=== PATIENT | female | born 1960 | race Caucasian/White ===

== ENCOUNTER 2018-09-24 15:24 | Inpatient (IN) ==
[2018-09-24 16:50] LABS: Basophils % 0.2 %; Eosinophils # 0.2 K/mcL (0.0-0.6); Eosinophils % 1.8 %; Hematocrit 26.6 % (35.3-44.9); Hemoglobin 7.9 g/dL (11.5-15.4); Immature Granulocytes % 0.8 % (0-4); Lymphocytes # 1.5 K/mcL (0.6-4.6); Lymphocytes % 16.8 %; Mean Corpuscular HGB Conc 29.7 g/dL (31.6-35.5); Mean Corpuscular Hemoglobin 27.8 pg (28.0-33.3); Mean Corpuscular Volume 93.7 fL (83.0-100.0); Mean Platelet Volume 8.7 fL (9.4-12.4); Monocytes % 11.3 %; Neutrophils # 6.3 K/mcL (1.6-8.9); Platelet Count 260 K/mcL (140-400); Red Blood Count 2.84 M/mcL (3.82-4.97); Red Cell Distribution Width 15.9 % (11.5-14.5); Segmented Neutrophils % 69.1 %; White Blood Count 9.1 K/mcL (4.3-11.1)
[2018-09-24 17:19] LABS: BUN/Creatinine Ratio 27 (6-26); Blood Urea Nitrogen 28 mg/dL (6-20); Calcium 9.3 mg/dL (8.6-10.3); Carbon Dioxide 42 mEq/L (23-29); Chloride 83 mEq/L (98-107); Glucose 71 mg/dL (70-105); Osmolality,Calculated 286 (280-300); Potassium 4.1 mEq/L (3.5-5.1); Sodium 136 mEq/L (136-145); Troponin I < 0.03 ng/mL (< 0.04); eGFR For African Americans > 60 (> 60); eGFR For Non-African Americans 54 (> 60)
[2018-09-24] MEDS ORDERED: cefTRIAXone 1,000 MG in Water for inj. (sterile) 10 ML IVP ONE (17:30)
[2018-09-24 17:58] LABS: Bilirubin,Urine Negative (Negative); Blood,Urine Moderate (Negative); Clarity,Urine Turbid (Clear); Color,Urine Yellow (Yellow); Glucose,Urine (UA) Normal (Normal); Ketones,Urine Negative (Negative); Leukocyte Esterase,Urine Large (Negative); Nitrite,Urine Positive (Negative); Protein,Urine 30 mg/dL (Neg-Trace); Specific Gravity,Urine 1.011 (1.010-1.025); Urobilinogen,Urine Normal (Normal)
[2018-09-24 18:00] LABS: Bacteria,Urine Many per hpf (None-Few); Hyaline Casts,Urine None Seen per lpf (None-Few); Squamous Epithelial Cell,Urine Many per lpf (None-Few); WBC,Urine TNTC per hpf (0-3)
[2018-09-24] MEDS ORDERED: Furosemide 40 MG/4 ML VIAL IVP ONE (18:22)
--- NOTE | 2018-09-24 18:26 | Emergency Department Note ---
Disposition Clinical Impression: Congestive heart failure, Anemia, UTI (urinary tract infection) Disposition: Admitted As Inpatient Condition: Fair Time of Disposition: 19:00 SOB HPI - General Chief Complaint: ED Shortness of Breath/Dyspnea Stated Complaint: RITU/Swelling Time Seen by Provider: 09/24/18 15:38 Source: patient, other Limitations: no limitations - History of Present Illness Patient is a 58-year-old female with history of CHF and COPD who arrives from the nursing facility for concerns of progressive shortness of breath over the past few weeks. Per the aide at bedside, the patient has been seen at an [facility] facility for these symptoms on multiple occasions, she has been hospitalized in the past, her last ED visit she was given Lasix and discharge. In addition, the patient was seen last at the outlying facility, tightness with UTI and prescribed an antibiotic, however the aide has had this prescription filled but she has not began treatment. The aide at bedside presents today stating that the patient continues to get worse and I will stop her concern about her and feel that she needs to be hospitalized. The patient does complain of source of breath and states "I cannot breathe" continuously. She also complains of bilateral leg pain similar to swelling. In addition, she complains of increased urinary frequency. Patient denies any fevers or chills, nausea, vomiting, chest pain, source of breath, abdominal pain or persistent sym ptoms. - Related Data Home Medications Medication Instructions Recorded Confirmed Aripiprazole [Abilify] 20 mg PO DAILY 08/11/18 09/24/18 Aspirin [Adult Aspirin Regimen] 81 mg PO DAILY 08/11/18 09/24/18 Atorvastatin [Lipitor] 40 mg PO DAILY 08/11/18 09/24/18 Divalproex Sodium 1,000 mg PO BID 08/11/18 09/24/18 Dulaglutide [Trulicity] 0.75 mg SQ BAUTISTA 08/11/18 09/24/18 Furosemide [Lasix] 40 mg PO BID 08/11/18 09/24/18 Gabapentin [Neurontin] 300 mg PO BID 08/11/18 09/24/18 Glucagon,Human Recombinant 1 mg SQ ONCE PRN 08/11/18 09/24/18 [Glucagon Emergency Kit] Glucose Gel 1 tube PO ONCE PRN 08/11/18 09/24/18 Guaifenesin [Mucinex] 600 mg PO Q12H 08/11/18 09/24/18 Ibuprofen [Ibu-200] 200 mg PO Q8H PRN 08/11/18 09/24/18 Insulin ASPART [Novolog Flexpen] 17 unit SQ HS 08/11/18 09/24/18 Insulin ASPART [Novolog Flexpen] 24 unit SQ QAM 08/11/18 09/24/18 Insulin ASPART [Novolog Flexpen] 124 unit SQ QPM 08/11/18 09/24/18 Iprat-Albut 0.5-3(2.5) mg/3 ml 1 vial IH Q6HR PRN 08/11/18 09/24/18 Lactase [Lactaid] 3,000 unit PO Q6H PRN 08/11/18 09/24/18 Levothyroxine [Synthroid] 50 mcg PO DAILY 08/11/18 09/24/18 Lisinopril [Zestril] 40 mg PO DAILY 08/11/18 09/24/18 [place] Carbonate 150 mg PO HS 08/11/18 09/24/18 Loratadine [Allergy Relief] 10 mg PO DAILY 08/11/18 09/24/18 Melatonin 6 mg PO HS 08/11/18 09/24/18 Metformin HCl [Glucophage] 1,000 mg PO BID 08/11/18 09/24/18 Multivitamin [One Daily Essential] 1 tab PO DAILY 08/11/18 09/24/18 [place]-3/Dha/Epa/Fish Oil [[place] 3 2 cap PO HS 08/11/18 09/24/18 500 Softgel] Oxygen 2 l IH DAILY PRN 08/11/18 09/24/18 Ranitidine HCl [Heartburn Relief] 150 mg PO BID 08/11/18 09/24/18 Saline Nasal [place] [[place] Nasal 1 spray NS QID 08/11/18 09/24/18 [place]] Topiramate [Topamax] 25 mg PO BID 08/11/18 09/24/18 hydroCHLOROthiazide 25 mg PO DAILY 08/11/18 09/24/18 [Hydrochlorothiazide] risperiDONE [Risperdal] 3 mg PO DAILY 08/11/18 09/24/18 Cholecalciferol (Vitamin D3) 2,000 unit PO DAILY 09/24/18 09/24/18 [Vitamin D3] Clotrimazole/Betameth Dip CRM 1 appl TP BID 09/24/18 09/24/18 [Lotrisone CRM] Hydrocortisone [Proctozone-Hc] 1 appl TP BID 09/24/18 09/24/18 Insulin DETEMIR [Levemir Flextouch] 85 unit SQ BID 09/24/18 09/24/18 Mag Hydrox/Al Hydrox/Simeth 30 ml PO Q4H PRN 09/24/18 09/24/18 [Maalox] Previous Rx's Medication Instructions Recorded Metoprolol [Lopressor] 12.5 mg PO BID #60 tablet 08/17/18 Allergies Allergy/AdvReac Type Severity Reaction Status Date / Time benztropine Allergy See Verified 08/10/18 21:52 Comments chlorpromazine Allergy See Verified 08/10/18 21:52 [From Thorazine] Comments codeine Allergy See Verified 08/10/18 21:52 Comments haloperidol [From Haldol] Allergy See Verified 08/10/18 21:52 Comments lorazepam Allergy See Verified 08/10/18 21:52 Comments Penicillins Allergy See Verified 08/10/18 21:52 Comments Sulfa (Sulfonamide Allergy See Verified 08/10/18 21:52 Antibiotics) Comments Review of Systems: REVIEW OF SYSTEMS: Constitutional: No F/C, No excessive fatigue Eye: No acute visual changes HENT: No sore throat, No rhinorrhea Resp: Admits to shortness of breath, cough Cardio: No palpitations, No chest pain GI: No abdominal pain, No nausea, No vomiting, No constipation, No diarrhea, No melena or hematochezia : Admits to polyuria, No dysuria, No hematuria Musculoskeletal: No new joint swelling, No back pain Neuro: No isolated numbness or weakness, No headaches Skin: Admits to swelling, No skin yellowing/jaundice, No pruritus Past Medical History - Past Medical History Attestation: Yes The following information was validated with the patient. Medical history: Reports: CHF, COPD, diabetes, GERD, hyperlipidemia, hypertension Psychiatric history: Reports: other - Social History Smoking Status: Never smoker Alcohol use: Reports: none Drug use: Reports: none Physical Exam PHYSICAL EXAM: Constitutional: Obese female, Age HENT: NC/AT, Mucous membranes moist Eyes: No scleral icterus, No photophobia, EOMI Neck: No nuchal rigidity, Supple, Trachea midline Cardiac: Regular rate and rhythm, S1 and S2 normal, no S3, S4, no murmurs gallops or rubs Thorax & Lungs: Mild lung crackles noted diffusely, no wheezes, or rhonchi, No chest tenderness Abdomen: Soft, non-tender, non-distended, no rebound or guarding Skin: Warm, dry, pink, No mottling Extremities: 2+ pitting edema of the bilateral oximeter is, No deformities Musculoskeletal: Normal tone Neurologic: sensory and motor strength fully intact in all extremities, no aphasia or dysarthria Psychiatric: appropriately oriented for baseline - General Limitations: no limitations Course Vital Signs Temperature 98.6 F 09/24/18 15:25 Pulse Rate 92 09/24/18 15:25 Respiratory Rate 20 09/24/18 15:25 Blood Pressure 124/62 09/24/18 15:25 O2 Sat by Pulse Oximetry 89 09/24/18 15:25 Temperature 98.6 F 09/24/18 15:25 Pulse Rate 92 09/24/18 15:25 Respiratory Rate 20 09/24/18 15:25 Blood Pressure 124/62 09/24/18 15:25 O2 Sat by Pulse Oximetry 98 09/24/18 16:42 Oxygen Delivery Oxygen Delivery Nasal [place] Shortness of Breath/Dyspnea - MDM Narrative Medical decision making narrative: Patient is a 58-year-old male who presents from an outlying facility for concerns of increasing soreness of breath and lower external swelling. She has been seen in an outlying facility for the symptoms on additional occasions, prescribed Lasix at that time and discharged home. She presents today with nursing staff stating that they are concerned that her symptoms are worsening. In addition, discussion with the aid at bedside, there is some confusion on whether or not the patient is actually taking Lasix daily as she is prescribed. On physical exam, the patient is overall uncomfortable but nontoxic appearing. She does have diffuse crackles notable throughout all lobes and notable bilateral lower extremity edema. She is afebrile here and hemodynamic stable. On workup performed, she does have a notable increase in diffuse put or edema on her chest x-ray as compared to her prior chest x-ray. In addition, she is slightly anemic at hemoglobin 7.9 as well as positive for UTI which is known to the patient and a bedside which has yet to be treated. She was treated in the emergency department with Lasix as well as started on Rocephin. Based on her overall clinical appearance as well as work up that is performed today, I do feel she wants hospitalization. - Differential Diagnosis Likely: congestive heart failure - Medical Records Medical records reviewed: Yes I reviewed the patient's medical records. - Lab Data Lab results reviewed: Yes I reviewed the patient's lab results. Result diagrams: 09/24/18 16:36 09/24/18 16:36 Lab Results 09/24/18 09/24/18 09/24/18 Range/Units 16:36 16:36 16:36 WBC 9.1 (4.3-11.1) K/mcL RBC 2.84 L (3.82-4.97) M/mcL Hgb 7.9 L (11.5-15.4) g/dL Hct 26.6 L (35.3-44.9) % MCV 93.7 (83.0-100.0) fL MCH 27.8 L (28.0-33.3) pg MCHC 29.7 L (31.6-35.5) g/dL RDW 15.9 H (11.5-14.5) % Plt Count 260 (140-400) K/mcL MPV 8.7 L (9.4-12.4) fL Immature Gran % 0.8 (0-4) % Seg Neutrophils % 69.1 % Lymphocytes % 16.8 % Monocytes % 11.3 % Eosinophils % 1.8 % Basophils % 0.2 % Neutrophils # 6.3 (1.6-8.9) K/mcL Lymphocytes # 1.5 (0.6-4.6) K/mcL Monocytes # 1.0 (0.0-1.3) K/mcL Eosinophils # 0.2 (0.0-0.6) K/mcL Basophils # 0.0 (0.0-0.2) K/mcL Sodium 136 (136-145) mEq/L Potassium 4.1 (3.5-5.1) mEq/L Chloride 83 L (98-107) mEq/L Carbon Dioxide 42 H* (23-29) mEq/L BUN 28 H (6-20) mg/dL Creatinine 1.05 (0.60-1.20) mg/dL Est GFR ( Amer) > 60 (> 60) Est GFR (Non-Af Amer) 54 L (> 60) BUN/Creatinine Ratio 27 H (6-26) Glucose 71 (70-105) mg/dL Calculated Osmolality 286 (280-300) Lactic Acid 0.9 (0.5-2.2) mmol/L Calcium 9.3 (8.6-10.3) mg/dL Troponin I < 0.03 (< 0.04) ng/mL B-Natriuretic Peptide (Less than 100) pg/mL Urine Color (Yellow) Urine Clarity (Clear) Urine pH (5.0-8.0) pH Units Ur Specific [place] (1.010-1.025) Urine Protein (Neg-Trace) mg/dL Urine Glucose (UA) (Normal) mg/dL Urine Ketones (Negative) mg/dL Urine Blood (Negative) Urine Nitrite (Negative) Urine Bilirubin (Negative) Urine Urobilinogen (Normal) mg/dL Ur Leukocyte Esterase (Negative) Urine Microscopic RBC (0-3) per hpf Urine Microscopic WBC (0-3) per hpf Ur Squamous Epith Cells (None-Few) per lpf Urine Bacteria (None-Few) per hpf Hyaline Casts (None-Few) per lpf 09/24/18 09/24/18 09/24/18 Range/Units 16:36 17:36 18:12 WBC (4.3-11.1) K/mcL RBC (3.82-4.97) M/mcL Hgb (11.5-15.4) g/dL Hct (35.3-44.9) % MCV (83.0-100.0) fL MCH (28.0-33.3) pg MCHC (31.6-35.5) g/dL RDW (11.5-14.5) % Plt Count (140-400) K/mcL MPV (9.4-12.4) fL Immature Gran % (0-4) % Seg Neutrophils % % Lymphocytes % % Monocytes % % Eosinophils % % Basophils % % Neutrophils # (1.6-8.9) K/mcL Lymphocytes # (0.6-4.6) K/mcL Monocytes # (0.0-1.3) K/mcL Eosinophils # (0.0-0.6) K/mcL Basophils # (0.0-0.2) K/mcL Sodium (136-145) mEq/L Potassium (3.5-5.1) mEq/L Chloride (98-107) mEq/L Carbon Dioxide (23-29) mEq/L BUN (6-20) mg/dL Creatinine (0.60-1.20) mg/dL Est GFR ( Amer) (> 60) Est GFR (Non-Af Amer) (> 60) BUN/Creatinine Ratio (6-26) Glucose (70-105) mg/dL Calculated Osmolality (280-300) Lactic Acid 0.5 (0.5-2.2) mmol/L Calcium (8.6-10.3) mg/dL Troponin I (< 0.04) ng/mL B-Natriuretic Peptide 110 H (Less than 100) pg/mL Urine Color Yellow (Yellow) Urine Clarity Turbid A (Clear) Urine pH 6.0 (5.0-8.0) pH Units Ur Specific [place] 1.011 (1.010-1.025) Urine Protein 30 H (Neg-Trace) mg/dL Urine Glucose (UA) Normal (Normal) mg/dL Urine Ketones Negative (Negative) mg/dL Urine Blood Moderate H (Negative) Urine Nitrite Positive A (Negative) Urine Bilirubin Negative (Negative) Urine Urobilinogen Normal (Normal) mg/dL Ur Leukocyte Esterase Large H (Negative) Urine Microscopic RBC 5-15 H (0-3) per hpf Urine Microscopic WBC TNTC H (0-3) per hpf Ur Squamous Epith Cells Many H (None-Few) per lpf Urine Bacteria Many H (None-Few) per hpf Hyaline Casts None Seen (None-Few) per lpf - Radiology Data Radiology results reviewed: Yes I reviewed the patient's radiology results. - EKG Data EKG attestation: Yes I reviewed and interpreted this EKG. EKG shows normal: Reports: sinus rhythm, axis Rate: Reports: normal [place]/QRS: Reports: RBBB, LPHB/LPFB, bifascicular block When compared to previous EKG there are: no significant changes Interpretation: Reports: no acute changes
[2018-09-24] MEDS ORDERED: Naloxone 0.4 MG/ML INJ IVP PRN (20:16)
--- NOTE | 2018-09-24 20:16 | Internal Med History&Physical ---
Date of Encounter: 09/24/18 Time of Encounter: 21:04 Internal Medicine - H&P: HPI Chief complaint: CHF exacerbation, urinary tract infection, anemia Admitted From: Emergency Dept Plans for Post Hospital Care: Home History of present illness: Ms. Dill is a 58 year old female Patient presented to the emergency department with shortness of breath that has progressed over the last few weeks. She was recently seen here at this facility, for similar complaints, was found to have a pelvic mass. She was to follow-up with her PCP and be referred to [facility] for further evaluation. She was given Lasix during that admission, and responded well. She had improvement in her breathing as well as lower extremity swelling. For the last several days however patient was getting more short of breath, and had increased urinary frequency. She returned to the emergency department for further evaluation. Emergency department patient's initial vital signs: Temperature 98.6, pulse 92, respiratory rate 20, blood pressure 124/62, O2 saturation 98% on 3 L CBC: White count 9.1, hemoglobin 7.9, platelets 260 BMP: Sodium 136, potassium 4.1, chloride 83, bicarbonate 42, BUN 28, creatinine 1.05, glucose 71 Lactic acid 0.9 Initial troponin undetectable BNP 110 Urinalysis: 30 protein, positive nitrite, large leukocyte esterase, too numerous to count white blood cells, many bacteria. EKG: Sinus rhythm, rate 86, Qtc 481ms. No ischemic changes, no changes from previous EKG. In the emergency department patient received a dose of ceftriaxone and Lasix. She was admitted to the hospital for further evaluation. Upon my evaluation patient is resting comfortably in no acute distress. she says that she is "Swollen all over" and states that she has pain with urination. She also says that she can not catch her breath. She normally wears oxygen at her [facility]. Her hearing care practitioner is not at bedside. Patient denies chest pain, a bdominal pain, nausea, vomiting, diarrhea and constipation. She has had a non- productive cough. Past Med Surg Social Fam HX - Past Medical History Medical history: CHF, COPD, diabetes, GERD, hyperlipidemia, hypertension Psychiatric history: other - Social History Smoking Status: Never smoker Alcohol use: none Drug use: none - Family History Mother History Unknown: Yes Father History Unknown: Yes Internal Medicine - H&P: Meds Aripiprazole [Abilify] 20 mg PO DAILY 08/11/18 [History] Aspirin [Adult Aspirin Regimen] 81 mg PO HS 08/11/18 [History] Atorvastatin [Lipitor] 40 mg PO DAILY 08/11/18 [History] Divalproex Sodium 1,000 mg PO BID 08/11/18 [History] Dulaglutide [Trulicity] 0.75 mg SQ BAUTISTA 08/11/18 [History] Furosemide [Lasix] 40 mg PO BID 08/11/18 [History] Gabapentin [Neurontin] 300 mg PO BID 08/11/18 [History] Glucagon,Human Recombinant [Glucagon Emergency Kit] 1 mg SQ ONCE PRN 08/11/18 [History] Guaifenesin [Mucinex] 600 mg PO DAILY 08/11/18 [History] Ibuprofen [Ibu-200] 200 mg PO Q8H PRN 08/11/18 [History] Insulin ASPART [Novolog Flexpen] 17 unit SQ HS 08/11/18 [History] Insulin ASPART [Novolog Flexpen] 24 unit SQ TIDWM 08/11/18 [History] Lactase [Lactaid] 3,000 unit PO Q6H PRN 08/11/18 [History] Levothyroxine [Synthroid] 50 mcg PO 0730 08/11/18 [History] Loratadine [Allergy Relief] 10 mg PO DAILY 08/11/18 [History] Melatonin 6 mg PO HS 08/11/18 [History] Metformin HCl [Glucophage] 1,000 mg PO BID 08/11/18 [History] Multivitamin [One Daily Essential] 1 tab PO DAILY 08/11/18 [History] [place]-3/Dha/Epa/Fish Oil [[place] 3 500 Softgel] 2 cap PO HS 08/11/18 [History] Ranitidine HCl [Heartburn Relief] 150 mg PO BID 08/11/18 [History] Saline Nasal [place] [[place] Nasal [place]] 1 spray NS QID 08/11/18 [History] Topiramate [Topamax] 25 mg PO BIDWM 08/11/18 [History] hydroCHLOROthiazide [Hydrochlorothiazide] 25 mg PO DAILY 08/11/18 [History] Metoprolol [Lopressor] 12.5 mg PO BID #60 tablet 08/17/18 [Rx] Cholecalciferol (Vitamin D3) [Vitamin D3] 2,000 unit PO DAILY 09/24/18 [History] Clotrimazole/Betameth Dip CRM [Lotrisone CRM] 1 appl TP BID 09/24/18 [History] Hydrocortisone [Proctozone-Hc] 1 appl TP BID 09/24/18 [History] Insulin DETEMIR [Levemir Flextouch] 85 unit SQ Q12H 09/24/18 [History] Ipratropium/Albuterol Neb [Duoneb] 3 ml IH Q6HR PRN 09/24/18 [History] Lisinopril [Zestril] 40 mg PO DAILY 09/24/18 [History] [place] Carbonate 150 mg PO HS 09/24/18 [History] Mag Hydrox/Al Hydrox/Simeth [Maalox] 30 ml PO Q4H PRN 09/24/18 [History] risperiDONE [Risperdal] 3 mg PO DAILY 09/24/18 [History] Allergy/AdvReac Type Severity Reaction Status Date / Time benztropine Allergy See Verified 08/10/18 21:52 Comments chlorpromazine Allergy See Verified 08/10/18 21:52 [From Thorazine] Comments codeine Allergy See Verified 08/10/18 21:52 Comments haloperidol [From Haldol] Allergy See Verified 08/10/18 21:52 Comments lorazepam Allergy See Verified 08/10/18 21:52 Comments Penicillins Allergy See Verified 08/10/18 21:52 Comments Sulfa (Sulfonamide Allergy See Verified 08/10/18 21:52 Antibiotics) Comments All Systems PM: A 10-system review of systems was performed and is negative for pertinent findings except as documented above in the HPI. - Constitutional Vitals: Temp Pulse Resp BP Pulse Ox 98.6 F 92 20 124/62 98 09/24/18 15:25 09/24/18 15:25 09/24/18 15:25 09/24/18 15:25 09/24/18 16:42 General appearance: Present: cooperative, A&O X 3, pleasant, no acute distress, answers questions appropriately Exam: - - Head Head exam: Present: normal inspection - Eye Eye exam: Present: EOMI, normal appearance - Respiratory Respiratory exam: Present: rales. Absent: accessory muscle use, decreased breath sounds, CTAB, respiratory distress, rhonchi, wheezes - Cardiovascular Cardiovascular exam: Present: RRR. Absent: diastolic murmur, systolic murmur - GI/Abdominal GI/Abdominal exam: Present: normal bowel sounds, soft. Absent: tenderness - Extremities Exam Extremities exam: Present: pedal edema, warm, radial pulses palpable and symmetrical. Absent: tenderness Additional comments: 2+ pitting edema bilaterally lower extremities - Neurological Exam Neurological exam: Present: no focal deficits, strengths equal and symetr throughout. Absent: motor sensory deficit, facial droop, speech deficit - Skin Skin exam: Present: dry, erythema, normal color, warm Additional comments: Erythema in lower extremities, not tender to palpation. Likely chronic vascular changes Internal Med - H&P Results - Labs CBC & Chem 7: 09/24/18 16:36 09/24/18 16:36 Labs: Short CBC 09/24/18 Range/Units 16:36 WBC 9.1 (4.3-11.1) K/mcL Hgb 7.9 L (11.5-15.4) g/dL Hct 26.6 L (35.3-44.9) % Plt Count 260 (140-400) K/mcL Neutrophils # 6.3 (1.6-8.9) K/mcL BMP 09/24/18 16:36 Sodium 136 Potassium 4.1 Chloride 83 L Carbon Dioxide 42 H* BUN 28 H Creatinine 1.05 Glucose 71 Calcium 9.3 Cardiac Enzymes 09/24/18 Range/Units 16:36 Troponin I < 0.03 (< 0.04) ng/mL Urine 09/24/18 Range/Units 17:36 Urine Color Yellow (Yellow) Urine Clarity Turbid A (Clear) Urine pH 6.0 (5.0-8.0) pH Units Ur Specific [place] 1.011 (1.010-1.025) Urine Protein 30 H (Neg-Trace) mg/dL Urine Glucose (UA) Normal (Normal) mg/dL - Impressions ITS Impressions Chest X-Ray 09/24/18 15:39 IMPRESSION: Diffuse bilateral heterogeneous opacities, right greater than left. Findings suggest pulmonary edema. Underlying infection is not excluded. Follow-up PA and lateral chest radiographs may be helpful for further evaluation. Cardiomegaly. D/ / Jimbo Sessions / Jimbo Sessions Interpreting Provider: Jimbo Sessions - Assessment and Plan (1) UTI (urinary tract infection) Current Visit: Yes Status: Acute Assessment and plan: Positive urinalysis, patient was started on ceftriaxone in the ER. Urine culture was not originally ordered by ER, but I requested one done on urine obtained prior to the antibiotics. Patient has dysuria as well. Continue ceftriaxone follow up culture results Monitor for worsening signs of infection. Qualifiers: Urinary tract infection type: site unspecified Hematuria presence: with hematuria Qualified Code(s): N39.0 - Urinary tract infection, site not specified; R31.9 - Hematuria, unspecified (2) Congestive heart failure (CHF) Current Visit: No Status: Suspected Assessment and plan: Patient presented with fluid overload, similar to her last admission. Echo attempted at that time, but patient was not cooperative. Given lasix in the ER. Continue IV lasix Strict I's&O's Daily weights Attempt repeat echo Qualifiers: Heart failure type: diastolic Heart failure chronicity: acute on chronic Qualified Code(s): I50.33 - Acute on chronic diastolic (congestive) heart failure (3) Anemia Current Visit: Yes Status: Acute Assessment and plan: Patient's hemoglobin now 7.9, down from 9.7 when she was here about 1 month ago. Denies active bleeding. Does have a pelvic mass which was discovered during her previous admission, was to follow up with [facility]. Based on labs obtained during previous admission, patient has iron deficiency anemia. Start Iron supplementation Type and screen Continue to monitor Transfuse if indicated Qualifiers: Anemia type: unspecified type Qualified Code(s): D64.9 - Anemia, unspecified (4) Peripheral edema Current Visit: No Status: Acute Assessment and plan: Likely secondary to heart failure Reattempt Echocardiogram Continue IV lasix Strict I's&O's Daily weights fluid restriction diet (5) Diabetes Current Visit: No Status: Chronic Assessment and plan: Patient is not insulin dependent diabetic Monitor sugars ACHS Diabetic diet Low dose insulin sliding scale as needed Hold home meds. Qualifiers: Diabetes mellitus type: type 2 Diabetes mellitus intermediate teacher insulin use: with usp use Diabetes mellitus complication status: with hyperglycemia Qualified Code(s): E11.65 - Type 2 diabetes mellitus with hyperglycemia; Z79.4 - senior care (current) use of insulin (6) Cognitive developmental delay Current Visit: No Status: Chronic Assessment and plan: Continue to monitor (7) DVT prophylaxis Current Visit: No Status: Acute Assessment and plan: SCDs - Time Spent With Patient Total time spent is greater than 50% in coordination of care (as documented) at patient's floor/unit and/or counseling patient: Greater than 35 minutes
[2018-09-24] MEDS ORDERED: *HR* Dextrose 50 % in Water (Syg) 50 ML SYRINGE IVP PRN (21:22)
[2018-09-24] MEDS ORDERED: D5% in Water 1,000 ML IVC PRN (21:22)
[2018-09-24] MEDS ORDERED: Dextrose Gel 15 GM/37.5 ML TUBE PO PRN ×2 (21:22)
[2018-09-25 05:04] LABS: ABG Base Excess 15 mEq/L (-2 to 3); ABG HCO3 42 mEq/L (21-27); ABG Oxygen Saturation 88 % (95-98); ABG PCO2 73 mmHg (35-45); ABG PH 7.37 pH Units (7.32-7.45); ABG PO2 60 mmHg (85-104); ABG TCO2 45 mEq/L (20-26)
[2018-09-25 05:49] LABS: BUN/Creatinine Ratio 27 (6-26); Blood Urea Nitrogen 26 mg/dL (6-20); Calcium 9.3 mg/dL (8.6-10.3); Carbon Dioxide 39 mEq/L (23-29); Chloride 85 mEq/L (98-107); Glucose 141 mg/dL (70-105); Osmolality,Calculated 279 (280-300); Potassium 4.1 mEq/L (3.5-5.1); Sodium 131 mEq/L (136-145); eGFR For African Americans > 60 (> 60); eGFR For Non-African Americans 58 (> 60)
[2018-09-25 06:30] LABS: Hematocrit 29.4 % (35.3-44.9); Hemoglobin 8.7 g/dL (11.5-15.4); Mean Corpuscular HGB Conc 29.6 g/dL (31.6-35.5); Mean Corpuscular Hemoglobin 28.7 pg (28.0-33.3); Mean Platelet Volume 9.5 fL (9.4-12.4); Platelet Count 193 K/mcL (140-400); Red Blood Count 3.03 M/mcL (3.82-4.97); Red Cell Distribution Width 16.1 % (11.5-14.5); White Blood Count 8.9 K/mcL (4.3-11.1)
[2018-09-25] MEDS: cefTRIAXone 1,000 MG in Water for inj. (sterile) 10 ML IVP SCH (08:42)
[2018-09-25] MEDS: Insulin LISPRO 300 UNITS/3 ML VIAL SQ SCH ×4 (08:43→22:51)
[2018-09-25] MEDS: Iron Polysaccharide Complex 150 MG CAPSULE PO SCH (08:43)
[2018-09-25] MEDS ORDERED: Furosemide 40 MG/4 ML VIAL IVP SCH (09:00)
--- NOTE | 2018-09-25 15:04 | Internal Med Progress Note ---
Hospitalist Progress Note - Encounter Date of Encounter: 09/25/18 Time of Encounter: 15:04 - Subjective Interval History: Pt was seen and examined at bed side. She is currently on BiPAP. She is sleepy and lethargic. Pt is not communicating verbally. not sure wether this is her baseline - Exam Vitals: Temp Pulse Resp BP Pulse Ox 98.1 F 77 20 161/75 98 09/25/18 11:45 09/25/18 11:45 09/25/18 12:00 09/25/18 11:45 09/25/18 12:00 Exam: Gen: Sleepy and lethargic Chest: Diminished breath sounds B/L, moderate to severe wheezing, No crackles, Rales + Heart: S1S2+ RRR No murmurs Abd: Soft, NT, BS +, No organomegaly Ext: 1-2+ edema, pulses are palpable, No calf tenderness Neuro : No acute focal neuro deficits noticed Skin: No rash. - Assessment and Plan (1) Acute on chronic respiratory failure with hypoxia and hypercapnia Current Visit: Yes Status: Acute Assessment and Plan: cont BiPAP Reviewed ABG from morning ordered repeat stat ABG now will adjust BiPAP settings accordingly Patient does need to stay in the hospital more than 2 midnights due to her complex medical problems. So we will change her to full admission today. I did review my colleague Dr. Graf's H & P including HPI, PMH, PSH, FH, SH, and ROS no changes noticed (2) Reactive airway disease Current Visit: Yes Status: Acute Assessment and Plan: she rutledge shave moderate to severe wheezing started on IV steroids cont frequent bronchodilator therapy continue IV Lasix cont on BiPAP for now (3) Hypoventilation associated with obesity syndrome Current Visit: Yes Status: Acute (4) UTI (urinary tract infection) Current Visit: Yes Status: Acute Assessment and Plan: UA is abnormal started on empirical abx IV Rocephin f/u on urine cx (5) Acute on chronic diastolic CHF (congestive heart failure) Current Visit: Yes Status: Acute (6) Peripheral edema Current Visit: No Status: Acute Assessment and Plan: Likely secondary to heart failure Continue IV lasix Strict I's&O's Daily weights fluid restriction diet (7) DVT prophylaxis Current Visit: No Status: Acute Assessment and Plan: Heparin SQ (8) Cognitive developmental delay Current Visit: No Status: Chronic Assessment and Plan: Continue to monitor (9) Diabetes Current Visit: No Status: Chronic Assessment and Plan: on ADA diet ISS + Levemir (10) Morbid obesity with BMI of 60.0-69.9, adult Current Visit: Yes Status: Acute (11) Anemia Current Visit: Yes Status: Acute Assessment and Plan: Stable Hb@ 8.7 cont close monitoring - Time Spent with Patient Total time spent is greater than 50% in coordination of care (as documented) at patient's floor/unit and/or counseling patient: Internal Medicine: Result - Labs CBC & Chem 7: 09/25/18 06:01 09/25/18 05:11 Labs: Short CBC 09/24/18 09/25/18 Range/Units 16:36 06:01 WBC 9.1 8.9 (4.3-11.1) K/mcL Hgb 7.9 L 8.7 L (11.5-15.4) g/dL Hct 26.6 L 29.4 L (35.3-44.9) % Plt Count 260 193 (140-400) K/mcL Neutrophils # 6.3 (1.6-8.9) K/mcL BMP 09/24/18 09/25/18 16:36 05:11 Sodium 136 131 L Potassium 4.1 4.1 Chloride 83 L 85 L Carbon Dioxide 42 H* 39 H BUN 28 H 26 H Creatinine 1.05 0.98 Glucose 71 141 H Calcium 9.3 9.3 Cardiac Enzymes 09/24/18 Range/Units 16:36 Troponin I < 0.03 (< 0.04) ng/mL Urine 09/24/18 Range/Units 17:36 Urine Color Yellow (Yellow) Urine Clarity Turbid A (Clear) Urine pH 6.0 (5.0-8.0) pH Units Ur Specific [place] 1.011 (1.010-1.025) Urine Protein 30 H (Neg-Trace) mg/dL Urine Glucose (UA) Normal (Normal) mg/dL - ABG Interpretation ABG results: ABG ABG pH 7.37 pH Units (7.32-7.45) 09/25/18 04:55 ABG pCO2 73 mmHg (35-45) H* 09/25/18 04:55 ABG pO2 60 mmHg (85-104) L 09/25/18 04:55 ABG O2 Saturation 88 % (95-98) L 09/25/18 04:55 - Impressions Impressions Chest X-Ray 09/24/18 15:39 IMPRESSION: Diffuse bilateral heterogeneous opacities, right greater than left. Findings suggest pulmonary edema. Underlying infection is not excluded. Follow-up PA and lateral chest radiographs may be helpful for further evaluation. Cardiomegaly. D/ / Jimbo Sessions / Jimbo Gonzáles Interpreting Provider: Jimbo Sessions Consult Discharge Plan - Plan Referrals: Remy Richardson MD [Primary Care Provider] - 09/29/18 12:00 pm (2) Reactive airway disease Qualifiers: Asthma severity: moderate Asthma complication type: with acute exacerbation (4) UTI (urinary tract infection) Qualifiers: Urinary tract infection type: site unspecified Hematuria presence: with hematuria Qualified Code(s): N39.0 - Urinary tract infection, site not specified; R31.9 - Hematuria, unspecified (9) Diabetes Qualifiers: Diabetes mellitus type: type 2 Diabetes mellitus residential insulin use: with long term care pharmacist use Diabetes mellitus complication status: with hyperglycemia Qualified Code(s): E11.65 - Type 2 diabetes mellitus with hyperglycemia; Z79.4 - board hammer operator (current) use of insulin (11) Anemia Qualifiers: Anemia type: unspecified type Qualified Code(s): D64.9 - Anemia, unspecified
[2018-09-25 15:50] LABS: Blood Gas PEEP 10 cm H2O; VBG HCO3 46 mEq/L (21-27); VBG PCO2 83 mmHg (41-51); VBG PH 7.35 pH Units (7.32-7.42); VBG PO2 29 mmHg (25-50)
[2018-09-25] MEDS: Ipratropium/Albuterol Neb 3 ML IH SCH ×3 (16:14→23:26)
[2018-09-25] MEDS: ARIPiprazole 10 MG TABLET PO SCH (16:36)
[2018-09-25] MEDS: Furosemide 40 MG/4 ML VIAL IVP SCH (16:36)
[2018-09-25] MEDS: *HR* Heparin 5,000 UNIT/ML VIAL SQ SCH (16:36)
[2018-09-25] MEDS: RisperiDAL 3 MG TABLET PO SCH (16:36)
[2018-09-25] MEDS: Lisinopril 20 MG TABLET PO SCH (16:36)
[2018-09-25] MEDS: Topiramate 25 MG TABLET PO SCH (16:36)
[2018-09-25] MEDS: MethylPREDNISolone 40 MG/ML VIAL IVP SCH ×2 (16:37→22:54)
[2018-09-25] MEDS: Ibuprofen 200 MG TABLET PO PRN (18:58)
[2018-09-25] MEDS: Divalproex (12 HR) 500 MG TABLET PO SCH (21:39)
[2018-09-25] MEDS: Melatonin 3 MG TABLET PO SCH (21:39)
[2018-09-25] MEDS: Gabapentin 300 MG CAPSULE PO SCH (21:39)
[2018-09-25] MEDS: Aspirin Enteric Coated 81 MG Tablet PO SCH (21:40)
[2018-09-25] MEDS: Famotidine 20 MG TABLET PO SCH (21:40)
[2018-09-25] MEDS ORDERED: Acetaminophen 325 MG TABLET PO ONE (22:37)
[2018-09-25] MEDS: Lithium Oral Soln 300 MG/5 ML (8 mEq/5mL) UDC PO SCH (22:44)
[2018-09-26] MEDS: Ipratropium/Albuterol Neb 3 ML IH SCH ×5 (04:13→19:48)
[2018-09-26 04:38] LABS: ABG Base Excess 15 mEq/L (-2 to 3); ABG HCO3 44 mEq/L (21-27); ABG Oxygen Saturation 93 % (95-98); ABG PCO2 86 mmHg (35-45); ABG PH 7.32 pH Units (7.32-7.45); ABG PO2 79 mmHg (85-104); ABG TCO2 47 mEq/L (20-26); Blood Gas Modality NIV
[2018-09-26] MEDS: *HR* Heparin 5,000 UNIT/ML VIAL SQ SCH ×2 (06:06→17:42)
[2018-09-26 06:53] LABS: Hematocrit 29.4 % (35.3-44.9); Hemoglobin 8.6 g/dL (11.5-15.4); Mean Corpuscular HGB Conc 29.3 g/dL (31.6-35.5); Mean Corpuscular Hemoglobin 28.3 pg (28.0-33.3); Mean Corpuscular Volume 96.7 fL (83.0-100.0); Mean Platelet Volume 9.1 fL (9.4-12.4); Platelet Count 283 K/mcL (140-400); Red Blood Count 3.04 M/mcL (3.82-4.97); Red Cell Distribution Width 15.5 % (11.5-14.5)
[2018-09-26 07:25] LABS: Alanine Aminotransferase 19 Units/L (7-52); Albumin 3.6 g/dL (3.5-5.7); Albumin/Globulin Ratio 1.3 (1.1-2.2); Alkaline Phosphatase 63 Units/L (34-104); Aspartate Amino Transferase 18 Units/L (13-39); BUN/Creatinine Ratio 24 (6-26); Bilirubin,Total 0.3 mg/dL (0.3-1.0); Blood Urea Nitrogen 24 mg/dL (6-20); Calcium 10.1 mg/dL (8.6-10.3); Carbon Dioxide 42 mEq/L (23-29); Chloride 85 mEq/L (98-107); Globulin 2.8 g/dL (2.4-3.5); Glucose 345 mg/dL (70-105); Magnesium 2.1 mg/dL (1.6-2.6); Osmolality,Calculated 292 (280-300); Potassium 4.5 mEq/L (3.5-5.1); Sodium 132 mEq/L (136-145); Total Protein 6.4 g/dL (6.4-8.9); eGFR For African Americans > 60 (> 60); eGFR For Non-African Americans 56 (> 60)
[2018-09-26 08:11] LABS: ABG Base Excess 17 mEq/L (-2 to 3); ABG HCO3 46 mEq/L (21-27); ABG Oxygen Saturation 92 % (95-98); ABG PCO2 83 mmHg (35-45); ABG PH 7.35 pH Units (7.32-7.45); ABG PO2 73 mmHg (85-104); ABG TCO2 48 mEq/L (20-26); Blood Gas VT 500 cc
[2018-09-26] MEDS: ARIPiprazole 10 MG TABLET PO SCH (09:15)
[2018-09-26] MEDS: Lisinopril 20 MG TABLET PO SCH (09:16)
[2018-09-26] MEDS: Divalproex (12 HR) 500 MG TABLET PO SCH ×2 (09:16→21:14)
[2018-09-26] MEDS: Topiramate 25 MG TABLET PO SCH ×2 (09:16→17:18)
[2018-09-26] MEDS: Gabapentin 300 MG CAPSULE PO SCH ×2 (09:16→21:14)
[2018-09-26] MEDS: MethylPREDNISolone 40 MG/ML VIAL IVP SCH ×2 (09:16→17:17)
[2018-09-26] MEDS: Furosemide 40 MG/4 ML VIAL IVP SCH (09:16)
[2018-09-26] MEDS: Famotidine 20 MG TABLET PO SCH ×2 (09:16→21:14)
[2018-09-26] MEDS: cefTRIAXone 1,000 MG in Water for inj. (sterile) 10 ML IVP SCH (09:17)
[2018-09-26] MEDS: Iron Polysaccharide Complex 150 MG CAPSULE PO SCH (09:19)
[2018-09-26] MEDS: RisperiDAL 3 MG TABLET PO SCH (09:19)
[2018-09-26] MEDS: Insulin LISPRO 300 UNITS/3 ML VIAL SQ SCH ×4 (09:23→20:38)
[2018-09-26] MEDS ORDERED: Haloperidol Lactate 5 MG/ML VIAL IVP PRN (10:58)
[2018-09-26] MEDS: Ibuprofen 200 MG TABLET PO PRN (12:12)
--- NOTE | 2018-09-26 15:25 | Internal Med Progress Note ---
Hospitalist Progress Note - Encounter Date of Encounter: 09/26/18 Time of Encounter: 09:00 - Subjective Interval History: Pt was seen and examined at bed side. Today she is more alert, awake and O x 3 She is getting agitated at times, wanted to go back to jail today. She denied any CP. Still has moderate SOB and DUONG. - Exam Vitals: Temp Pulse Resp BP Pulse Ox 97.5 F L 65 13 160/67 96 09/26/18 11:57 09/26/18 11:57 09/26/18 15:19 09/26/18 11:57 09/26/18 15:19 Exam: Gen: A, A, O x3 Chest: Diminished breath sounds B/L, moderate wheezing, No crackles, Rales + Heart: S1S2+ RRR No murmurs Abd: Soft, NT, BS +, No organomegaly Ext: 1+ edema, pulses are palpable, No calf tenderness Neuro : No acute focal neuro deficits noticed Skin: No rash. - Assessment and Plan (1) Acute on chronic respiratory failure with hypoxia and hypercapnia Current Visit: Yes Status: Acute Assessment and Plan: cont BiPAP as needed during day time and continuous at HS Reviewed ABG from morning Ph: 7.35 and Pco2-83 Little better cont frequent bronchodilators and steroid therapy (2) Reactive airway disease Current Visit: Yes Status: Acute Assessment and Plan: Improving start tapering IV steroids cont frequent bronchodilator therapy continue IV Lasix cont on BiPAP for now (3) Hypoventilation associated with obesity syndrome Current Visit: Yes Status: Acute (4) UTI (urinary tract infection) Current Visit: Yes Status: Acute Assessment and Plan: UA is abnormal con empirical abx IV Rocephin urine culture is growing gram-negative rods (5) Acute on chronic diastolic CHF (congestive heart failure) Current Visit: Yes Status: Acute Assessment and Plan: Improving switched to IV Lasix 20 mg b.i.d. continue other home medications ASA, Statin, Metoprolol and Lisinopril Will repeat another Echo since her Echo from 08/02 was unable to interpret (6) Peripheral edema Current Visit: No Status: Acute Assessment and Plan: Likely secondary to heart failure Continue IV lasix Strict I's&O's Daily weights fluid restriction diet (7) DVT prophylaxis Current Visit: No Status: Acute Assessment and Plan: Heparin SQ (8) Cognitive developmental delay Current Visit: No Status: Chronic Assessment and Plan: Continue to monitor (9) Diabetes Current Visit: No Status: Chronic Assessment and Plan: on ADA diet ISS + Levemir (10) Morbid obesity with BMI of 60.0-69.9, adult Current Visit: Yes Status: Acute (11) Anemia Current Visit: Yes Status: Acute Assessment and Plan: Stable Hb@ 8.7 cont close monitoring - Time Spent with Patient Total time spent is greater than 50% in coordination of care (as documented) at patient's floor/unit and/or counseling patient: Internal Medicine: Result - Labs CBC & Chem 7: 09/26/18 06:36 09/26/18 06:36 Labs: Short CBC 09/26/18 Range/Units 06:36 WBC 8.0 (4.3-11.1) K/mcL Hgb 8.6 L (11.5-15.4) g/dL Hct 29.4 L (35.3-44.9) % Plt Count 283 (140-400) K/mcL BMP 09/26/18 06:36 Sodium 132 L Potassium 4.5 Chloride 85 L Carbon Dioxide 42 H* BUN 24 H Creatinine 1.01 Glucose 345 H Calcium 10.1 Liver Function 09/26/18 Range/Units 06:36 Total Bilirubin 0.3 (0.3-1.0) mg/dL AST 18 (13-39) Units/L ALT 19 (7-52) Units/L Alkaline Phosphatase 63 (34-104) Units/L Albumin 3.6 (3.5-5.7) g/dL - ABG Interpretation ABG results: ABG ABG pH 7.35 pH Units (7.32-7.45) 09/26/18 08:02 ABG pCO2 83 mmHg (35-45) H* 09/26/18 08:02 ABG pO2 73 mmHg (85-104) L 09/26/18 08:02 ABG O2 Saturation 92 % (95-98) L 09/26/18 08:02 Consult Discharge Plan - Plan Referrals: Remy Richardson MD [Primary Care Provider] - 09/29/18 12:00 pm (2) Reactive airway disease Qualifiers: Asthma severity: moderate Asthma complication type: with acute exacerbation (4) UTI (urinary tract infection) Qualifiers: Urinary tract infection type: site unspecified Hematuria presence: with hematuria Qualified Code(s): N39.0 - Urinary tract infection, site not specified; R31.9 - Hematuria, unspecified (9) Diabetes Qualifiers: Diabetes mellitus type: type 2 Diabetes mellitus terminal system operator insulin use: with [facility] use Diabetes mellitus complication status: with hyperglycemia Qualified Code(s): E11.65 - Type 2 diabetes mellitus with hyperglycemia; Z79.4 - intermediate designer (current) use of insulin (11) Anemia Qualifiers: Anemia type: unspecified type Qualified Code(s): D64.9 - Anemia, unspecified
[2018-09-26] MEDS: Furosemide 20 MG/2 ML VIAL IVP SCH (17:17)
[2018-09-26] MEDS: Melatonin 3 MG TABLET PO SCH (21:13)
[2018-09-26] MEDS: Aspirin Enteric Coated 81 MG Tablet PO SCH (21:14)
[2018-09-26] MEDS ORDERED: Insulin DETEMIR 100 UNIT/ML X5UNITS SQ ONE (22:49)
[2018-09-26] MEDS: Lithium Oral Soln 300 MG/5 ML (8 mEq/5mL) UDC PO SCH (23:33)
[2018-09-27] MEDS: Ipratropium/Albuterol Neb 3 ML IH SCH ×7 (00:05→23:53)
[2018-09-27] MEDS ORDERED: Insulin DETEMIR 100 UNIT/ML X5UNITS SQ ONE ×2 (02:01→05:22)
[2018-09-27] MEDS: MethylPREDNISolone 40 MG/ML VIAL IVP SCH (05:45)
[2018-09-27] MEDS: *HR* Heparin 5,000 UNIT/ML VIAL SQ SCH ×2 (05:45→17:41)
[2018-09-27 05:53] LABS: Hematocrit 28.5 % (35.3-44.9); Hemoglobin 8.4 g/dL (11.5-15.4); Mean Corpuscular HGB Conc 29.5 g/dL (31.6-35.5); Mean Platelet Volume 9.3 fL (9.4-12.4); Platelet Count 309 K/mcL (140-400); Red Cell Distribution Width 15.6 % (11.5-14.5); White Blood Count 7.7 K/mcL (4.3-11.1)
[2018-09-27 06:15] LABS: Calcium 9.9 mg/dL (8.6-10.3); Magnesium 2.1 mg/dL (1.6-2.6); Potassium 4.3 mEq/L (3.5-5.1)
[2018-09-27] MEDS ORDERED: acetaZOLAMIDE 250 MG TABLET PO ONE ×2 (09:26→19:55)
[2018-09-27] MEDS: Insulin LISPRO 300 UNITS/3 ML VIAL SQ SCH ×3 (09:41→17:41)
[2018-09-27] MEDS: Gabapentin 300 MG CAPSULE PO SCH ×2 (09:42→21:01)
[2018-09-27] MEDS: Divalproex (12 HR) 500 MG TABLET PO SCH ×2 (09:42→20:59)
[2018-09-27] MEDS: ARIPiprazole 10 MG TABLET PO SCH (09:42)
[2018-09-27] MEDS: Iron Polysaccharide Complex 150 MG CAPSULE PO SCH (09:42)
[2018-09-27] MEDS: RisperiDAL 3 MG TABLET PO SCH (09:42)
[2018-09-27] MEDS: Lisinopril 20 MG TABLET PO SCH (09:42)
[2018-09-27] MEDS: Topiramate 25 MG TABLET PO SCH ×2 (09:42→17:40)
[2018-09-27] MEDS: Famotidine 20 MG TABLET PO SCH ×2 (09:42→22:16)
[2018-09-27] MEDS: cefTRIAXone 1,000 MG in Water for inj. (sterile) 10 ML IVP SCH ×2 (09:43→10:19)
[2018-09-27] MEDS: Furosemide 20 MG/2 ML VIAL IVP SCH ×2 (09:44→10:18)
--- NOTE | 2018-09-27 09:59 | Internal Med Progress Note ---
Hospitalist Progress Note - Encounter Date of Encounter: 09/27/18 Time of Encounter: 09:57 - Subjective Interval History: Pt is more alert, awake and O x 3 today. She is still getting agitated at times. She is currently on 4 lit Oxymask. Denied any CP. Her SOB and DUONG are little better. - Exam Vitals: Temp Pulse Resp BP Pulse Ox 98.0 F 98 17 188/76 96 09/27/18 06:45 09/27/18 06:45 09/27/18 06:45 09/27/18 06:45 09/27/18 06:45 Exam: Gen: A, A, O x3 Chest: Diminished breath sounds B/L, moderate wheezing, No crackles, Rales + Heart: S1S2+ RRR No murmurs Abd: Soft, NT, BS +, No organomegaly Ext: 1+ edema, pulses are palpable, No calf tenderness Neuro : No acute focal neuro deficits noticed Skin: No rash. - Assessment and Plan (1) Acute on chronic respiratory failure with hypoxia and hypercapnia Current Visit: Yes Status: Acute Assessment and Plan: cont BiPAP as needed during day time and continuous at HS cont frequent bronchodilators and steroid therapy She does have chronic hypercapneic resp failure She does need to use BiPAP at ECF / detention (2) Reactive airway disease Current Visit: Yes Status: Acute Assessment and Plan: Improving switched to PO steroids today cont frequent bronchodilator therapy Held Lasix due to worsening Cr cont on BiPAP for now (3) Hypoventilation associated with obesity syndrome Current Visit: Yes Status: Acute Assessment and Plan: Need to use BiPAP at night time Will inform ECF and detention people (4) UTI (urinary tract infection) Current Visit: Yes Status: Acute Assessment and Plan: UA is abnormal urine culture is growing gram-negative rods con empirical abx IV Rocephin (5) Acute on chronic diastolic CHF (congestive heart failure) Current Visit: Yes Status: Acute Assessment and Plan: Improving Held Lasix today - since her Cr worsening Ordered Acetazolamide x 2 doses continue other home medications ASA, Statin, Metoprolol and Lisinopril Will repeat another Echo since her Echo from 08/02 was unable to interpret (6) Peripheral edema Current Visit: No Status: Acute Assessment and Plan: Likely secondary to heart failure Continue IV lasix Strict I's&O's Daily weights fluid restriction diet (7) DVT prophylaxis Current Visit: No Status: Acute Assessment and Plan: Heparin SQ (8) Cognitive developmental delay Current Visit: No Status: Chronic Assessment and Plan: Continue to monitor (9) Diabetes Current Visit: No Status: Chronic Assessment and Plan: on ADA diet Fairly controlled BS could be due to steroids start tapering steroids Inc ISS to High grade Inc Levemir dose (10) Morbid obesity with BMI of 60.0-69.9, adult Current Visit: Yes Status: Acute (11) Anemia Current Visit: Yes Status: Acute Assessment and Plan: Stable Hb@ 8.7 cont close monitoring - Time Spent with Patient Total time spent is greater than 50% in coordination of care (as documented) at patient's floor/unit and/or counseling patient: Internal Medicine: Result - Labs CBC & Chem 7: 09/27/18 05:14 09/27/18 05:14 Labs: Short CBC 09/27/18 Range/Units 05:14 WBC 7.7 (4.3-11.1) K/mcL Hgb 8.4 L (11.5-15.4) g/dL Hct 28.5 L (35.3-44.9) % Plt Count 309 (140-400) K/mcL BMP 09/27/18 05:14 Sodium 135 L Potassium 4.3 Chloride 87 L Carbon Dioxide 42 H* BUN 28 H Creatinine 1.22 H Glucose 369 H Calcium 9.9 - ABG Interpretation ABG results: ABG ABG pH 7.35 pH Units (7.32-7.45) 09/26/18 08:02 ABG pCO2 83 mmHg (35-45) H* 09/26/18 08:02 ABG pO2 73 mmHg (85-104) L 09/26/18 08:02 ABG O2 Saturation 92 % (95-98) L 09/26/18 08:02 Consult Discharge Plan - Plan Referrals: Remy Richardson MD [Primary Care Provider] - 09/29/18 12:00 pm (2) Reactive airway disease Qualifiers: Asthma severity: moderate Asthma complication type: with acute exacerbation (4) UTI (urinary tract infection) Qualifiers: Urinary tract infection type: site unspecified Hematuria presence: with hematuria Qualified Code(s): N39.0 - Urinary tract infection, site not specified; R31.9 - Hematuria, unspecified (9) Diabetes Qualifiers: Diabetes mellitus type: type 2 Diabetes mellitus halfway insulin use: with long term care phlebotomist use Diabetes mellitus complication status: with hyperglycemia [place] lified Code(s): E11.65 - Type 2 diabetes mellitus with hyperglycemia; Z79.4 - skilled nursing (current) use of insulin (11) Anemia Qualifiers: Anemia type: unspecified type Qualified Code(s): D64.9 - Anemia, unspecified
[2018-09-27] MEDS ORDERED: Insulin LISPRO 300 UNITS/3 ML VIAL SQ SCH (10:07)
[2018-09-27] MEDS: Insulin DETEMIR 100 UNIT/ML X5UNITS SQ SCH ×2 (11:40→21:00)
[2018-09-27] MEDS ORDERED: Perflutren Lipid Microsphere 1.3 ML in 0.9 % Sodium Chloride 8.7 ML IVP ONE (19:30)
[2018-09-27] MEDS: Aspirin Enteric Coated 81 MG Tablet PO SCH (20:58)
[2018-09-27] MEDS: Melatonin 3 MG TABLET PO SCH (21:00)
[2018-09-27] MEDS: Lithium Oral Soln 300 MG/5 ML (8 mEq/5mL) UDC PO SCH (21:00)
[2018-09-27] MEDS: Cefdinir 300 MG CAPSULE PO SCH (21:01)
[2018-09-28] MEDS: Ipratropium/Albuterol Neb 3 ML IH SCH ×3 (04:08→10:43)
[2018-09-28 04:55] LABS: Hemoglobin 8.5 g/dL (11.5-15.4); Mean Platelet Volume 8.9 fL (9.4-12.4)
[2018-09-28 04:56] LABS: Hematocrit 29.3 % (35.3-44.9); Mean Corpuscular Hemoglobin 28.1 pg (28.0-33.3); Platelet Count 286 K/mcL (140-400); Red Blood Count 3.02 M/mcL (3.82-4.97); Red Cell Distribution Width 15.7 % (11.5-14.5); White Blood Count 8.6 K/mcL (4.3-11.1)
[2018-09-28 05:18] LABS: BUN/Creatinine Ratio 32 (6-26); Blood Urea Nitrogen 30 mg/dL (6-20); Carbon Dioxide 38 mEq/L (23-29); Chloride 93 mEq/L (98-107); Glucose 242 mg/dL (70-105); Osmolality,Calculated 298 (280-300); Potassium 4.1 mEq/L (3.5-5.1); Sodium 137 mEq/L (136-145); eGFR For African Americans > 60 (> 60); eGFR For Non-African Americans > 60 (> 60)
[2018-09-28] MEDS: *HR* Heparin 5,000 UNIT/ML VIAL SQ SCH (05:32)
[2018-09-28] MEDS ORDERED: predniSONE 20 MG TABLET PO SCH (09:00)
[2018-09-28] MEDS: Insulin LISPRO 300 UNITS/3 ML VIAL SQ SCH ×2 (09:58→12:28)
[2018-09-28] MEDS: ARIPiprazole 10 MG TABLET PO SCH (10:01)
[2018-09-28] MEDS: Lisinopril 20 MG TABLET PO SCH (10:02)
[2018-09-28] MEDS: Famotidine 20 MG TABLET PO SCH (10:03)
[2018-09-28] MEDS: Topiramate 25 MG TABLET PO SCH (10:03)
[2018-09-28] MEDS: Iron Polysaccharide Complex 150 MG CAPSULE PO SCH (10:05)
[2018-09-28] MEDS: Cefdinir 300 MG CAPSULE PO SCH (10:05)
[2018-09-28] MEDS: Gabapentin 300 MG CAPSULE PO SCH (10:06)
[2018-09-28] MEDS: Divalproex (12 HR) 500 MG TABLET PO SCH (10:09)
[2018-09-28] MEDS: RisperiDAL 3 MG TABLET PO SCH (10:10)
[2018-09-28] MEDS: Insulin DETEMIR 100 UNIT/ML X5UNITS SQ SCH (10:15)
[2018-09-28 11:08] VITALS: BP 168/60
--- NOTE | 2018-09-28 11:30 | Discharge Summary ---
- NOTES TO OUTPATIENT PROVIDER Notes to Outpatient Provider: f/u with PCP in one week. f/u with Pulmonary in 2-3 weeks. Please continue BiPAP at night time with settings 12/8 with Fio2 - 36%. Date of Encounter: 09/28/18 Time of Encounter: 11:28 - Discharge Diagnosis (1) Acute on chronic respiratory failure with hypoxia and hypercapnia Priority: Primary Status: Acute (2) Reactive airway disease Priority: Primary Status: Acute Qualifiers: Asthma severity: moderate Asthma complication type: with acute exacerbation Qualified Code(s): J45.41 - Moderate persistent asthma with (acute) exacerbation (3) Hypoventilation associated with obesity syndrome Priority: Primary Status: Acute (4) UTI (urinary tract infection) Priority: Primary Status: Acute Qualifiers: Urinary tract infection type: site unspecified Hematuria presence: with hematuria Qualified Code(s): N39.0 - Urinary tract infection, site not specified; R31.9 - Hematuria, unspecified (5) Acute on chronic diastolic CHF (congestive heart failure) Priority: Secondary Status: Acute (6) Peripheral edema Priority: Secondary Status: Acute (7) DVT prophylaxis Priority: Secondary Status: Acute (8) Cognitive developmental delay Priority: Secondary Status: Chronic (9) Diabetes Priority: Secondary Status: Chronic Qualifiers: Diabetes mellitus type: type 2 Diabetes mellitus computer terminal operator insulin use: with computer terminal operator use Diabetes mellitus complication status: with hyperglycemia Qualified Code(s): E11.65 - Type 2 diabetes mellitus with hyperglycemia; Z79.4 - terminal make up operator (current) use of insulin (10) Morbid obesity with BMI of 60.0-69.9, adult Priority: Secondary Status: Acute (11) Anemia Priority: Secondary Status: Acute Qualifiers: Anemia type: unspecified type Qualified Code(s): D64.9 - Anemia, unspecif ied Hospital course: Ms. Dill is a 58 year old female with known PMH of Diastolci CHF, HTN, HLD, GERD, DM2, Asthma / COPD, chronic hypercapneic resp failure and hypoventilation syndrome pt was brought into ER from a assisted after she started c/o progressively worsening SOB / DUONG and b/l LE edema. She happened to have acute on chronic hyper capneic resp failure. We started her on BiPAP x 36 hrs, and started on empirical abx and IV steroids. Pt was also started on IV diuretics. Her symptoms started improving slowly. She does need to use BiPAP at night time and as needed during day time due to her hypercapneic resp failure. She does have acute UTI too, urine cx did grow E. Coli. So recommend to continue empirical abx Omnicef for 3 more days. Pt was evaluated by PT / OT who recommended ECF placement for short term rehab. So will d/c her to ECF in stable condition today. - Time Spent with Patient Total time spent providing and/or coordinating discharge services: - Discharge Medications Prescriptions: New Cefdinir [Omnicef] 300 mg PO BID #6 capsule predniSONE [PredniSONE] 40 mg PO DAILY #10 tablet Continued Glucagon,Human Recombinant [Glucagon Emergency Kit] 1 mg SQ ONCE PRN PRN Reason: Hypoglycemia Divalproex Sodium 1,000 mg PO BID Ranitidine HCl [Heartburn Relief] 150 mg PO BID Metformin HCl [Glucophage] 1,000 mg PO BID Gabapentin [Neurontin] 300 mg PO BID Furosemide [Lasix] 40 mg PO BID Topiramate [Topamax] 25 mg PO BIDWM [place]-3/Dha/Epa/Fish Oil [[place] 3 500 Softgel] 2 cap PO HS Melatonin 6 mg PO HS Guaifenesin [Mucinex] 600 mg PO DAILY Loratadine [Allergy Relief] 10 mg PO DAILY Atorvastatin [Lipitor] 40 mg PO DAILY Levothyroxine [Synthroid] 50 mcg PO 0730 Aripiprazole [Abilify] 20 mg PO DAILY Aspirin [Adult Aspirin Regimen] 81 mg PO HS Multivitamin [One Daily Essential] 1 tab PO DAILY Dulaglutide [Trulicity] 0.75 mg SQ BAUTISTA Ibuprofen [Ibu-200] 200 mg PO Q8H PRN PRN Reason: Pain Insulin ASPART [Novolog Flexpen] 24 unit SQ TIDWM Insulin ASPART [Novolog Flexpen] 17 unit SQ HS Lactase [Lactaid] 3,000 unit PO Q6H PRN PRN Reason: Lactose Intolerance Saline Nasal [place] [[place] Nasal [place]] 1 spray NS QID Metoprolol [Lopressor] 12.5 mg PO BID #60 tablet Clotrimazole/Betameth Dip CRM [Lotrisone CRM] 1 appl TP BID Insulin DETEMIR [Levemir Flextouch] 85 unit SQ Q12H Cholecalciferol (Vitamin D3) [Vitamin D3] 2,000 unit PO DAILY Hydrocortisone [Proctozone-Hc] 1 appl TP BID Mag Hydrox/Al Hydrox/Simeth [Maalox] 30 ml PO Q4H PRN PRN Reason: Indigestion Lisinopril [Zestril] 40 mg PO DAILY [place] Carbonate 150 mg PO HS risperiDONE [Risperdal] 3 mg PO DAILY Ipratropium/Albuterol Neb [Duoneb] 3 ml IH Q6HR PRN PRN Reason: Shortness Of Breath Discontinued hydroCHLOROthiazide [Hydrochlorothiazide] 25 mg PO DAILY Home Medications: Aripiprazole [Abilify] 20 mg PO DAILY 08/11/18 [History] Aspirin [Adult Aspirin Regimen] 81 mg PO HS 08/11/18 [History] Atorvastatin [Lipitor] 40 mg PO DAILY 08/11/18 [History] Divalproex Sodium 1,000 mg PO BID 08/11/18 [History] Dulaglutide [Trulicity] 0.75 mg SQ BAUTISTA 08/11/18 [History] Furosemide [Lasix] 40 mg PO BID 08/11/18 [History] Gabapentin [Neurontin] 300 mg PO BID 08/11/18 [History] Glucagon,Human Recombinant [Glucagon Emergency Kit] 1 mg SQ ONCE PRN 08/11/18 [History] Guaifenesin [Mucinex] 600 mg PO DAILY 08/11/18 [History] Ibuprofen [Ibu-200] 200 mg PO Q8H PRN 08/11/18 [History] Insulin ASPART [Novolog Flexpen] 17 unit SQ HS 08/11/18 [History] Insulin ASPART [Novolog Flexpen] 24 unit SQ TIDWM 08/11/18 [History] Lactase [Lactaid] 3,000 unit PO Q6H PRN 08/11/18 [History] Levothyroxine [Synthroid] 50 mcg PO 0730 08/11/18 [History] Loratadine [Allergy Relief] 10 mg PO DAILY 08/11/18 [History] Melatonin 6 mg PO HS 08/11/18 [History] Metformin HCl [Glucophage] 1,000 mg PO BID 08/11/18 [History] Multivitamin [One Daily Essential] 1 tab PO DAILY 08/11/18 [History] [place]-3/Dha/Epa/Fish Oil [[place] 3 500 Softgel] 2 cap PO HS 08/11/18 [History] Ranitidine HCl [Heartburn Relief] 150 mg PO BID 08/11/18 [History] Saline Nasal [place] [[place] Nasal [place]] 1 spray NS QID 08/11/18 [History] Topiramate [Topamax] 25 mg PO BIDWM 08/11/18 [History] Metoprolol [Lopressor] 12.5 mg PO BID #60 tablet 08/17/18 [Rx] Cholecalciferol (Vitamin D3) [Vitamin D3] 2,000 unit PO DAILY 09/24/18 [History] Clotrimazole/Betameth Dip CRM [Lotrisone CRM] 1 appl TP BID 09/24/18 [History] Hydrocortisone [Proctozone-Hc] 1 appl TP BID 09/24/18 [History] Insulin DETEMIR [Levemir Flextouch] 85 unit SQ Q12H 09/24/18 [History] Ipratropium/Albuterol Neb [Duoneb] 3 ml IH Q6HR PRN 09/24/18 [History] Lisinopril [Zestril] 40 mg PO DAILY 09/24/18 [History] [place] Carbonate 150 mg PO HS 09/24/18 [History] Mag Hydrox/Al Hydrox/Simeth [Maalox] 30 ml PO Q4H PRN 09/24/18 [History] risperiDONE [Risperdal] 3 mg PO DAILY 09/24/18 [History] Cefdinir [Omnicef] 300 mg PO BID #6 capsule 09/28/18 [Rx] predniSONE [PredniSONE] 40 mg PO DAILY #10 tablet 09/28/18 [Rx] Allergies/Adverse Reactions: Allergy/AdvReac Type Severity Reaction Status Date / Time benztropine Allergy See Verified 08/10/18 21:52 Comments chlorpromazine Allergy See Verified 08/10/18 21:52 [From Thorazine] Comments codeine Allergy See Verified 08/10/18 21:52 Comments haloperidol [From Haldol] Allergy See Verified 08/10/18 21:52 Comments lorazepam Allergy See Verified 08/10/18 21:52 Comments Penicillins Allergy See Verified 08/10/18 21:52 Comments Sulfa (Sulfonamide Allergy See Verified 08/10/18 21:52 Antibiotics) Comments Date of admission: 09/25/18 10:39 Primary care physician: Remy Richardson MD Consults: 09/25/18 09:40 Consult to Nurse Navigator [CONS] Routine Comment: CHF 09/25/18 09:52 Consult to Physical Therapy [CONS] Routine Comment: Evaluate, develop and implement POC Reason for Consult: eval and treat Does patient have active BEDREST order?: No Is patient medically & hemodynamically stable?: Yes - Constitutional Vitals: Temp Pulse Resp BP Pulse Ox 97.7 F 68 18 168/60 99 09/28/18 11:03 09/28/18 11:03 09/28/18 11:03 09/28/18 11:03 09/28/18 11:03 General appearance: Present: cooperative, A&O X 3, pleasant, no acute distress, answers questions appropriately Exam: Gen: A, A, O x3 Chest: Diminished breath sounds B/L, moderate wheezing, No crackles, Rales + Heart: S1S2+ RRR No murmurs Abd: Soft, NT, BS +, No organomegaly Ext: 1+ edema, pulses are palpable, No calf tenderness Neuro : No acute focal neuro deficits noticed Skin: No rash. - Patient Status Disposition: Transfer SNF Condition: Good Overall status at discharge: patient is back to baseline - Discharge Instructions Follow Up With: Remy Richardson MD [Primary Care Provider] - 09/29/18 12:00 pm Soledad Irwin MD [Partnered Physician] - - Diet and Activity Activity: as per physical therapy, increase activity as tolerated, wear oxygen at all times, other (Use BiPAP at night time and as needed during day time) Diet: low salt diet
--- NOTE | 2018-09-28 11:37 | Physician Discharge Referral ---
ExtendedCare Referral Info Transfer To: f Provider in Charge after Transfer: PCP Institutional Level of Care: Skilled - Diagnosis (1) Acute on chronic respiratory failure with hypoxia and hypercapnia Status: Acute (2) Reactive airway disease Status: Acute (3) Hypoventilation associated with obesity syndrome Status: Acute (4) UTI (urinary tract infection) Status: Acute (5) Acute on chronic diastolic CHF (congestive heart failure) Status: Acute (6) Peripheral edema Status: Acute (7) DVT prophylaxis Status: Acute (8) Cognitive developmental delay Status: Chronic (9) Diabetes Status: Chronic (10) Morbid obesity with BMI of 60.0-69.9, adult Status: Acute (11) Anemia Status: Acute - Transfer Medications Prescriptions: Cefdinir [Omnicef] 300 mg PO BID #6 capsule predniSONE [PredniSONE] 40 mg PO DAILY #10 tablet Home Medications: Aripiprazole [Abilify] 20 mg PO DAILY 08/11/18 [History] Aspirin [Adult Aspirin Regimen] 81 mg PO HS 08/11/18 [History] Atorvastatin [Lipitor] 40 mg PO DAILY 08/11/18 [History] Divalproex Sodium 1,000 mg PO BID 08/11/18 [History] Dulaglutide [Trulicity] 0.75 mg SQ BAUTISTA 08/11/18 [History] Furosemide [Lasix] 40 mg PO BID 08/11/18 [History] Gabapentin [Neurontin] 300 mg PO BID 08/11/18 [History] Glucagon,Human Recombinant [Glucagon Emergency Kit] 1 mg SQ ONCE PRN 08/11/18 [History] Guaifenesin [Mucinex] 600 mg PO DAILY 08/11/18 [History] Ibuprofen [Ibu-200] 200 mg PO Q8H PRN 08/11/18 [History] Insulin ASPART [Novolog Flexpen] 17 unit SQ HS 08/11/18 [History] Insulin ASPART [Novolog Flexpen] 24 unit SQ TIDWM 08/11/18 [History] Lactase [Lactaid] 3,000 unit PO Q6H PRN 08/11/18 [History] Levothyroxine [Synthroid] 50 mcg PO 0730 08/11/18 [History] Loratadine [Allergy Relief] 10 mg PO DAILY 08/11/18 [History] Melatonin 6 mg PO HS 08/11/18 [History] Metformin HCl [Glucophage] 1,000 mg PO BID 08/11/18 [History] Multivitamin [One Daily Essential] 1 tab PO DAILY 08/11/18 [History] [place]-3/Dha/Epa/Fish Oil [[place] 3 500 Softgel] 2 cap PO HS 08/11/18 [History] Ranitidine HCl [Heartburn Relief] 150 mg PO BID 08/11/18 [History] Saline Nasal [place] [[place] Nasal [place]] 1 spray NS QID 08/11/18 [History] Topiramate [Topamax] 25 mg PO BIDWM 08/11/18 [History] Metoprolol [Lopressor] 12.5 mg PO BID #60 tablet 08/17/18 [Rx] Cholecalciferol (Vitamin D3) [Vitamin D3] 2,000 unit PO DAILY 09/24/18 [History] Clotrimazole/Betameth Dip CRM [Lotrisone CRM] 1 appl TP BID 09/24/18 [History] Hydrocortisone [Proctozone-Hc] 1 appl TP BID 09/24/18 [History] Insulin DETEMIR [Levemir Flextouch] 85 unit SQ Q12H 09/24/18 [History] Ipratropium/Albuterol Neb [Duoneb] 3 ml IH Q6HR PRN 09/24/18 [History] Lisinopril [Zestril] 40 mg PO DAILY 09/24/18 [History] [place] Carbonate 150 mg PO HS 09/24/18 [History] Mag Hydrox/Al Hydrox/Simeth [Maalox] 30 ml PO Q4H PRN 09/24/18 [History] risperiDONE [Risperdal] 3 mg PO DAILY 09/24/18 [History] Cefdinir [Omnicef] 300 mg PO BID #6 capsule 09/28/18 [Rx] predniSONE [PredniSONE] 40 mg PO DAILY #10 tablet 09/28/18 [Rx] Allergies/Adverse Reactions: Allergy/AdvReac Type Severity Reaction Status Date / Time benztropine Allergy See Verified 08/10/18 21:52 Comments chlorpromazine Allergy See Verified 08/10/18 21:52 [From Thorazine] Comments codeine Allergy See Verified 08/10/18 21:52 Comments haloperidol [From Haldol] Allergy See Verified 08/10/18 21:52 Comments lorazepam Allergy See Verified 08/10/18 21:52 Comments Penicillins Allergy See Verified 08/10/18 21:52 Comments Sulfa (Sulfonamide Allergy See Verified 08/10/18 21:52 Antibiotics) Comments - Respiratory Orders Smoking Cessation: Smoking cessation has been advised. For more information, call the [place] Tobacco Quit Line at 2-758-WWAY-NOW. CERTIFICATION: I certify that the transfer of the above named patient to an Extended Care Facility is necessary for the continuing treatment of the diagnosis listed. The above information is true and accurate reflection of patient's current condition. Confidential - Redisclosure prohibited without a patient's written consent.
--- NOTE | 2018-09-28 15:04 | Electrocardiograph Report ---
[facility] Test Date: 2018-09-24 Pat Name: Mirella Dill Department: [id number] Room: 3B65 Gender: F Store Warehouse Associate: : [id number] Requested By: [id number] Order Number: [id number] Reading MD: Raúl Donohue Measurements Intervals [place] Rate: 86 P: 69 HI: 181 QRS: 104 QRSD: 144 T: 43 QT: 402 QTc: 481 Interpretive Statements Sinus rhythm RBBB and LPFB Electronically Signed On 09-28-2018 15:02:36 EDT by Raúl Donohue
== END 2018-09-28 14:19 | DRG 291 ==
LOC: EMEROOARM 15:24 → 3BNU 15:24 → SUATTDRO 19:21 → 3BNU 20:09
PROVIDERS: ADMIT Internal Medicine; ATTEND Family Medicine

== ENCOUNTER 2018-10-16 10:20 | Inpatient (IN) ==
--- NOTE | 2018-10-16 12:47 | Internal Med History&Physical ---
Date of Encounter: 10/16/18 Time of Encounter: 12:36 Internal Medicine - H&P: HPI Chief complaint: Unresponsive Admitted From: Emergency Dept History of present illness: Mirella Dill is a 58 F w hx ?MRDD w appointed legal guardian, COPD and OHS c/b chronic hypercapneic resp failure on bipap qhs, HFpEF, HTN, HLD, DM2, GERD, morbid obesity, who was found unreponsive at [facility] and thus EMS called. They found her hypoxic at 78%; placed BiPAP on her with excellent recovery. She was recently admitted for the same thing, discharged from here on 09/28. According to EMS, pt was not wearing bipap at SNF. Upon my interview, patient somnolent but arousable, says she wants to relax and refuses to answer any of my questions. Does deny SOB and is comfortable on bipap. Per chart review, no fevers or chest pain. In the OSH ED, vitals T 98, HR 97, RR 18, BP 150/50s, satting 98+% on Bipap. Labs notable for Hb 8, MCV 101, HCO3 42, BUN 28, Cr 1.5, BG 160, BNP 150, Trop 0.26 then 0.43, ABG pH 7.21 improved to 7.31, ABG pCO2 100 improved to 80. Patient did have recovery on bipap, but due to elevated troponin without previous cardiac workup was sent here for further evaluation. Past medical, surgical, social, and family histories reviewed and updated as below. Unable to obtain addl family hx; pt has legal guardian and no living relatives per history. Past Med Surg Social Fam HX - Past Medical History Medical history: CHF, COPD, diabetes, GERD, hyperlipidemia, hypertension Psychiatric history: other - Social History Smoking Status: Never smoker Smokeless Tobacco Status: No Alcohol use: none Drug use: none Internal Medicine - H&P: Meds Aripiprazole [Abilify] 20 mg PO DAILY 08/11/18 [History] Aspirin [Adult Aspirin Regimen] 81 mg PO HS 08/11/18 [History] Atorvastatin [Lipitor] 40 mg PO DAILY 08/11/18 [History] Divalproex Sodium 1,000 mg PO BID 08/11/18 [History] Dulaglutide [Trulicity] 0.75 mg SQ BAUTISTA 08/11/18 [History] Furosemide [Lasix] 40 mg PO BID 08/11/18 [History] Gabapentin [Neurontin] 300 mg PO BID 08/11/18 [History] Glucagon,Human Recombinant [Glucagon Emergency Kit] 1 mg SQ ONCE PRN 08/11/18 [History] Guaifenesin [Mucinex] 600 mg PO DAILY 08/11/18 [History] Ibuprofen [Ibu-200] 200 mg PO Q8H PRN 08/11/18 [History] Insulin ASPART [Novolog Flexpen] 17 unit SQ HS 08/11/18 [History] Insulin ASPART [Novolog Flexpen] 24 unit SQ TIDWM 08/11/18 [History] Lactase [Lactaid] 3,000 unit PO Q6H PRN 08/11/18 [History] Levothyroxine [Synthroid] 50 mcg PO 0730 08/11/18 [History] Loratadine [Allergy Relief] 10 mg PO DAILY 08/11/18 [History] Melatonin 6 mg PO HS 08/11/18 [History] Metformin HCl [Glucophage] 1,000 mg PO BID 08/11/18 [History] Multivitamin [One Daily Essential] 1 tab PO DAILY 08/11/18 [History] [place]-3/Dha/Epa/Fish Oil [[place] 3 500 Softgel] 2 cap PO HS 08/11/18 [History] Ranitidine HCl [Heartburn Relief] 150 mg PO BID 08/11/18 [History] Saline Nasal [place] [[place] Nasal [place]] 1 spray NS QID 08/11/18 [History] Topiramate [Topamax] 25 mg PO BIDWM 08/11/18 [History] Metoprolol [Lopressor] 12.5 mg PO BID #60 tablet 08/17/18 [Rx] Cholecalciferol (Vitamin D3) [Vitamin D3] 2,000 unit PO DAILY 09/24/18 [History] Clotrimazole/Betameth Dip CRM [Lotrisone CRM] 1 appl TP BID 09/24/18 [History] Hydrocortisone [Proctozone-Hc] 1 appl TP BID 09/24/18 [History] Insulin DETEMIR [Levemir Flextouch] 85 unit SQ Q12H 09/24/18 [History] Ipratropium/Albuterol Neb [Duoneb] 3 ml IH Q6HR PRN 09/24/18 [History] Lisinopril [Zestril] 40 mg PO DAILY 09/24/18 [History] [place] Carbonate 150 mg PO HS 09/24/18 [History] Mag Hydrox/Al Hydrox/Simeth [Maalox] 30 ml PO Q4H PRN 09/24/18 [History] risperiDONE [Risperdal] 3 mg PO DAILY 09/24/18 [History] Allergy/AdvReac Type Severity Reaction Status Date / Time benztropine Allergy See Verified 08/10/18 21:52 Comments chlorpromazine Allergy See Verified 08/10/18 21:52 [From Thorazine] Comments codeine Allergy See Verified 08/10/18 21:52 Comments haloperidol [From Haldol] Allergy See Verified 08/10/18 21:52 Comments lorazepam Allergy See Verified 08/10/18 21:52 Comments Penicillins Allergy See Verified 08/10/18 21:52 Comments Sulfa (Sulfonamide Allergy See Verified 08/10/18 21:52 Antibiotics) Comments All Systems PM: A 10-system review of systems was performed and is negative for pertinent findings except as documented above in the HPI. - Constitutional Vitals: Vital Signs Pulse Resp BP Pulse Ox 10/16/18 12:26 92 20 116/91 99 10/16/18 12:20 23 100 Intake and Output 10/15/18 10/16/18 10/16/18 23:59 07:59 15:59 Other: Weight 124 kg Patient Weight 10/16/18 23:59 Weight 124 kg Exam: General: NAD, poor eye contact, obese and sleepy but in no respiratory distress wearing bipap Head: Atraumatic, normocephalic. Face symmetric Eyes: EOMI, sclerae anicteric ENT: Mucous membranes dry, unable to assess oral mucosa and dentition. Trachea midline. Thoracic: No visible chest wall deformities. No obvious wheezing or crackles heard in distant lung sounds while bipap going Cardio: Normal S1 and S2, regular rate and rhythm, no murmurs Abdomen: Soft, nontender, nondistended, obese Extremities: Warm, well perfused. DP pulses 2+ b/l. No clubbing, cyanosis. Does have edema b/l legs Skin: Intact. No obvious bruises or ulcers, does have chronic venous stasis changes b/l legs Neuro: Awake, oriented to person. Speech difficult to understand under bipap. Moving all extremities spontaneously. - Summary of Assessment and Plan Summary of Assessment and Plan: Mirella Dill is a 58 F w hx ?MRDD w appointed legal guardian, COPD and OHS c/b chronic hypercapneic resp failure on bipap qhs, HFpEF, HTN, HLD, DM2, GERD, morbid obesity, who p/w unresponsiveness, hypoxia, hypercapnea, and respiratory acidosis, consistent with acute on chronic hypercapneic respiratory failure. Acute on chronic hypercapneic respiratory failure: requiring Bipap, c/b respiratory acidosis and acute metabolic encephalopathy 2/2 CO2 narcosis, suspect 2/2 bipap noncompliance - supplemental PPV, wean as able during day (requires at night) - repeat ABG - walk test prior to discharge BARRY: likely 2/2 hypoxia, holding lisinopril 40, monitor MRDD and mood disorder: has legal guardian, home depakote 1k bid, gabapentin 300 bid, risperdal 3 daily, abilify 20 daily, topamax 25 bid, lithium 150 qhs COPD and OHS: home inhalers, bipap qhs HFpEF: lasix 40 bid HTN: metoprolol 12.5 bid, holding lisinopril 40 HLD: ASA, lipitor DM2: holding home POs, home levemir 85 bid (?!) plus SSI GERD: home h2b Morbid obesity: BMI 49 PPx: lovenox Tele: yes Activity: up w assist FEN: cardiac ADA 1.5L, no MIVF Lines: PIV Consults: Code: Full Dispo: obs for known bipap dependent hypercapneic resp failure noncompliance, anticipate 1-2 days, will return to SNF
[2018-10-16] MEDS ORDERED: Naloxone 0.4 MG/ML INJ IVP PRN (12:48)
[2018-10-16] MEDS ORDERED: Ondansetron 4 MG/2 ML VIAL IVP PRN (12:48)
[2018-10-16] MEDS ORDERED: Ibuprofen 200 MG TABLET PO PRN (14:23)
[2018-10-16] MEDS ORDERED: Ipratropium/Albuterol Neb 3 ML IH PRN (14:23)
[2018-10-16] MEDS ORDERED: Dextrose Gel 15 GM/37.5 ML TUBE PO PRN ×2 (14:30)
[2018-10-16] MEDS ORDERED: D5% in Water 1,000 ML IVC PRN (14:30)
[2018-10-16] MEDS ORDERED: INSULIN DETEMIR 85 UNIT SQ SCH (14:30)
[2018-10-16] MEDS ORDERED: *HR* Dextrose 50 % in Water (Syg) 50 ML SYRINGE IVP PRN (14:30)
[2018-10-16 14:44] LABS: ABG Base Excess 16 mEq/L (-2 to 3); ABG HCO3 45 mEq/L (21-27); ABG Oxygen Saturation 84 % (95-98); ABG PCO2 83 mmHg (35-45); ABG PH 7.34 pH Units (7.32-7.45); ABG PO2 56 mmHg (85-104); ABG TCO2 47 mEq/L (20-26)
[2018-10-16] MEDS: Insulin LISPRO 300 UNITS/3 ML VIAL SQ SCH ×2 (17:11→21:20)
[2018-10-16] MEDS: Furosemide 40 MG TABLET PO SCH (17:19)
[2018-10-16] MEDS: Topiramate 25 MG TABLET PO SCH (17:19)
[2018-10-16] MEDS ORDERED: Insulin DETEMIR 100 UNIT/ML X5UNITS SQ SCH (21:00)
[2018-10-16] MEDS: Divalproex (12 HR) 500 MG TABLET PO SCH (21:23)
[2018-10-16] MEDS: Aspirin Enteric Coated 81 MG Tablet PO SCH (21:23)
[2018-10-16] MEDS: Gabapentin 300 MG CAPSULE PO SCH (21:24)
[2018-10-16] MEDS: Melatonin 3 MG TABLET PO SCH (21:24)
[2018-10-16] MEDS: Lithium Oral Soln 300 MG/5 ML (8 mEq/5mL) UDC PO SCH (21:24)
[2018-10-17 03:52] LABS: Hematocrit 27.3 % (35.3-44.9); Mean Corpuscular HGB Conc 29.3 g/dL (31.6-35.5); Mean Corpuscular Volume 98.9 fL (83.0-100.0); Mean Platelet Volume 9.5 fL (9.4-12.4); Platelet Count 298 K/mcL (140-400); Red Blood Count 2.76 M/mcL (3.82-4.97); Red Cell Distribution Width 15.1 % (11.5-14.5); White Blood Count 9.3 K/mcL (4.3-11.1)
[2018-10-17 04:12] LABS: Magnesium 1.8 mg/dL (1.6-2.6); Potassium 4.3 mEq/L (3.5-5.1); Troponin I 0.43 ng/mL (< 0.04)
[2018-10-17 04:38] LABS: ABG Base Excess 18 mEq/L (-2 to 3); ABG HCO3 48 mEq/L (21-27); ABG Oxygen Saturation 93 % (95-98); ABG PCO2 94 mmHg (35-45); ABG PH 7.31 pH Units (7.32-7.45); ABG PO2 78 mmHg (85-104); ABG TCO2 > 50 mEq/L (20-26); Blood Gas Modality AVAPS; Blood Gas PEEP 25 cm H2O; Blood Gas Pressure Support 8 cm H2O; Blood Gas VT 550 cc
[2018-10-17] MEDS: *HR* Enoxaparin 40 MG/0.4 ML SYRINGE SQ SCH (04:56)
--- NOTE | 2018-10-17 06:50 | Event Note ---
Date of Encounter: 10/17/18 Time of Encounter: 04:35 Alerted by Teresa Katz RTT that the patient's ABG had a critical CO2 94 and a pH of 7.31. O2 78 and sat is 93%. Inquired if patient was on BiPAP which RTT confirmed at AVAPs 550 w/rate of 12. It is difficult to determine if patient is oriented d/t her baseline. RTT reported pt. was not in distress but would not leave the BiPAP alone and continues to pull at it. Sitter ordered. Nurse instructed of sitter order and to continue monitoring this pt. very closely and alert me immediately of any adverse changes or hypoxia/dyspnea as this pt. is FULL CODE and would require intubation if necessary.
[2018-10-17] MEDS: Insulin LISPRO 300 UNITS/3 ML VIAL SQ SCH ×4 (08:07→21:27)
--- NOTE | 2018-10-17 08:13 | Cardiology Consult Note ---
<Hannah Willis - Last Filed: 10/17/18 14:54> Date of Encounter: 10/17/18 Time of Encounter: 09:35 Assessment and Plan (1) Elevated troponin Current Visit: Yes Status: Acute Troponins x2 have been elevated but are trending downward -0.72>0.43 -electrocardiogram in ED showed sinus tachycardia without ST segment changes -patient is currently on BiPAP due to critical pCO2 of 94; cardiac catheterization contraindicated at this time -bedside echocardiogram ordered; result is pending -repeat troponin ordered Discussion w patient/family: The assessment and plan as outlined above was discussed with the patient and/or family members who expressed understanding and agreement. All questions were answered. Thank you for involving us in the care of your patient. Please call with any questions. History of Present Illness Consult date: 10/16/18 Requesting physician: Mario Rivera Consult reason: elevated trop, no previous ischemic eval other than recent TTE Chief complaint: hypoxia History of present illness: Ms. Dill is a 58 year old female presenting for elevated troponin and hypoxia in context of MRDD with legal guardian, chronic hypercapneic respiratory failure on BiPAP, HFpEF, HTN, HLD, DM2. Yesterday, she was found to be unresponsive at [facility] and she was brought to [facility] by EMS. EMS found her to have oxygen saturation of 78%. She recovered well on BiPAP. She was discharged from a previous hospitalization on 09/28 for the same complaint. She was not wearing BiPAP at the ECF when EMS arrived. ECG in ED showed sinus tachycardia and did not show ST segment changes. Troponins x2 have been 0.72 > 0.43. ABG pCO2 improved to 80 and patient began to recover on BiPAP but because of elevated troponins with no previous cardiac workup, she was sent to [facility]. On exam today, patient was easily agitated and reported that she did not remember anything that happened yesterday. She would not characterize how she was feeling today and was somewhat fixated on wanting to eat and wanting "pop." Nurse in room asked whether it would be possible to give patient her home medications with applesauce or pudding. Discussed patient with hospitalist who OK'd the medication administration and diabetic diet. Past Med Surg Social Fam HX - Past Medical History Medical history: CHF, COPD, diabetes, GERD, hyperlipidemia, hypertension Psychiatric history: other - Social History Smoking Status: Never smoker Smokeless Tobacco Status: No Alcohol use: none Drug use: none Medications and Allergies Aripiprazole [Abilify] 20 mg PO QAM 08/11/18 [History] Aspirin [Adult Aspirin Regimen] 81 mg PO HS 08/11/18 [History] Atorvastatin [Lipitor] 40 mg PO DAILY 08/11/18 [History] Divalproex Sodium 1,000 mg PO BID 08/11/18 [History] Dulaglutide [Trulicity] 0.75 mg SQ BAUTISTA 08/11/18 [History] Furosemide [Lasix] 40 mg PO BID 08/11/18 [History] Gabapentin [Neurontin] 300 mg PO BID 08/11/18 [History] Ibuprofen [Ibu-200] 200 mg PO Q8H PRN 08/11/18 [History] Lactase [Lactaid] 3,000 unit PO Q6H PRN 08/11/18 [History] Levothyroxine [Synthroid] 50 mcg PO 0600 08/11/18 [History] Loratadine [Allergy Relief] 10 mg PO DAILY 08/11/18 [History] Melatonin 6 mg PO HS 08/11/18 [History] Metformin HCl [Glucophage] 1,000 mg PO BID 08/11/18 [History] Multivitamin [One Daily Essential] 1 tab PO DAILY 08/11/18 [History] [place]-3/Dha/Epa/Fish Oil [[place] 3 500 Softgel] 2 cap PO HS 08/11/18 [History] Ranitidine HCl [Heartburn Relief] 150 mg PO BID 08/11/18 [History] Topiramate [Topamax] 25 mg PO BIDWM 08/11/18 [History] Metoprolol [Lopressor] 12.5 mg PO BID #60 tablet 08/17/18 [Rx] Cholecalciferol (Vitamin D3) [Vitamin D3] 2,000 unit PO DAILY 09/24/18 [History] Ipratropium/Albuterol Neb [Duoneb] 3 ml IH Q6HR PRN 09/24/18 [History] Lisinopril [Zestril] 40 mg PO DAILY 09/24/18 [History] [place] Carbonate 150 mg PO HS 09/24/18 [History] Mag Hydrox/Al Hydrox/Simeth [Maalox] 30 ml PO Q4H PRN 09/24/18 [History] risperiDONE [Risperdal] 3 mg PO QAM 09/24/18 [History] Guaifenesin [Mucus Relief] 400 mg PO DAILY 10/17/18 [History] HydrOXYzine Pamoate [Vistaril] 50 mg PO HS 10/17/18 [History] Insulin Glargine,Hum.rec.anlog [Basaglar Kwikpen U-100] 85 unit SQ 0600,1800 10/17/18 [History] Insulin LISPRO [Humalog Kwikpen U-100] 17 unit SQ HS 10/17/18 [History] Insulin LISPRO [Humalog Kwikpen U-100] 24 unit SQ TID 10/17/18 [History] risperiDONE [Risperidone] 1 mg PO HS 10/17/18 [History] Allergy/AdvReac Type Severity Reaction Status Date / Time benztropine Allergy See Verified 08/10/18 21:52 Comments chlorpromazine Allergy See Verified 08/10/18 21:52 [From Thorazine] Comments codeine Allergy See Verified 08/10/18 21:52 Comments haloperidol [From Haldol] Allergy See Verified 08/10/18 21:52 Comments lorazepam Allergy See Verified 08/10/18 21:52 Comments Penicillins Allergy See Verified 08/10/18 21:52 Comments Sulfa (Sulfonamide Allergy See Verified 08/10/18 21:52 Antibiotics) Comments ROS unobtainable: other (patient uncooperative) All Systems Review: The remainder of the systems were reviewed and are negative Physical Examination Vital Signs, Last 4 Hours Pulse Resp BP Pulse Ox 10/17/18 07:25 79 19 157/62 98 Other: GENERAL: easily agitated, on BiPAP HENT: atraumatic, normocephalic EYES: anicteric, clear sclerae, pupils equal and reactive to light NECK: auscultation of carotids not performed due to patient need for BiPAP, carotid pulses 2+/4 CV: regular rate and rhythm, no murmurs RESPIRATORY: clear to auscultation bilaterally, no wheezes, rhonchi, or rales GI: soft, nontender, obese abdomen. Normal bowel sounds EXTREMITIES: left lower extremity is tender to palpation. Bilateral nonpitting edema. Skin flaking on anterior shins. Peripheral pulses 2+/4. Capillary refill <2 sec Results 10/17/18 03:29 10/17/18 03:29 Lab Results 10/16/18 10/17/18 10/17/18 15:41 03:29 03:29 WBC 9.3 Hgb 8.0 L Hct 27.3 L Plt Count 298 Sodium 143 Potassium 4.3 Chloride 96 L Carbon Dioxide 43 H* BUN 26 H Creatinine 1.15 Glucose 101 Calcium 10.0 Magnesium 1.8 Troponin I 0.72 H* 0.43 H* B-Natriuretic Peptide 10/17/18 03:29 WBC Hgb Hct Plt Count Sodium Potassium Chloride Carbon Dioxide BUN Creatinine Glucose Calcium Magnesium Troponin I B-Natriuretic Peptide 87 - Imaging and Cardiology Chest Xray: report reviewed Echo: pending - EKG Interpretation EKG results cardiology: sinus rhythm Consult Discharge Plan - Plan Referrals: NONE,PCP [Primary Care Provider] - <Bartolome Mckenzie - Last Filed: 10/17/18 15:19> Date of Encounter: 10/17/18 - Attending Attestation I have personally performed a face to face evaluation on this patient. I have reviewed and agree with the care plan. History and Exam by me shows: 58-year-old female with MR presents with legal guardian after significant hypercapnia and respiratory distress. Patient seems much improved denies any chest pain however is a poor/unreliable historian. Patient noted to have elevated troponins with a peak of .74, likely would benefit from her stratification in regards to her LHC. Risks benefits and alternatives to be discussed with legal guardian to pursue LHC if okay and when patient stable from respiratory insufficiency. Previous echo on presentation was not readable as patient would not sit still. Likely this may be a risk for her if she is to have an LHC. We will address with primary team if this becomes a high probability Assessment and Plan Discussion w patient/family: The assessment and plan as outlined above was discussed with the patient and/or family members who expressed understanding and agreement. All questions were answered. Thank you for involving us in the care of your patient. Please call with any questions. History of Present Illness History of present illness: Ms. Dill is a 58 year old female All Systems Review: The remainder of the systems were reviewed and are negative Physical Examination Vital Signs, Last 4 Hours Temp Pulse BP Pulse Ox 10/17/18 11:24 98.3 F 88 133/63 98 Results 10/17/18 03:29 10/17/18 03:29 Lab Results 10/16/18 10/17/18 10/17/18 15:41 03:29 03:29 WBC 9.3 Hgb 8.0 L Hct 27.3 L Plt Count 298 Sodium 143 Potassium 4.3 Chloride 96 L Carbon Dioxide 43 H* BUN 26 H Creatinine 1.15 Glucose 101 Calcium 10.0 Magnesium 1.8 Troponin I 0.72 H* 0.43 H* B-Natriuretic Peptide 10/17/18 03:29 WBC Hgb Hct Plt Count Sodium Potassium Chloride Carbon Dioxide BUN Creatinine Glucose Calcium Magnesium Troponin I B-Natriuretic Peptide 87
--- NOTE | 2018-10-17 08:30 | Internal Med Progress Note ---
Hospitalist Progress Note - Encounter Date of Encounter: 10/17/18 Time of Encounter: 08:30 - Subjective Interval History: No acute events overnight - Exam Vitals: Temp Pulse Resp BP Pulse Ox 98.8 F 79 19 157/62 98 10/16/18 19:33 10/17/18 07:25 10/17/18 07:25 10/17/18 07:25 10/17/18 07:25 Exam: General: NAD, poor eye contact, obese and sleepy but in no respiratory distress wearing bipap Head: Atraumatic, normocephalic. Face symmetric Eyes: EOMI, sclerae anicteric ENT: Mucous membranes dry, unable to assess oral mucosa and dentition. Trachea midline. Thoracic: No visible chest wall deformities. No obvious wheezing or crackles heard in distant lung sounds while bipap going Cardio: Normal S1 and S2, regular rate and rhythm, no murmurs Abdomen: Soft, nontender, nondistended, obese Extremities: Warm, well perfused. DP pulses 2+ b/l. No clubbing, cyanosis. Does have edema b/l legs Skin: Intact. No obvious bruises or ulcers, does have chronic venous stasis changes b/l legs Neuro: Awake, oriented to person. Speech difficult to understand under bipap. Moving all extremities spontaneously. - Assessment and Plan (1) Acute on chronic respiratory failure with hypoxia and hypercapnia Current Visit: Yes Status: Acute Assessment and Plan: Pt comes in with lethargy and unresponsiveness with severe CO2 retention likely a combination of SUNDAY, obesity hypoventilation syndrome and COPD exacerbationand non compliance with BIPAP Improved on BIPAP. Started on nebs, steroids and antibiotics. CO2 on ABG was 94 this am Continue BIPAP. Repeat ABG in am (2) Congestive heart failure Current Visit: Yes Status: Acute Assessment and Plan: Pt has chronic diastolic CHF with no acute exacerbation Continue po lasix (3) Diabetes Current Visit: Yes Status: Acute Assessment and Plan: Continue levemir and sliding scale. Monitor fingersticks Pt is on 85units of levemir BID which appears to be excessive. Will cut dose down to 40 units and monitor sugars (4) HTN (hypertension) Current Visit: Yes Status: Chronic Assessment and Plan: Stable. resume home meds (5) Hypoventilation associated with obesity syndrome Current Visit: Yes Status: Acute Assessment and Plan: See #1 (6) Morbid obesity with BMI of 60.0-69.9, adult Current Visit: Yes Status: Acute Assessment and Plan: Diet and exercise (7) Elevated troponin Current Visit: Yes Status: Acute Assessment and Plan: Trops elevated at 0.7 but trended down to 0.43 Obtain 2D echo. Cardiology on board. cardiac cath not planned at this time (8) DVT prophylaxis Current Visit: Yes Status: Acute Assessment and Plan: Continue lovenox - Time Spent with Patient Total time spent is greater than 50% in coordination of care (as documented) at patient's floor/unit and/or counseling patient: Internal Medicine: Result - Labs CBC & Chem 7: 10/17/18 03:29 10/17/18 03:29 Labs: Short CBC 10/17/18 Range/Units 03:29 WBC 9.3 (4.3-11.1) K/mcL Hgb 8.0 L (11.5-15.4) g/dL Hct 27.3 L (35.3-44.9) % Plt Count 298 (140-400) K/mcL BMP 10/17/18 03:29 Sodium 143 Potassium 4.3 Chloride 96 L Carbon Dioxide 43 H* BUN 26 H Creatinine 1.15 Glucose 101 Calcium 10.0 Cardiac Enzymes 10/16/18 10/17/18 Range/Units 15:41 03:29 Troponin I 0.72 H* 0.43 H* (< 0.04) ng/mL - ABG Interpretation ABG results: ABG ABG pH 7.31 pH Units (7.32-7.45) L 10/17/18 04:30 ABG pCO2 94 mmHg (35-45) H* 10/17/18 04:30 ABG pO2 78 mmHg (85-104) L 10/17/18 04:30 ABG O2 Saturation 93 % (95-98) L 10/17/18 04:30 Consult Discharge Plan - Plan Referrals: NONE,PCP [Primary Care Provider] - (2) Congestive heart failure Qualifiers: Qualified Code(s): I50.9 - Heart failure, unspecified (4) HTN (hypertension) Qualifiers: Hypertension type: essential hypertension Qualified Code(s): I10 - Essential (primary) hypertension
[2018-10-17] MEDS ORDERED: Azithromycin 500 MG in 0.9 % Sodium Chloride 250 ML IVPB SCH (10:00)
[2018-10-17] MEDS ORDERED: cefTRIAXone 1,000 MG in Water for inj. (sterile) 10 ML IVP SCH (10:00)
[2018-10-17] MEDS: ARIPiprazole 10 MG TABLET PO SCH (10:32)
[2018-10-17] MEDS: Topiramate 25 MG TABLET PO SCH ×2 (10:33→16:06)
[2018-10-17] MEDS: Gabapentin 300 MG CAPSULE PO SCH ×2 (10:33→21:26)
[2018-10-17] MEDS: Furosemide 40 MG TABLET PO SCH ×2 (10:33→16:06)
[2018-10-17] MEDS: Divalproex (12 HR) 500 MG TABLET PO SCH ×2 (10:33→21:34)
[2018-10-17] MEDS: RisperiDAL 3 MG TABLET PO SCH (10:33)
[2018-10-17] MEDS: Acetaminophen 325 MG TABLET PO PRN (10:52)
[2018-10-17] MEDS: MethylPREDNISolone 40 MG/ML VIAL IVP SCH ×2 (10:55→16:06)
[2018-10-17] MEDS: Budesonide/Formoterol 160/4.5 1 PUFF INH IH SCH ×2 (11:14→20:17)
[2018-10-17] MEDS: Ipratropium/Albuterol Neb 3 ML IH SCH ×3 (11:15→20:17)
[2018-10-17] MEDS ORDERED: Insulin DETEMIR 100 UNIT/ML X5UNITS SQ SCH (21:00)
[2018-10-17] MEDS: Lithium Oral Soln 300 MG/5 ML (8 mEq/5mL) UDC PO SCH (21:26)
[2018-10-17] MEDS: Melatonin 3 MG TABLET PO SCH (21:26)
[2018-10-17] MEDS: Aspirin Enteric Coated 81 MG Tablet PO SCH (21:26)
[2018-10-18] MEDS: Ipratropium/Albuterol Neb 3 ML IH SCH ×7 (00:04→23:31)
[2018-10-18] MEDS: MethylPREDNISolone 40 MG/ML VIAL IVP SCH ×3 (00:37→17:05)
[2018-10-18] MEDS: Acetaminophen 325 MG TABLET PO PRN ×2 (03:21→11:23)
[2018-10-18] MEDS: Furosemide 40 MG TABLET PO SCH ×2 (04:28→17:08)
[2018-10-18 04:44] LABS: ABG Base Excess 15 mEq/L (-2 to 3); ABG HCO3 44 mEq/L (21-27); ABG Oxygen Saturation 95 % (95-98); ABG PCO2 78 mmHg (35-45); ABG PH 7.35 pH Units (7.32-7.45); ABG PO2 81 mmHg (85-104); ABG TCO2 46 mEq/L (20-26); Blood Gas Modality NIV; Blood Gas VT 550 cc
[2018-10-18 05:03] LABS: Basophils % 0.3 %; Hematocrit 29.3 % (35.3-44.9); Hemoglobin 8.8 g/dL (11.5-15.4); Immature Granulocytes % 4.2 % (0-4); Lymphocytes # 0.5 K/mcL (0.6-4.6); Lymphocytes % 6.5 %; Mean Corpuscular Hemoglobin 28.3 pg (28.0-33.3); Mean Corpuscular Volume 94.2 fL (83.0-100.0); Mean Platelet Volume 9.3 fL (9.4-12.4); Monocytes # 0.1 K/mcL (0.0-1.3); Monocytes % 1.7 %; Neutrophils # 6.8 K/mcL (1.6-8.9); Platelet Count 347 K/mcL (140-400); Red Blood Count 3.11 M/mcL (3.82-4.97); Red Cell Distribution Width 14.5 % (11.5-14.5); Segmented Neutrophils % 87.3 %; White Blood Count 7.8 K/mcL (4.3-11.1)
[2018-10-18 05:52] LABS: Calcium 10.2 mg/dL (8.6-10.3); Magnesium 1.9 mg/dL (1.6-2.6); Phosphorous 4.1 mg/dL (2.7-4.5); Potassium 5.4 mEq/L (3.5-5.1)
[2018-10-18] MEDS: *HR* Enoxaparin 40 MG/0.4 ML SYRINGE SQ SCH (06:43)
[2018-10-18] MEDS: Budesonide/Formoterol 160/4.5 1 PUFF INH IH SCH ×2 (07:46→19:41)
[2018-10-18] MEDS: Insulin LISPRO 300 UNITS/3 ML VIAL SQ SCH ×5 (08:58→20:21)
[2018-10-18] MEDS: ARIPiprazole 10 MG TABLET PO SCH (08:59)
[2018-10-18] MEDS: Insulin DETEMIR 100 UNIT/ML X5UNITS SQ SCH ×2 (08:59→20:21)
[2018-10-18] MEDS: levoFLOXacin 750 MG/150 ML 750 MG/150 ML BAG IVPB SCH (08:59)
[2018-10-18] MEDS: RisperiDAL 3 MG TABLET PO SCH (09:00)
[2018-10-18] MEDS: Gabapentin 300 MG CAPSULE PO SCH ×2 (09:00→20:20)
[2018-10-18] MEDS: Topiramate 25 MG TABLET PO SCH ×2 (09:00→17:08)
[2018-10-18] MEDS: Divalproex (12 HR) 500 MG TABLET PO SCH ×2 (09:02→20:19)
--- NOTE | 2018-10-18 09:18 | Cardiology Progress Note ---
<Hannah Willis - Last Filed: 10/18/18 10:54> Date of Encounter: 10/18/18 Assessment and Plan (1) Elevated troponin Current Visit: Yes Status: Acute Troponins x3 have been elevated but are trending downward -0.72 > 0.43 > 0.25 -electrocardiogram in ED showed sinus tachycardia without ST segment changes -patient is currently on BiPAP due to critical pCO2 of 94; cardiac catheterization contraindicated at this time -bedside echocardiogram was performed yesterday; study was incomplete due to patient refusal to cooperate -plan to consult patient's court-appointed guardian regarding possibility of cardiac catheterization Discussion w patient/family: The assessment and plan as outlined above was discussed with the patient and/or family members who expressed understanding and agreement. All questions were answered. Thank you for involving us in the care of your patient. Please call with any questions. Objective Vital Signs, Last 4 Hours Temp Pulse Resp BP Pulse Ox 10/18/18 07:51 18 98 10/18/18 07:23 98.5 F 70 165/60 100 Results 10/18/18 04:41 10/18/18 04:41 Lab Results 10/17/18 10/18/18 10/18/18 15:00 04:41 04:41 WBC 7.8 Hgb 8.8 L Hct 29.3 L Plt Count 347 Sodium 136 Potassium 5.4 H Chloride 91 L Carbon Dioxide 40 H* BUN 29 H Creatinine 1.24 H Glucose 410 H Calcium 10.2 Magnesium 1.9 Troponin I 0.25 H* Consult Discharge Plan - Plan Referrals: NONE,PCP [Primary Care Provider] - <Bartolome Mckenzie - Last Filed: 10/18/18 11:15> Date of Encounter: 10/18/18 Time of Encounter: 11:14 Assessment and Plan (1) Elevated troponin Current Visit: Yes Status: Acute Troponins x3 have been elevated but are trending downward -0.72 > 0.43 > 0.25 -electrocardiogram in ED showed sinus tachycardia without ST segment changes -patient is currently on BiPAP due to critical pCO2 of 94; cardiac catheterization contraindicated at this time -bedside echocardiogram was performed yesterday; study was incomplete due to patient refusal to cooperate -plan to consult patient's court-appointed guardian regarding possibility of cardiac catheterization I examined this patient and my medical decision-making was reviewed with the Resident Physician. I agree with the documented findings, disposition and treatment plan as described except to the extent set forth below. Elevated troponins with hx of multiple CRF's in setting of poor historian. Will proceed with [facility] when approved by guardian. Discussion w patient/family: The assessment and plan as outlined above was discussed with the patient and/or family members who expressed understanding and agreement. All questions were answered. Thank you for involving us in the care of your patient. Please call with any questions. Objective Vital Signs, Last 4 Hours Temp Pulse Resp BP Pulse Ox 10/18/18 07:51 18 98 10/18/18 07:23 98.5 F 70 165/60 100 Results 10/18/18 04:41 10/18/18 04:41 Lab Results 10/17/18 10/18/18 10/18/18 15:00 04:41 04:41 WBC 7.8 Hgb 8.8 L Hct 29.3 L Plt Count 347 Sodium 136 Potassium 5.4 H Chloride 91 L Carbon Dioxide 40 H* BUN 29 H Creatinine 1.24 H Glucose 410 H Calcium 10.2 Magnesium 1.9 Troponin I 0.25 H*
--- NOTE | 2018-10-18 11:56 | Event Note ---
<Hannah Willis - Last Filed: 10/18/18 12:01> Date of Encounter: 10/18/18 Time of Encounter: 11:49 Spoke with Shanta Whitman who is the on-duty guardian for the patient. Phone number is [phone] with 24-hour line at . We discussed level of sedation necessary for cardiac catheterization, risks of procedure vs benefits. This information was discussed by guardian with nurse present in her office. Verbal consent was given. They would like for our office to call them when a date has been set for the procedure. Verbal consent was given separately to myself and nurse and both of us signed consent form. Consent form is on file on [facility]. <Bartolome Mckenzie - Last Filed: 10/18/18 15:02> Date of Encounter: 10/18/18 I examined this patient and my medical decision-making was reviewed with the Resident Physician. I agree with the documented findings, disposition and treatment plan as described except to the extent set forth below. Patient was unable to comply with instructions during echocardiogram, likely will need sedation for upcoming LHC if not may even consider propofol/anesthesia
[2018-10-18] MEDS ORDERED: Insulin LISPRO 300 UNITS/3 ML VIAL SQ SCH (12:00)
--- NOTE | 2018-10-18 16:18 | Internal Med Progress Note ---
Hospitalist Progress Note - Encounter Date of Encounter: 10/18/18 Time of Encounter: 16:15 - Subjective Interval History: I have seen and evaluated the patient at bedside. patient reported her breathing is better today, denies chest pain, nausea, vomiting or abdominal pain. - Exam Vitals: Temp Pulse Resp BP Pulse Ox 98.3 F 82 18 161/56 96 10/18/18 15:44 10/18/18 15:44 10/18/18 11:46 10/18/18 15:44 10/18/18 15:44 Exam: Vitals: Reviewed General: Morbidly obese, Alert and oriented x3. In no distress Cardiovascular: RRR, normal S1 & S2, no rubs, murmurs or gallops. Lungs: CTA b/l, no wheezes or crackles. Abdomen: Obese, soft, non-tender, no rigidity. Extremities: No deformity, no edema or tenderness, no joint swelling or clubbing. Neurological: No focal neurological abnormalities Rest of the physical exam is non contributory - Assessment and Plan (1) HTN (hypertension) Current Visit: Yes Status: Chronic (2) DVT prophylaxis Current Visit: Yes Status: Acute (3) Congestive heart failure Current Visit: Yes Status: Chronic (4) Acute on chronic respiratory failure with hypoxia and hypercapnia Current Visit: Yes Status: Acute (5) Hypoventilation associated with obesity syndrome Current Visit: Yes Status: Acute (6) Morbid obesity with BMI of 60.0-69.9, adult Current Visit: Yes Status: Acute (7) Elevated troponin Current Visit: Yes Status: Acute (8) Diabetes Current Visit: Yes Status: Chronic - Summary of Assessment and Plan Summary of Assessment and Plan: 58 F w hx MRDD w appointed legal guardian, COPD and OHS c/b chronic hypercapneic resp failure on bipap qhs, HFpEF, HTN, HLD, DM2, GERD, morbid obesity, who was found unreponsive at ECF and thus EMS called. They found her hypoxic at 78%; placed BiPAP on her with excellent recovery. Assessment: 1. Elevated trops 2. Acute on chronic Hypercapnic respiratory failure 3. Obesity hypoventilation syndrome 4. Morbidly obese 5. Uncontrolled DM 6. Hypernatremia 7. VTE prophylaxis 8. HFpEF 9. hypothyroidism Plan: - scheduled for [facility] - cardiology recommendations appreciated - c/w aspirin 81mg/Po daily - on furosemide 40mg/IV BID. - kayaxalte 30gm/PO once. will repeat BMP at 5pm today. - fluids restriction to 1.5 litters a day, plus daily weight - on bronchodilators Q4RT Scheduled. on symbicort. - decreased methyl-solumedrol to 40mg/IV BID - switch azithromycin and ceftriaxone to levofloxacin 750mg/IV daily. - blood sugar is sub-optimally controlled. levemir increased to 30 units BID, lispro increased to 10 units ac. lispro high dose sliding scale. - c/w levothyroxine - on enoxaparin subq for dvt prophylaxis - c/w home dose of mood stabilizing medications Disposition: - Patient to remain in the hospital due to acute on chronic hypercapnic respiratory failure. Elevated troponin, scheduled for left heart catheter. - Time Spent with Patient Total time spent is greater than 50% in coordination of care (as documented) at patient's floor/unit and/or counseling patient: Greater than 35 minutes (45) Plan of Care Discussed with: nurse Internal Medicine: Result - Labs CBC & Chem 7: 10/18/18 04:41 10/18/18 04:41 Labs: Short CBC 10/18/18 Range/Units 04:41 WBC 7.8 (4.3-11.1) K/mcL Hgb 8.8 L (11.5-15.4) g/dL Hct 29.3 L (35.3-44.9) % Plt Count 347 (140-400) K/mcL Neutrophils # 6.8 (1.6-8.9) K/mcL BMP 10/18/18 04:41 Sodium 136 Potassium 5.4 H Chloride 91 L Carbon Dioxide 40 H* BUN 29 H Creatinine 1.24 H Glucose 410 H Calcium 10.2 - ABG Interpretation ABG results: ABG ABG pH 7.35 pH Units (7.32-7.45) 10/18/18 04:39 ABG pCO2 78 mmHg (35-45) H* 10/18/18 04:39 ABG pO2 81 mmHg (85-104) L 10/18/18 04:39 ABG O2 Saturation 95 % (95-98) 10/18/18 04:39 - Impressions Impressions Echocardiogram 10/17/18 09:45 Impressions: Non-interpretable study, patient refused to complete study. Unable to assess LV or RV function. Recommend complete study when patient agrees. Findings: Study Quality * Incomplete study, only PLAX and PSAX views, patient refused to complete study. ECG Findings * Normal sinus rhythm. Left Ventricle * Unable to assess LV function. Right Ventricle * Unable to assess RV function. Consult Discharge Plan - Plan Referrals: NONE,PCP [Primary Care Provider] - (1) HTN (hypertension) Qualifiers: Hypertension type: essential hypertension Qualified Code(s): I10 - Essential (primary) hypertension (3) Congestive heart failure Qualifiers: Heart failure type: unspecified Heart failure chronicity: chronic Qualified Code(s): I50.9 - Heart failure, unspecified (8) Diabetes Qualifiers: Diabetes mellitus type: type 2 Diabetes mellitus correction insulin use: unspecified buttermaker continuous churn insulin use status Diabetes mellitus complication status: with other specified complication Qualified Code(s): E11.69 - Type 2 diabetes mellitus with other specified complication
[2018-10-18 17:49] LABS: BUN/Creatinine Ratio 25 (6-26); Blood Urea Nitrogen 27 mg/dL (6-20); Calcium 10.3 mg/dL (8.6-10.3); Carbon Dioxide 42 mEq/L (23-29); Chloride 89 mEq/L (98-107); Glucose 336 mg/dL (70-105); Osmolality,Calculated 296 (280-300); Potassium 4.6 mEq/L (3.5-5.1); Sodium 134 mEq/L (136-145); eGFR For African Americans > 60 (> 60); eGFR For Non-African Americans 51 (> 60)
[2018-10-18] MEDS: Aspirin Enteric Coated 81 MG Tablet PO SCH (20:19)
[2018-10-18] MEDS: Melatonin 3 MG TABLET PO SCH (20:20)
[2018-10-18] MEDS: Lithium Oral Soln 300 MG/5 ML (8 mEq/5mL) UDC PO SCH (20:22)
[2018-10-19] MEDS: Ipratropium/Albuterol Neb 3 ML IH SCH ×5 (03:53→20:52)
[2018-10-19 04:35] LABS: Basophils % 0.2 %; Eosinophils # 0.1 K/mcL (0.0-0.6); Eosinophils % 1.4 %; Hematocrit 26.6 % (35.3-44.9); Hemoglobin 7.9 g/dL (11.5-15.4); Immature Granulocytes % 2.5 % (0-4); Lymphocytes # 2.8 K/mcL (0.6-4.6); Lymphocytes % 33.3 %; Mean Corpuscular HGB Conc 29.7 g/dL (31.6-35.5); Mean Corpuscular Hemoglobin 28.5 pg (28.0-33.3); Mean Platelet Volume 9.1 fL (9.4-12.4); Monocytes # 0.5 K/mcL (0.0-1.3); Monocytes % 5.9 %; Neutrophils # 4.9 K/mcL (1.6-8.9); Platelet Count 342 K/mcL (140-400); Red Blood Count 2.77 M/mcL (3.82-4.97); Red Cell Distribution Width 14.6 % (11.5-14.5); Segmented Neutrophils % 56.7 %; White Blood Count 8.5 K/mcL (4.3-11.1)
[2018-10-19 04:52] LABS: BUN/Creatinine Ratio 31 (6-26); Blood Urea Nitrogen 30 mg/dL (6-20); Calcium 10.2 mg/dL (8.6-10.3); Carbon Dioxide 41 mEq/L (23-29); Chloride 92 mEq/L (98-107); Glucose 194 mg/dL (70-105); Magnesium 1.8 mg/dL (1.6-2.6); Osmolality,Calculated 295 (280-300); Phosphorous 3.7 mg/dL (2.7-4.5); Potassium 4.6 mEq/L (3.5-5.1); Sodium 137 mEq/L (136-145); eGFR For African Americans > 60 (> 60); eGFR For Non-African Americans 59 (> 60)
[2018-10-19] MEDS: MethylPREDNISolone 40 MG/ML VIAL IVP SCH (06:30)
[2018-10-19] MEDS: *HR* Enoxaparin 40 MG/0.4 ML SYRINGE SQ SCH (06:31)
[2018-10-19] MEDS: Budesonide/Formoterol 160/4.5 1 PUFF INH IH SCH ×2 (07:25→20:52)
[2018-10-19] MEDS: RisperiDAL 3 MG TABLET PO SCH (08:01)
[2018-10-19] MEDS: Gabapentin 300 MG CAPSULE PO SCH ×2 (08:01→21:29)
[2018-10-19] MEDS: Divalproex (12 HR) 500 MG TABLET PO SCH ×2 (08:01→21:30)
[2018-10-19] MEDS: ARIPiprazole 10 MG TABLET PO SCH (08:05)
[2018-10-19] MEDS: levoFLOXacin 750 MG/150 ML 750 MG/150 ML BAG IVPB SCH (08:05)
[2018-10-19] MEDS: Topiramate 25 MG TABLET PO SCH ×2 (08:05→16:01)
[2018-10-19] MEDS: Insulin DETEMIR 100 UNIT/ML X5UNITS SQ SCH (08:21)
[2018-10-19] MEDS: Furosemide 40 MG TABLET PO SCH ×2 (08:21→16:01)
[2018-10-19] MEDS: Insulin LISPRO 300 UNITS/3 ML VIAL SQ SCH ×6 (08:22→21:32)
--- NOTE | 2018-10-19 09:57 | Cardiology Progress Note ---
<Hannah Willis - Last Filed: 10/19/18 11:11> Date of Encounter: 10/19/18 Time of Encounter: 09:54 Assessment and Plan (1) Elevated troponin Current Visit: Yes Status: Acute Troponins x3 have been elevated but are trending downward -0.72 > 0.43 > 0.25 -electrocardiogram in ED showed sinus tachycardia without ST segment changes -echocardiogram yesterday was unobtainable due to patient lack of cooperation -patient is now improved from a respiratory standpoint and is on 3 L NC and tolerating well -verbal approval for cardiac catheterization has been obtained from court- appointed guardian but procedure has not yet been scheduled -will need to notify guardian when date of catheterization is known -we would like clearance from GI for cardiac catheterization due to patient's consistently decreased hemoglobin level without known cause Discussion w patient/family: The assessment and plan as outlined above was discussed with the patient and/or family members who expressed understanding and agreement. All questions were answered. Thank you for involving us in the care of your patient. Please call with any questions. Subjective Principal diagnosis: elevated troponins Interval history: Today, patient appeared more awake and cooperative, though still had moments of agitation. She reports feeling better. She initially was agitated about having a test but then asked if she needed it. When told it would be a good thing to do, she said she guessed she could have it. Objective Vital Signs, Last 4 Hours Temp Pulse Resp BP Pulse Ox 10/19/18 07:30 98.2 F 74 17 152/71 76 Other: GENERAL: patient is still occasionally agitated but able to calm self, awake, answers simple questions EYES: anicteric, clear sclerae, pupils equal and reactive to light bilaterally HENT: normocephalic, atraumaticmoist mucosa, edentulous NECK: normal carotid pulses CV: regular rate and rhythm, no murmurs RESPIRATORY: clear to auscultation bilaterally, no wheezes, rhonchi, or rales GI: soft, obese, nondistended. Possibility of mild tenderness though patient level of cooperation complicated exam. Normal bowel sounds heard. EXTREMITIES: bilateral lower extremities remain tender to palpation and edematous, peripheral pulses 2+/4, acyanotic Results 10/19/18 04:13 10/19/18 04:13 Lab Results 0910/19/18 10/19/18 17:11 04:13 04:13 WBC 8.5 Hgb 7.9 L Hct 26.6 L Plt Count 342 Sodium 134 L 137 Potassium 4.6 4.6 Chloride 89 L 92 L Carbon Dioxide 42 H* 41 H* BUN 27 H 30 H Creatinine 1.10 0.96 Glucose 336 H 194 H Calcium 10.3 10.2 Magnesium 1.8 Consult Discharge Plan - Plan Referrals: NONE,PCP [Primary Care Provider] - <Bartolome Mckenzie - Last Filed: 10/19/18 13:41> Date of Encounter: 10/19/18 Assessment and Plan (1) Elevated troponin Current Visit: Yes Status: Acute I examined this patient and my medical decision-making was reviewed with the Resident Physician. I agree with the documented findings, disposition and treatment plan as described except to the extent set forth below. Non-ST elevation myocardial infarction, hemoglobin 7.9 awaiting GI clearance prior to her [facility]. Discussion w patient/family: The assessment and plan as outlined above was discussed with the patient and/or family members who expressed understanding and agreement. All questions were answered. Thank you for involving us in the care of your patient. Please call with any questions. Objective Vital Signs, Last 4 Hours Temp Pulse Resp BP Pulse Ox 10/19/18 11:32 98.7 F 70 18 163/64 95 10/19/18 11:22 18 94 Results 10/19/18 04:13 10/19/18 04:13 Lab Results 10/18/18 10/19/18 10/19/18 17:11 04:13 04:13 WBC 8.5 Hgb 7.9 L Hct 26.6 L Plt Count 342 Sodium 134 L 137 Potassium 4.6 4.6 Chloride 89 L 92 L Carbon Dioxide 42 H* 41 H* BUN 27 H 30 H Creatinine 1.10 0.96 Glucose 336 H 194 H Calcium 10.3 10.2 Magnesium 1.8
[2018-10-19] MEDS: Acetaminophen 325 MG TABLET PO PRN (11:15)
--- NOTE | 2018-10-19 11:35 | Internal Med Progress Note ---
Hospitalist Progress Note - Encounter Date of Encounter: 10/19/18 Time of Encounter: 11:34 - Subjective Interval History: I have seen and evaluated the patient at bedside. Patient reported feeling well today, denies chest pain, shortness of breath or abdominal pain. denies nausea or vomiting. - Exam Vitals: Temp Pulse Resp BP Pulse Ox 98.7 F 70 18 163/64 95 10/19/18 11:32 10/19/18 11:32 10/19/18 11:32 10/19/18 11:32 10/19/18 11:32 Exam: Vitals: Reviewed General: Morbidly obese, Alert and oriented x3. In no distress Cardiovascular: RRR, normal S1 & S2, no rubs, murmurs or gallops. Lungs: CTA b/l, no wheezes or crackles. Abdomen: Obese, soft, non-tender, no rigidity. NABS in all 4 quadrants. Extremities: No edema Neurological: No focal neurological abnormalities Rest of the physical exam is non contributory - Assessment and Plan (1) HTN (hypertension) Current Visit: Yes Status: Chronic (2) DVT prophylaxis Current Visit: Yes Status: Acute (3) Congestive heart failure Current Visit: Yes Status: Chronic (4) Acute on chronic respiratory failure with hypoxia and hypercapnia Current Visit: Yes Status: Resolved (5) Hypoventilation associated with obesity syndrome Current Visit: Yes Status: Acute (6) Morbid obesity with BMI of 60.0-69.9, adult Current Visit: Yes Status: Acute (7) Elevated troponin Current Visit: Yes Status: Acute (8) Diabetes Current Visit: Yes Status: Chronic - Summary of Assessment and Plan Summary of Assessment and Plan: 58 F w hx MRDD w appointed legal guardian, COPD and OHS c/b chronic hypercapneic resp failure on bipap qhs, HFpEF, HTN, HLD, DM2, GERD, morbid obesity, who was found unreponsive at ECF and thus EMS called. They found her hypoxic at 78%; placed BiPAP on her with excellent recovery. Assessment: 1. Elevated trops 2. Chronic Hypercapnic respiratory failure 3. Obesity hypoventilation syndrome 4. Morbidly obese 5. Uncontrolled DM 6. VTE prophylaxis 7. HFpEF 8. hypothyroidism 9. Anemia Plan: Patient with slight drop in H&H - GI has been consulted for clearance prior to LHC. - Iron panel, FOBT ordered - cardiology recommendations appreciated - On aspirin, statin an a bb. - patient is euvolemic. with a total negative balance of 2.8 litters - c/w furosemide 40mg/IV BID. Fluids restriction to 1.5 litters a day, plus daily weight - on bronchodilators Q4RT Scheduled. on symbicort. - DC iv steroids. started on a prednisone taper. - Empirically on levofloxacin 750mg/IV daily. - nocturnal BiPap. - Blood sugar well controlled - c/w levemir 30 units BID, lispro 10 units ac. and lispro high dose sliding scalem ac. - On levothyroxine 50 mcg/po daily - c/w enoxaparin subq for dvt prophylaxis - Patient is on divalproex, lithium, risperidone and topiromate. Disposition: - Patient to remain in the hospital pending GI clearance for [facility]. - Time Spent with Patient Total time spent is greater than 50% in coordination of care (as documented) at patient's floor/unit and/or counseling patient: Greater than 35 minutes (45) Plan of Care Discussed with: nurse Internal Medicine: Result - Labs CBC & Chem 7: 10/19/18 04:13 10/19/18 04:13 Labs: Short CBC 10/19/18 Range/Units 04:13 WBC 8.5 (4.3-11.1) K/mcL Hgb 7.9 L (11.5-15.4) g/dL Hct 26.6 L (35.3-44.9) % Plt Count 342 (140-400) K/mcL Neutrophils # 4.9 (1.6-8.9) K/mcL BMP 10/18/18 10/19/18 17:11 04:13 Sodium 134 L 137 Potassium 4.6 4.6 Chloride 89 L 92 L Carbon Dioxide 42 H* 41 H* BUN 27 H 30 H Creatinine 1.10 0.96 Glucose 336 H 194 H Calcium 10.3 10.2 - ABG Interpretation ABG results: ABG ABG pH 7.35 pH Units (7.32-7.45) 10/18/18 04:39 ABG pCO2 78 mmHg (35-45) H* 10/18/18 04:39 ABG pO2 81 mmHg (85-104) L 10/18/18 04:39 ABG O2 Saturation 95 % (95-98) 10/18/18 04:39 Consult Discharge Plan - Plan Referrals: NONE,PCP [Primary Care Provider] - (1) HTN (hypertension) Qualifiers: Hypertension type: essential hypertension Qualified Code(s): I10 - Essential (primary) hypertension (3) Congestive heart failure Qualifiers: Heart failure type: unspecified Heart failure chronicity: chronic Qualified Code(s): I50.9 - Heart failure, unspecified (8) Diabetes Qualifiers: Diabetes mellitus type: type 2 Diabetes mellitus termite control service representative insulin use: unspecified long-term insulin use status Diabetes mellitus complication status: with other specified complication Qualified Code(s): E11.69 - Type 2 diabetes mellitus with other specified complication
[2018-10-19] MEDS ORDERED: Insulin LISPRO 300 UNITS/3 ML VIAL SQ SCH (17:00)
[2018-10-19] MEDS ORDERED: Insulin DETEMIR 100 UNIT/ML X5UNITS SQ SCH ×2 (21:00)
[2018-10-19] MEDS: Aspirin Enteric Coated 81 MG Tablet PO SCH (21:29)
[2018-10-19] MEDS: Melatonin 3 MG TABLET PO SCH (21:30)
[2018-10-19] MEDS: Lithium Oral Soln 300 MG/5 ML (8 mEq/5mL) UDC PO SCH (21:35)
[2018-10-20] MEDS: Ipratropium/Albuterol Neb 3 ML IH SCH ×5 (00:11→10:35)
[2018-10-20 05:27] LABS: Basophils % 0.2 %; Eosinophils # 0.1 K/mcL (0.0-0.6); Eosinophils % 0.9 %; Hematocrit 28.4 % (35.3-44.9); Hemoglobin 8.4 g/dL (11.5-15.4); Immature Granulocytes % 4.2 % (0-4); Lymphocytes # 2.3 K/mcL (0.6-4.6); Lymphocytes % 24.5 %; Mean Corpuscular HGB Conc 29.6 g/dL (31.6-35.5); Mean Corpuscular Hemoglobin 28.1 pg (28.0-33.3); Mean Platelet Volume 8.8 fL (9.4-12.4); Monocytes # 0.9 K/mcL (0.0-1.3); Monocytes % 9.1 %; Neutrophils # 5.9 K/mcL (1.6-8.9); Platelet Count 366 K/mcL (140-400); Red Blood Count 2.99 M/mcL (3.82-4.97); Red Cell Distribution Width 14.7 % (11.5-14.5); Segmented Neutrophils % 61.1 %; White Blood Count 9.6 K/mcL (4.3-11.1)
[2018-10-20 05:50] LABS: Magnesium 1.7 mg/dL (1.6-2.6); Phosphorous 3.7 mg/dL (2.7-4.5)
[2018-10-20 05:52] LABS: % Iron Saturation 10 % (15-50); Alanine Aminotransferase 14 Units/L (7-52); Albumin 3.3 g/dL (3.5-5.7); Albumin/Globulin Ratio 1.3 (1.1-2.2); Alkaline Phosphatase 48 Units/L (34-104); Aspartate Amino Transferase 11 Units/L (13-39); BUN/Creatinine Ratio 32 (6-26); Bilirubin,Total 0.3 mg/dL (0.3-1.0); Blood Urea Nitrogen 28 mg/dL (6-20); Calcium 9.8 mg/dL (8.6-10.3); Carbon Dioxide 38 mEq/L (23-29); Chloride 91 mEq/L (98-107); Globulin 2.6 g/dL (2.4-3.5); Glucose 306 mg/dL (70-105); Iron 39 mcg/dL (50-170); Osmolality,Calculated 297 (280-300); Potassium 4.6 mEq/L (3.5-5.1); Sodium 135 mEq/L (136-145); Total Protein 5.9 g/dL (6.4-8.9); Transferrin 273 mg/dL (203-362); eGFR For African Americans > 60 (> 60); eGFR For Non-African Americans > 60 (> 60)
[2018-10-20] MEDS: *HR* Enoxaparin 40 MG/0.4 ML SYRINGE SQ SCH (05:52)
[2018-10-20] MEDS: MethylPREDNISolone 40 MG/ML VIAL IVP SCH (06:43)
[2018-10-20] MEDS: Budesonide/Formoterol 160/4.5 1 PUFF INH IH SCH ×2 (07:29→21:05)
[2018-10-20] MEDS ORDERED: Insulin LISPRO 300 UNITS/3 ML VIAL SQ SCH (08:00)
[2018-10-20] MEDS: Insulin DETEMIR 100 UNIT/ML X5UNITS SQ SCH ×2 (08:39→20:40)
[2018-10-20] MEDS: Insulin LISPRO 300 UNITS/3 ML VIAL SQ SCH ×7 (08:39→20:40)
[2018-10-20] MEDS: ARIPiprazole 10 MG TABLET PO SCH (08:40)
[2018-10-20] MEDS: Topiramate 25 MG TABLET PO SCH ×2 (08:40→17:12)
[2018-10-20] MEDS: RisperiDAL 3 MG TABLET PO SCH (08:40)
[2018-10-20] MEDS: Divalproex (12 HR) 500 MG TABLET PO SCH ×2 (08:40→20:39)
[2018-10-20] MEDS: Furosemide 40 MG TABLET PO SCH (08:40)
[2018-10-20] MEDS: levoFLOXacin 750 MG/150 ML 750 MG/150 ML BAG IVPB SCH (08:40)
[2018-10-20] MEDS: Gabapentin 300 MG CAPSULE PO SCH ×2 (08:40→20:39)
[2018-10-20] MEDS: Acetaminophen 325 MG TABLET PO PRN (08:56)
[2018-10-20] MEDS ORDERED: amLODIPine 5 MG TABLET PO SCH (09:00)
[2018-10-20] MEDS ORDERED: predniSONE 20 MG TABLET PO SCH (09:00)
--- NOTE | 2018-10-20 09:49 | Gastroenterology Consult Note ---
<Manisha Garg - Last Filed: 10/20/18 14:27> Date of Encounter: 10/20/18 Time of Encounter: 09:49 - Assessment and plan (1) Anemia Current Visit: No Status: Acute Assessment and plan: Presented to [facility], noticed to have hemoglobin of 8.0 this morning hemoglobin 8.4, 08/02 hemoglobin 9.7 Patient noted to have stool occult positive Her Iron panel shows mildly decreased serum iron Due to her MRDD she is not able to elaborate is she has hematochezia or melana at home Patient is very hesitant to get a scope but spoke court appointed POA who has consented to the procedure No previous EGD or colonoscopies on file B12 and folate levels pending Obtained consent from core ordered appointed POA to perform endoscopy and colonoscopy Colonoscopy and EGD was planned for today but due to poor prep we will repeat prep and plan for scope tomorrow Qualifiers: Anemia type: unspecified type Qualified Code(s): D64.9 - Anemia, unspecified - Time Spent With Patient Total time spent is greater than 50% in coordination of care (as documented) at patient's floor/unit and/or counseling patient: GI History of Present Illness - Data of Consult Requesting Physician: Juan Lutz MD - Consult Narrative History of present illness: Ms. Dill is a 58 year old female with history of MRDD, COPD, GERD, hypertension, hyperlipidemia and morbid obesity who was found unresponsive at her outside ECF. At presentation to [facility] she was found to be hypoxic with oxygen saturation of 70% placed on BiPAP with significant improvement. At presentation she had hypercapnia with hypoxia Her troponin at admission was noted to be 0. 72, 0.43, 0.25. Echo was attempted but could not be completed due to patient's lack of cooperation. Cardiology received verbal consent from court-ordered guardian procedure could not be completed due to anemia. Urology recommends further workup for anemia prior to heart catheterization. Patient is seen at bedside this morning she is awake and alert but not oriented to place or time. She is very aggravated and is concerned about the scheduled colonoscopy and EGD does not want procedures. After social work and nursing spoke with the patient she is agreeable as long as the mental health social worker or the nurse accompanies the patient during the procedures. Attempted to obtain consent from core or pointed guardian but guardian could not be reachable via phone left message. Past Med Surg Social Fam HX - Past Medical History Medical history: CHF, COPD, diabetes, GERD, hyperlipidemia, hypertension Psychiatric history: other - Social History Smoking Status: Never smoker Smokeless Tobacco Status: No Alcohol use: none Drug use: none ROS unobtainable: due to mental status (Patient is MRDD, information cannot be obtained) - Gastrointestinal Gastrointestinal: Absent: abdominal pain, nausea - Constitutional Vitals: Temp Pulse Resp BP Pulse Ox 98.1 F 77 18 163/72 92 10/20/18 07:00 10/20/18 07:00 10/20/18 07:00 10/20/18 07:00 10/20/18 07:00 - Head Head exam: Present: atraumatic, normal inspection - Eye Eye exam: Present: EOMI, sclera anicteric. Absent: conjunctival injection - ENT ENT exam: Present: mucous membranes moist, normal oropharynx - Neck Neck exam general surgery: Present: full ROM, trachea midline - Respiratory Respiratory exam: Present: CTAB. Absent: rhonchi, wheezes - Cardiovascular Cardiovascular exam: Present: RRR, +S1, +S2 - GI/Abdominal GI/Abdominal exam: Present: soft. Absent: firm, tenderness - Psychiatric Psychiatric exam: Present: agitated, anxious Results - Labs CBC & Chem 7: 10/20/18 05:00 10/20/18 05:00 Labs: Last Result 10/20/18 10/20/18 02:40 05:00 Calcium 9.8 Iron 39 L % Saturation 10 L Transferrin 273 Stool Occult Blood Positive A Entire Visit 10/20/18 10/20/18 05:00 05:00 Hgb 8.4 L Hct 28.4 L Total Bilirubin 0.3 AST 11 L ALT 14 - ABG ABG results: ABG ABG pH 7.35 pH Units (7.32-7.45) 10/18/18 04:39 ABG pCO2 78 mmHg (35-45) H* 10/18/18 04:39 ABG pO2 81 mmHg (85-104) L 10/18/18 04:39 ABG O2 Saturation 95 % (95-98) 10/18/18 04:39 Consult Discharge Plan - Plan Referrals: NONE,PCP [Primary Care Provider] - <Gul,Alberta - Last Filed: 10/20/18 19:22> Date of Encounter: 10/20/18 Time of Encounter: 12:00 - Time Spent With Patient Total time spent is greater than 50% in coordination of care (as documented) at patient's floor/unit and/or counseling patient: GI History of Present Illness - Data of Consult Requesting Physician: Juan Lutz MD - Consult Narrative History of present illness: Ms. Dill is a 58 year old female - Constitutional Vitals: Temp Pulse Resp BP Pulse Ox 99.1 F 78 18 172/63 97 10/20/18 19:12 10/20/18 19:12 10/20/18 19:12 10/20/18 19:12 10/20/18 19:12 Results - Labs CBC & Chem 7: 10/20/18 05:00 10/20/18 05:00 - ABG ABG results: ABG ABG pH 7.35 pH Units (7.32-7.45) 10/18/18 04:39 ABG pCO2 78 mmHg (35-45) H* 10/18/18 04:39 ABG pO2 81 mmHg (85-104) L 10/18/18 04:39 ABG O2 Saturation 95 % (95-98) 10/18/18 04:39 - Attending Attestation I examined this patient and my medical decision-making was reviewed with the Resident Physician. I agree with the documented findings, disposition and treatment plan as described except to the extent set forth below. Pt seen no active issues. o/E AA , has MRDD. A: Pt with MRDD with anemia Rec: EG D/colon
--- NOTE | 2018-10-20 10:16 | Cardiology Progress Note ---
<Hannah Willis - Last Filed: 10/20/18 10:26> Date of Encounter: 10/20/18 Time of Encounter: 10:10 Assessment and Plan (1) Elevated troponin Current Visit: Yes Status: Acute I examined this patient and my medical decision-making was reviewed with the Resident Physician. I agree with the documented findings, disposition and treatment plan as described except to the extent set forth below. Non-ST elevation myocardial infarction, hemoglobin 7.9 awaiting GI clearance prior to her LHC. -Signing off until GI recommendations are available. -Please contact Cardiology when GI recommendations are complete. -Verbal approval for cardiac catheterization was obtained from court-appointed guardian and is on-file in unit -We will notify guardian when a date is set for cardiac catheterization -Recommend LHC prior to discharge Discussion w patient/family: The assessment and plan as outlined above was discussed with the patient and/or family members who expressed understanding and agreement. All questions were answered. Thank you for involving us in the care of your patient. Please call with any questions. Subjective Principal diagnosis: elevated troponins Interval history: Patient slept well last night. She continues to be agitated when GI testing is mentioned though calms down with reassurance. She feels better and denies chest pain or dyspnea. She reports that her legs still hurt though less than before. Objective Vital Signs, Last 4 Hours Temp Pulse Resp BP Pulse Ox 10/20/18 07:00 98.1 F 77 18 163/72 92 Other: GENERAL: awake, generally calm though easily agitated by mention of colonoscopy EYES: clear sclerae, anicteric, pupils equal and reactive to light bilaterally HENT: atraumatic, normocephalic, moist mucosa NECK: carotid pulses 2+/4, no carotid bruits CV: regular rate and rhythm, no murmurs present RESPIRATORY/CHEST: nontender to palpation, clear to auscultation bilaterally. No rhonchi, wheezes, or rales ABDOMEN: soft, nontender, nondistended, obese abdomen. Normal bowel sounds heard EXTREMITIES: acyanotic, nonpitting edema present, tenderness in bilateral LE present though improved from yesterday. Peripheral pulses 2+/4 SKIN: flaking over BLE, warm, dry Results 10/20/18 05:00 10/20/18 05:00 Lab Results 10/20/18 10/20/1810/20/19 05:00 05:00 05:00 WBC 9.6 Hgb 8.4 L Hct 28.4 L Plt Count 366 Sodium 135 L Potassium 4.6 Chloride 91 L Carbon Dioxide 38 H BUN 28 H Creatinine 0.88 Glucose 306 H Calcium 9.8 Magnesium 1.7 Total Bilirubin 0.3 AST 11 L ALT 14 Alkaline Phosphatase 48 Consult Discharge Plan - Plan Referrals: NONE,PCP [Primary Care Provider] - <Bartolome Mckenzie - Last Filed: 10/20/18 15:07> Date of Encounter: 10/20/18 Assessment and Plan (1) Elevated troponin Current Visit: Yes Status: Acute I examined this patient and my medical decision-making was reviewed with the Resident Physician. I agree with the documented findings, disposition and treatment plan as described except to the extent set forth below. 58-year-old female with history of MR a poor historian here with non-ST elevation myocardial infarction and severe anemia with a hemoglobin of 7.9 awaiting GI clearance for potential LHC. Risks benefits and alternatives were discussed with the guardian of the patient and he agreed however prior to pursuing LHC we would require clearance for dual antiplatelet therapy in the setting of severe anemia. Patient is reluctant to proceed with any procedures at this time likely with moderate be compliant similar to her previous 2 ec hocardiograms which could not be completed. If patient is to proceed with an LHC she may require conscious sedation versus anesthesia therefore precath clearance is necessary in case patient does require PCI. Discussion w patient/family: The assessment and plan as outlined above was discussed with the patient and/or family members who expressed understanding and agreement. All questions were answered. Thank you for involving us in the care of your patient. Please call with any questions. Results 10/20/18 05:00 10/20/18 05:00 Lab Results 10/20/18 10/20/18 10/20/18 05:00 05:00 05:00 WBC 9.6 Hgb 8.4 L Hct 28.4 L Plt Count 366 Sodium 135 L Potassium 4.6 Chloride 91 L Carbon Dioxide 38 H BUN 28 H Creatinine 0.88 Glucose 306 H Calcium 9.8 Magnesium 1.7 Total Bilirubin 0.3 AST 11 L ALT 14 Alkaline Phosphatase 48
--- NOTE | 2018-10-20 10:24 | Internal Med Progress Note ---
Hospitalist Progress Note - Encounter Date of Encounter: 10/20/18 Time of Encounter: 10:24 - Subjective Interval History: I have seen and evaluated the patient at bedside. patient reporting feeling well. denies chest pain, shortness of breath, nausea or vomiting. - Exam Vitals: Temp Pulse Resp BP Pulse Ox 98.1 F 77 18 163/72 92 10/20/18 07:00 10/20/18 07:00 10/20/18 07:00 10/20/18 07:00 10/20/18 07:00 Exam: Vitals: Reviewed General: Morbidly obese, Alert and oriented x3. In no distress Cardiovascular: RRR, normal S1 & S2, no rubs, murmurs or gallops. Lungs: CTA b/l, no wheezes or crackles. Abdomen: Obese, soft, non-tender, no rigidity. NABS in all 4 quadrants. Extremities: No edema Neurological: No focal neurological abnormalities Rest of the physical exam is non contributory - Assessment and Plan (1) HTN (hypertension) Current Visit: Yes Status: Chronic (2) DVT prophylaxis Current Visit: Yes Status: Acute (3) Congestive heart failure Current Visit: Yes Status: Chronic (4) Acute on chronic respiratory failure with hypoxia and hypercapnia Current Visit: Yes Status: Resolved (5) Hypoventilation associated with obesity syndrome Current Visit: Yes Status: Acute (6) Morbid obesity with BMI of 60.0-69.9, adult Current Visit: Yes Status: Acute (7) Elevated troponin Current Visit: Yes Status: Acute (8) Diabetes Current Visit: Yes Status: Chronic - Summary of Assessment and Plan Summary of Assessment and Plan: 58 F w hx MRDD w appointed legal guardian, COPD and OHS c/b chronic hypercapneic resp failure on bipap qhs, HFpEF, HTN, HLD, DM2, GERD, morbid obesity, who was found unreponsive at ECF and thus EMS called. They found her hypoxic at 78%; placed BiPAP on her with excellent recovery. Assessment: 1. Elevated trops 2. Chronic Hypercapnic respiratory failure 3. Obesity hypoventilation syndrome 4. Morbidly obese 5. Uncontrolled DM 6. VTE prophylaxis 7. HFpEF 8. hypothyroidism 9. Anemia 10. GI bleed Plan: H&H stable. -FOBT positive. - PPIs added - DC enoxaparin - Patient scheduled for EGD today. - Pending GI clearance for [facility]. - cardiology recommendations appreciated - c/w aspirin, statin an a bb. - BP sub-optimally controlled. amlodipine 5mg/PO daily added. - patient is euvolemic. with a total negative balance of 5.2 litters - decrease furosemide to 40mg/PO daily. Fluids restriction to 1.5 litters a day, plus daily weight - c/w bronchodilators Q4RT Scheduled. on symbicort. - Decrease prednisone to 30mg/PO daily. - Change IV antibiotics to oral levofloxacin 750mg/PO daily. - c/w nocturnal BiPap. - Blood sugar sub-optimally controlled. levemir increased to 45 units BID, lispro ac increased to 20 units. c/w lispro high dose sliding scale. - On levothyroxine 50 mcg/po daily - No chemical dvt prophylaxis due to anemia with positive FOBT. intermittent pneumatic compression ordered. - c/w divalproex, lithium, risperidone and topiromate. Disposition: - Patient to remain in the hospital pending C. - Time Spent with Patient Total time spent is greater than 50% in coordination of care (as documented) at patient's floor/unit and/or counseling patient: Greater than 35 minutes (45) Plan of Care Discussed with: nurse Internal Medicine: Result - Labs CBC & Chem 7: 10/20/18 05:00 10/20/18 05:00 Labs: Short CBC 10/20/18 Range/Units 05:00 WBC 9.6 (4.3-11.1) K/mcL Hgb 8.4 L (11.5-15.4) g/dL Hct 28.4 L (35.3-44.9) % Plt Count 366 (140-400) K/mcL Neutrophils # 5.9 (1.6-8.9) K/mcL BMP 10/20/18 05:00 Sodium 135 L Potassium 4.6 Chloride 91 L Carbon Dioxide 38 H BUN 28 H Creatinine 0.88 Glucose 306 H Calcium 9.8 Liver Function 10/20/18 Range/Units 05:00 Total Bilirubin 0.3 (0.3-1.0) mg/dL AST 11 L (13-39) Units/L ALT 14 (7-52) Units/L Alkaline Phosphatase 48 (34-104) Units/L Albumin 3.3 L (3.5-5.7) g/dL - ABG Interpretation ABG results: ABG ABG pH 7.35 pH Units (7.32-7.45) 10/18/18 04:39 ABG pCO2 78 mmHg (35-45) H* 10/18/18 04:39 ABG pO2 81 mmHg (85-104) L 10/18/18 04:39 ABG O2 Saturation 95 % (95-98) 10/18/18 04:39 Consult Discharge Plan - Plan Referrals: NONE,PCP [Primary Care Provider] - (1) HTN (hypertension) Qualifiers: Qualified Code(s): I10 - Essential (primary) hypertension (3) Congestive heart failure Qualifiers: Qualified Code(s): I50.9 - Heart failure, unspecified (8) Diabetes Qualifiers: Qualified Code(s): E11.69 - Type 2 diabetes mellitus with other specified complication
[2018-10-20] MEDS: Pantoprazole 40 MG VIAL IVP SCH (11:06)
[2018-10-20] MEDS ORDERED: Ipratropium/Albuterol Neb 3 ML IH PRN (11:14)
[2018-10-20] MEDS ORDERED: amLODIPine 5 MG TABLET PO ONE (16:42)
[2018-10-20] MEDS: Melatonin 3 MG TABLET PO SCH (20:39)
[2018-10-20] MEDS: Lithium Oral Soln 300 MG/5 ML (8 mEq/5mL) UDC PO SCH (20:39)
[2018-10-20] MEDS: Aspirin Enteric Coated 81 MG Tablet PO SCH (20:39)
[2018-10-21 03:59] LABS: Basophils % 0.2 %; Eosinophils # 0.1 K/mcL (0.0-0.6); Eosinophils % 0.5 %; Hemoglobin 8.9 g/dL (11.5-15.4); Immature Granulocytes % 3.4 % (0-4); Lymphocytes % 21.3 %; Mean Corpuscular HGB Conc 29.7 g/dL (31.6-35.5); Mean Corpuscular Hemoglobin 28.2 pg (28.0-33.3); Mean Corpuscular Volume 94.9 fL (83.0-100.0); Mean Platelet Volume 8.5 fL (9.4-12.4); Monocytes # 0.7 K/mcL (0.0-1.3); Neutrophils # 6.2 K/mcL (1.6-8.9); Platelet Count 376 K/mcL (140-400); Red Blood Count 3.16 M/mcL (3.82-4.97); Red Cell Distribution Width 14.5 % (11.5-14.5); Segmented Neutrophils % 67.6 %; White Blood Count 9.2 K/mcL (4.3-11.1)
[2018-10-21 04:21] LABS: Magnesium 1.8 mg/dL (1.6-2.6)
[2018-10-21 04:25] LABS: Phosphorous 3.6 mg/dL (2.7-4.5)
[2018-10-21 04:45] LABS: Folate 11.5 ng/mL (3.0-16.0)
[2018-10-21] MEDS ORDERED: Simethicone 40 MG/0.6 ML MLS IR STA (07:47)
[2018-10-21] MEDS: Budesonide/Formoterol 160/4.5 1 PUFF INH IH SCH ×2 (07:47→20:12)
--- NOTE | 2018-10-21 07:52 | Anesthesia Evaluation PreOp ---
Date of Encounter: 10/21/18 Time of Encounter: 07:50 - Past History Planned Operation: EGD Colonoscopy Cardiac History: CHF, HTN, Hyperlipidemia Pulmonary History: COPD (chronic hypercarbia, CPAP at night) MORTGAGE LOAN PROCESSOR History: Other (MRDD) Other Medical History: Diabetes Type II, GERD : No Alcohol Use: none Drug use: none Medications and Allergies Aripiprazole [Abilify] 20 mg PO QAM 08/11/18 [History] Aspirin [Adult Aspirin Regimen] 81 mg PO HS 08/11/18 [History] Atorvastatin [Lipitor] 40 mg PO DAILY 08/11/18 [History] Divalproex Sodium 1,000 mg PO BID 08/11/18 [History] Dulaglutide [Trulicity] 0.75 mg SQ BAUTISTA 08/11/18 [History] Furosemide [Lasix] 40 mg PO BID 08/11/18 [History] Gabapentin [Neurontin] 300 mg PO BID 08/11/18 [History] Ibuprofen [Ibu-200] 200 mg PO Q8H PRN 08/11/18 [History] Lactase [Lactaid] 3,000 unit PO Q6H PRN 08/11/18 [History] Levothyroxine [Synthroid] 50 mcg PO 0600 08/11/18 [History] Loratadine [Allergy Relief] 10 mg PO DAILY 08/11/18 [History] Melatonin 6 mg PO HS 08/11/18 [History] Metformin HCl [Glucophage] 1,000 mg PO BID 08/11/18 [History] Multivitamin [One Daily Essential] 1 tab PO DAILY 08/11/18 [History] [place]-3/Dha/Epa/Fish Oil [[place] 3 500 Softgel] 2 cap PO HS 08/11/18 [History] Ranitidine HCl [Heartburn Relief] 150 mg PO BID 08/11/18 [History] Topiramate [Topamax] 25 mg PO BIDWM 08/11/18 [History] Metoprolol [Lopressor] 12.5 mg PO BID #60 tablet 08/17/18 [Rx] Cholecalciferol (Vitamin D3) [Vitamin D3] 2,000 unit PO DAILY 09/24/18 [History] Ipratropium/Albuterol Neb [Duoneb] 3 ml IH Q6HR PRN 09/24/18 [History] Lisinopril [Zestril] 40 mg PO DAILY 09/24/18 [History] [place] Carbonate 150 mg PO HS 09/24/18 [History] Mag Hydrox/Al Hydrox/Simeth [Maalox] 30 ml PO Q4H PRN 09/24/18 [History] risperiDONE [Risperdal] 3 mg PO QAM 09/24/18 [History] Guaifenesin [Mucus Relief] 400 mg PO DAILY 10/17/18 [History] HydrOXYzine Pamoate [Vistaril] 50 mg PO HS 10/17/18 [History] Insulin Glargine,Hum.rec.anlog [Basaglar Kwikpen U-100] 85 unit SQ 0600,1800 10/17/18 [History] Insulin LISPRO [Humalog Kwikpen U-100] 17 unit SQ HS 10/17/18 [History] Insulin LISPRO [Humalog Kwikpen U-100] 24 unit SQ TID 10/17/18 [History] risperiDONE [Risperidone] 1 mg PO HS 10/17/18 [History] Allergy/AdvReac Type Severity Reaction Status Date / Time benztropine Allergy See Verified 08/10/18 21:52 Comments chlorpromazine Allergy See Verified 08/10/18 21:52 [From Thorazine] Comments codeine Allergy See Verified 08/10/18 21:52 Comments haloperidol [From Haldol] Allergy See Verified 08/10/18 21:52 Comments lorazepam Allergy See Verified 08/10/18 21:52 Comments Penicillins Allergy See Verified 08/10/18 21:52 Comments Sulfa (Sulfonamide Allergy See Verified 08/10/18 21:52 Antibiotics) Comments - Meds/Allergy Pre-op Review Medications Reviewed: Yes Allergies Reviewed: Yes Beta Blockers on Current Med List: No Anesthesia Results - Labs 10/21/18 03:46 10/20/18 05:00 Laboratory Tests 08/11/18 10/18/18 07:58 04:39 ABG pH 7.35 ABG pCO2 78 H* ABG pO2 81 L ABG HCO3 44 H ABG Total CO2 46 H ABG O2 Saturation 95 ABG Base Excess 15 H Hemoglobin A1c 7.4 H Anesthesia Exam Vital Signs/O2 Sat, Most Current Temp Pulse Resp BP Pulse Ox 98.2 F 57 22 148/62 95 10/21/18 03:50 10/21/18 03:50 10/21/18 07:47 10/21/18 03:50 10/21/18 07:47 - HEENT Pupil (Motor): Pupils equal Mallampati: III Oral Opening: Greater than 3 - MORTGAGE LOAN PROCESSOR LOC: Oriented M[employer]AGE LOAN PROC[employer]OR Motor: Normal RUE, Normal LUE, Normal RLE, Normal LLE, Normal Face M[employer]GAGE LO[employer] PROC[employer]OR Sensory: Normal: RUE, LUE, RLE, LLE, Face - Cardiac Rhythm: Regular Murmur: None JVD: No - Pulmonary Breath Sounds: bilateral Clear Respiratory Effort: Symmetrical Anesthesia Assess/Plan ASA Score: 4 Level of consciousness: Cooperative Anesthetic Plan: MAC Monitoring Plan: Standard Monitors Recovery Plan: PACU
[2018-10-21 08:05] LABS: BUN/Creatinine Ratio 25 (6-26); Blood Urea Nitrogen 21 mg/dL (6-20); Calcium 10.5 mg/dL (8.6-10.3); Carbon Dioxide 39 mEq/L (23-29); Chloride 95 mEq/L (98-107); Glucose 177 mg/dL (70-105); Osmolality,Calculated 287 (280-300); Potassium 4.9 mEq/L (3.5-5.1); Sodium 135 mEq/L (136-145); eGFR For African Americans > 60 (> 60); eGFR For Non-African Americans > 60 (> 60)
[2018-10-21] MEDS ORDERED: 0.9 % Sodium Chloride 500 ML IVC SCH (09:00)
[2018-10-21] MEDS ORDERED: Furosemide 40 MG TABLET PO SCH (09:00)
[2018-10-21] MEDS ORDERED: Lidocaine -MPF 2% 2 ML VIAL ONE (09:08)
[2018-10-21] MEDS ORDERED: Propofol 500 MG/50 ML INFUS..BTL ONE (09:12)
[2018-10-21] MEDS ORDERED: *HR* Midazolam HCl 2 MG/2 ML VIAL ONE (09:18)
[2018-10-21] MEDS: Insulin LISPRO 300 UNITS/3 ML VIAL SQ SCH ×7 (10:37→21:10)
[2018-10-21] MEDS: Gabapentin 300 MG CAPSULE PO SCH ×2 (10:58→21:03)
[2018-10-21] MEDS: Topiramate 25 MG TABLET PO SCH ×2 (10:59→16:41)
[2018-10-21] MEDS: RisperiDAL 3 MG TABLET PO SCH (11:01)
[2018-10-21] MEDS: Divalproex (12 HR) 500 MG TABLET PO SCH ×2 (11:01→21:03)
[2018-10-21] MEDS: ARIPiprazole 10 MG TABLET PO SCH (11:01)
[2018-10-21] MEDS: predniSONE 20 MG TABLET PO SCH (11:02)
[2018-10-21] MEDS: amLODIPine 5 MG TABLET PO SCH (11:02)
[2018-10-21] MEDS: levoFLOXacin 750 MG TABLET PO SCH (11:03)
[2018-10-21] MEDS: Pantoprazole 40 MG VIAL IVP SCH (11:03)
[2018-10-21] MEDS: Insulin DETEMIR 100 UNIT/ML X5UNITS SQ SCH ×2 (11:18→21:11)
--- NOTE | 2018-10-21 13:03 | Event Note ---
Date of Encounter: 10/21/18 Time of Encounter: 13:00 - Cardiology Event Note Notified by primary service that GI has completed evaluation and cleared patient from their perspective for catheterization. Full note to be completed tomorrow with anticipated possible catheterization Tuesday.
--- NOTE | 2018-10-21 13:10 | Internal Med Progress Note ---
Hospitalist Progress Note - Encounter Date of Encounter: 10/21/18 Time of Encounter: 13:04 - Subjective Interval History: I have seen and evaluated the patient at bedside. Patient reported feeling well. denies chest pain, shortness of breath, nausea or vomiting. denies abdominal pain. - Exam Vitals: Temp Pulse Resp BP Pulse Ox 98.7 F 90 16 170/56 93 10/21/18 12:10/21/18 12:10/21/18 12:10/21/18 12:10/21/18 12:09 Exam: Vitals: Reviewed General: Morbidly obese, Alert and oriented x3. In no distress Cardiovascular: RRR, normal S1 & S2, no rubs, murmurs or gallops. Lungs: CTA b/l, no wheezes or crackles. Abdomen: Obese, soft, non-tender, no rigidity. Extremities: No edema Neurological: No focal neurological abnormalities Rest of the physical exam is non contributory - Assessment and Plan (1) HTN (hypertension) Current Visit: Yes Status: Chronic (2) DVT prophylaxis Current Visit: Yes Status: Acute (3) Congestive heart failure Current Visit: Yes Status: Chronic (4) Acute on chronic respiratory failure with hypoxia and hypercapnia Current Visit: Yes Status: Resolved (5) Hypoventilation associated with obesity syndrome Current Visit: Yes Status: Acute (6) Morbid obesity with BMI of 60.0-69.9, adult Current Visit: Yes Status: Acute (7) Elevated troponin Current Visit: Yes Status: Acute (8) Diabetes Current Visit: Yes Status: Chronic - Summary of Assessment and Plan Summary of Assessment and Plan: 58 F w hx MRDD w appointed legal guardian, COPD and OHS c/b chronic hypercapneic resp failure on bipap qhs, HFpEF, HTN, HLD, DM2, GERD, morbid obesity, who was found unreponsive at ECF and thus EMS called. They found her hypoxic at 78%; placed BiPAP on her with excellent recovery. Assessment: 1. Elevated trops 2. Chronic Hypercapnic respiratory failure 3. Obesity hypoventilation syndrome 4. Morbidly obese 5. Uncontrolled DM 6. VTE prophylaxis 7. HFpEF 8. hypothyroidism 9. Anemia 10. GI bleed (suspected/resolved) 11. Reflux esophagitis. Plan: H&H stable. s/p EGD and colonoscopy: unremakable - c/w PPIs added - Patient cleared for C. - cardiology recommendations appreciated - On aspirin, statin an a bb. - BP sub-optimally controlled. on amlodipine 10mg/PO daily, and furosemide. Metoprolol increased to 25mg/PO BID - Furosemide 40mg/PO BID. Fluids restriction to 1.5 litters a day, plus daily weight - On bronchodilators Q4RT Scheduled. on symbicort. - c/w prednisone to 30mg/PO daily. - empirically levofloxacin 750mg/PO daily. - c/w nocturnal BiPap. - Blood sugar sub-optimally controlled. levemir increased to 50 units BID, lispro ac 20 units. c/w lispro high dose sliding scale. - On levothyroxine 50 mcg/po daily - will resume chemical dvt prophylaxis. H&H stable, no signs of bleeding on EGD/colonoscopy. - On divalproex, lithium, risperidone and topiromate. Disposition: - Patient to remain in the hospital pending C. - Time Spent with Patient Total time spent is greater than 50% in coordination of care (as documented) at patient's floor/unit and/or counseling patient: Greater than 35 minutes (40) Plan of Care Discussed with: nurse Internal Medicine: Result - Labs CBC & Chem 7: 10/21/18 03:46 10/21/18 03:46 Labs: Short CBC 10/21/18 Range/Units 03:46 WBC 9.2 (4.3-11.1) K/mcL Hgb 8.9 L (11.5-15.4) g/dL Hct 30.0 L (35.3-44.9) % Plt Count 376 (140-400) K/mcL Neutrophils # 6.2 (1.6-8.9) K/mcL BMP 10/21/18 03:46 Sodium 135 L Potassium 4.9 Chloride 95 L Carbon Dioxide 39 H BUN 21 H Creatinine 0.85 Glucose 177 H Calcium 10.5 H - ABG Interpretation ABG results: ABG ABG pH 7.35 pH Units (7.32-7.45) 10/18/18 04:39 ABG pCO2 78 mmHg (35-45) H* 10/18/18 04:39 ABG pO2 81 mmHg (85-104) L 10/18/18 04:39 ABG O2 Saturation 95 % (95-98) 10/18/18 04:39 Consult Discharge Plan - Plan Referrals: NONE,PCP [Primary Care Provider] - (1) HTN (hypertension) Qualifiers: Hypertension type: essential hypertension Qualified Code(s): I10 - Essential (primary) hypertension (3) Congestive heart failure Qualifiers: Heart failure type: unspecified Heart failure chronicity: chronic Qualified Code(s): I50.9 - Heart failure, unspecified (8) Diabetes Qualifiers: Diabetes mellitus type: type 2 Diabetes mellitus fpc insulin use: unspecified moth exterminator insulin use status Diabetes mellitus complication status: with other specified complication Qualified Code(s): E11.69 - Type 2 diabetes mellitus with other specified complication
[2018-10-21] MEDS: *HR* Heparin 5,000 UNIT/ML VIAL SQ SCH ×2 (15:21→21:04)
[2018-10-21] MEDS: hydrALAZINE 25 MG TABLET PO SCH ×2 (16:26→23:04)
[2018-10-21] MEDS: Furosemide 40 MG TABLET PO SCH (16:41)
[2018-10-21] MEDS: Aspirin Enteric Coated 81 MG Tablet PO SCH (21:03)
[2018-10-21] MEDS: Melatonin 3 MG TABLET PO SCH (21:03)
[2018-10-21] MEDS: Lithium Oral Soln 300 MG/5 ML (8 mEq/5mL) UDC PO SCH (21:03)
[2018-10-22 05:13] LABS: Eosinophils % 0.7 %
[2018-10-22 05:14] LABS: Basophils % 0.4 %; Eosinophils # 0.1 K/mcL (0.0-0.6); Hematocrit 32.5 % (35.3-44.9); Hemoglobin 9.6 g/dL (11.5-15.4); Immature Granulocytes % 2.8 % (0-4); Lymphocytes % 11.9 %; Mean Corpuscular HGB Conc 29.5 g/dL (31.6-35.5); Mean Corpuscular Hemoglobin 28.4 pg (28.0-33.3); Mean Corpuscular Volume 96.2 fL (83.0-100.0); Monocytes # 0.3 K/mcL (0.0-1.3); Monocytes % 3.5 %; Neutrophils # 6.7 K/mcL (1.6-8.9); Platelet Count 375 K/mcL (140-400); Red Blood Count 3.38 M/mcL (3.82-4.97); Red Cell Distribution Width 14.6 % (11.5-14.5); Segmented Neutrophils % 80.7 %; White Blood Count 8.3 K/mcL (4.3-11.1)
[2018-10-22 05:30] LABS: Magnesium 1.8 mg/dL (1.6-2.6); Phosphorous 3.9 mg/dL (2.7-4.5)
[2018-10-22 05:41] LABS: Platelet Estimate Normal (Normal); Stomatocytes 2+ (Not Present)
[2018-10-22] MEDS: Budesonide/Formoterol 160/4.5 1 PUFF INH IH SCH ×2 (08:24→19:57)
[2018-10-22] MEDS: predniSONE 20 MG TABLET PO SCH (08:34)
[2018-10-22] MEDS: ARIPiprazole 10 MG TABLET PO SCH (08:35)
[2018-10-22] MEDS: RisperiDAL 3 MG TABLET PO SCH (08:36)
[2018-10-22] MEDS: Topiramate 25 MG TABLET PO SCH ×2 (08:36→16:05)
[2018-10-22] MEDS: Gabapentin 300 MG CAPSULE PO SCH ×2 (08:36→20:05)
[2018-10-22] MEDS: levoFLOXacin 750 MG TABLET PO SCH (08:36)
[2018-10-22] MEDS: Furosemide 40 MG TABLET PO SCH ×2 (08:37→16:05)
[2018-10-22] MEDS: Divalproex (12 HR) 500 MG TABLET PO SCH ×2 (08:37→20:05)
[2018-10-22] MEDS: hydrALAZINE 25 MG TABLET PO SCH ×3 (08:38→22:53)
[2018-10-22] MEDS: amLODIPine 5 MG TABLET PO SCH (08:38)
[2018-10-22] MEDS: Insulin LISPRO 300 UNITS/3 ML VIAL SQ SCH ×7 (08:39→20:20)
[2018-10-22] MEDS: *HR* Heparin 5,000 UNIT/ML VIAL SQ SCH ×3 (08:40→20:05)
[2018-10-22] MEDS: Insulin DETEMIR 100 UNIT/ML X5UNITS SQ SCH (08:43)
[2018-10-22] MEDS: Pantoprazole 40 MG VIAL IVP SCH (08:43)
[2018-10-22 09:32] LABS: BUN/Creatinine Ratio 27 (6-26); Blood Urea Nitrogen 28 mg/dL (6-20); Calcium 9.6 mg/dL (8.6-10.3); Carbon Dioxide 37 mEq/L (23-29); Chloride 92 mEq/L (98-107); Glucose 476 mg/dL (70-105); Osmolality,Calculated 302 (280-300); Potassium 5.6 mEq/L (3.5-5.1); Sodium 133 mEq/L (136-145); eGFR For African Americans > 60 (> 60); eGFR For Non-African Americans 55 (> 60)
--- NOTE | 2018-10-22 09:48 | Event Note ---
Date of Encounter: 10/22/18 Time of Encounter: 09:15 - Cardiology Event Note Laboratory Tests 10/22/18 10/22/18 04:46 08:50 Hgb 9.6 L Hct 32.5 L Creatinine 1.02 Est GFR (Non-Af Amer) 55 L Per review of medical records GI has cleared for [facility]. Discussed and reviewed with Dr. Mckenzie and per previous plan will proceed with [facility] in a.m.
--- NOTE | 2018-10-22 11:15 | Internal Med Progress Note ---
Hospitalist Progress Note - Encounter Date of Encounter: 10/22/18 Time of Encounter: 11:09 - Subjective Interval History: I have seen and evaluated the patient at bedside. patient reported feeling better today. she denies chest pain, shortness of breath, nausea or vomiting. denies abdominal pain or loose stool. - Exam Vitals: Temp Pulse Resp BP Pulse Ox 98.3 F 71 18 179/70 96 10/22/18 07:22 10/22/18 07:22 10/22/18 07:22 10/22/18 07:22 10/22/18 07:22 Exam: Vitals: Reviewed General: Morbidly obese, Alert and oriented x3. In no distress Cardiovascular: RRR, normal S1 & S2, no rubs, murmurs or gallops. Lungs: CTA b/l, no wheezes or crackles. Abdomen: Obese, soft, non-tender, no rigidity. NABS in all 4 quadrants. Extremities: No edema Neurological: No focal neurological abnormalities Rest of the physical exam is non contributory - Assessment and Plan (1) HTN (hypertension) Current Visit: Yes Status: Chronic (2) DVT prophylaxis Current Visit: Yes Status: Acute (3) Congestive heart failure Current Visit: Yes Status: Chronic (4) Acute on chronic respiratory failure with hypoxia and hypercapnia Current Visit: Yes Status: Resolved (5) Hypoventilation associated with obesity syndrome Current Visit: Yes Status: Acute (6) Morbid obesity with BMI of 60.0-69.9, adult Current Visit: Yes Status: Acute (7) Elevated troponin Current Visit: Yes Status: Acute (8) Diabetes Current Visit: Yes Status: Chronic (9) Hyperkalemia Current Visit: Yes Status: Acute (10) HLD (hyperlipidemia) Current Visit: No Status: Chronic (11) Hypothyroid Current Visit: No Status: Chronic (12) Morbid obesity with BMI of 50.0-59.9, adult Current Visit: No Status: Chronic - Summary of Assessment and Plan Summary of Assessment and Plan: 58 F w hx MRDD w appointed legal guardian, COPD and OHS c/b chronic hypercapneic resp failure on bipap qhs, HFpEF, HTN, HLD, DM2, GERD, morbid obesity, who was found unreponsive at [facility] and thus EMS called. They found her hypoxic at 78%; placed BiPAP on her with excellent recovery. Assessment: 1. Elevated trops 2. Chronic Hypercapnic respiratory failure 3. Obesity hypoventilation syndrome 4. Morbidly obese 5. Uncontrolled DM 6. VTE prophylaxis 7. HFpEF 8. hypothyroidism 9. Anemia 10. GI bleed (suspected/resolved) 11. Reflux esophagitis. 12. HFpEF 13. Hyperkalemia Plan: H&H stable. s/p EGD and colonoscopy: unremakable - change IV PPIs to oral - scheduled for LHC tomorrow morning - NPO at midnight - cardiology recommendations appreciated - c/w aspirin, statin an a bb. - BP sub-optimally controlled. on amlodipine 10mg/PO daily, and furosemide. Metoprolol 25mg/PO BID. Hydralazine 50mg/PO TID added. - Fluids restriction to 1.5 litters a day, plus daily weight - c/w bronchodilators Q4RT Scheduled. on symbicort. nocturnal BiPap - Decrease prednisone to 20mg/PO daily. - dc levofloxacin patient completed 6 days total of empiric antibiotics. - Blood sugar sub-optimally controlled. levemir increased to 55 units BID, lispro ac 25 units. c/w lispro high dose sliding scale. carbs controlled diet. - On levothyroxine 50 mcg/po daily - Heparin subq for dvt prophylaxis. - c/w divalproex, lithium, risperidone and topiromate. - Kayexalete ordered. repeat BMP at 5pm. Disposition: - Patient to remain in the hospital pending LHC. scheduled for LHC tomorrow. - Time Spent with Patient Total time spent is greater than 50% in coordination of care (as documented) at patient's floor/unit and/or counseling patient: Greater than 35 minutes (45) Plan of Care Discussed with: nurse Internal Medicine: Result - Labs CBC & Chem 7: 10/22/18 04:46 10/22/18 08:50 Labs: Short CBC 10/22/18 Range/Units 04:46 WBC 8.3 (4.3-11.1) K/mcL Hgb 9.6 L (11.5-15.4) g/dL Hct 32.5 L (35.3-44.9) % Plt Count 375 (140-400) K/mcL Neutrophils # 6.7 (1.6-8.9) K/mcL BMP 10/22/18 08:50 Sodium 133 L Potassium 5.6 H Chloride 92 L Carbon Dioxide 37 H BUN 28 H Creatinine 1.02 Glucose 476 H Calcium 9.6 - ABG Interpretation ABG results: ABG ABG pH 7.35 pH Units (7.32-7.45) 10/18/18 04:39 ABG pCO2 78 mmHg (35-45) H* 10/18/18 04:39 ABG pO2 81 mmHg (85-104) L 10/18/18 04:39 ABG O2 Saturation 95 % (95-98) 10/18/18 04:39 Consult Discharge Plan - Plan Referrals: NONE,PCP [Primary Care Provider] - (1) HTN (hypertension) Qualifiers: Hypertension type: essential hypertension Qualified Code(s): I10 - Essential (primary) hypertension (3) Congestive heart failure Qualifiers: Heart failure type: unspecified Heart failure chronicity: chronic Qualified Code(s): I50.9 - Heart failure, unspecified (8) Diabetes Qualifiers: Diabetes mellitus type: type 2 Diabetes mellitus intermediate designer insulin use: unspecified fci insulin use status Diabetes mellitus complication status: with other specified complication Qualified Code(s): E11.69 - Type 2 diabetes mellitus with other specified complication (10) HLD (hyperlipidemia) Qualifiers: Hyperlipidemia type: mixed hyperlipidemia Qualified Code(s): E78.2 - Mixed hyperlipidemia (11) Hypothyroid Qualifiers: Hypothyroidism type: acquired Qualified Code(s): E03.9 - Hypothyroidism, unspecified
[2018-10-22 18:27] LABS: Calcium 9.7 mg/dL (8.6-10.3); Potassium 4.7 mEq/L (3.5-5.1)
[2018-10-22] MEDS: Lithium Oral Soln 300 MG/5 ML (8 mEq/5mL) UDC PO SCH (20:05)
[2018-10-22] MEDS: Melatonin 3 MG TABLET PO SCH (20:06)
[2018-10-22] MEDS: Aspirin Enteric Coated 81 MG Tablet PO SCH (20:06)
[2018-10-22] MEDS ORDERED: Insulin DETEMIR 100 UNIT/ML X5UNITS SQ SCH (21:00)
[2018-10-23 03:34] LABS: Magnesium 1.8 mg/dL (1.6-2.6); Phosphorous 3.7 mg/dL (2.7-4.5)
[2018-10-23 04:05] LABS: Basophils % 0.3 %; Eosinophils # 0.1 K/mcL (0.0-0.6); Eosinophils % 0.5 %; Hemoglobin 9.6 g/dL (11.5-15.4); Immature Granulocytes % 2.3 % (0-4); Lymphocytes # 2.4 K/mcL (0.6-4.6); Lymphocytes % 21.9 %; Mean Corpuscular Hemoglobin 28.1 pg (28.0-33.3); Mean Corpuscular Volume 93.6 fL (83.0-100.0); Mean Platelet Volume 9.2 fL (9.4-12.4); Monocytes # 0.5 K/mcL (0.0-1.3); Monocytes % 4.3 %; Neutrophils # 7.8 K/mcL (1.6-8.9); Platelet Count 375 K/mcL (140-400); Red Blood Count 3.42 M/mcL (3.82-4.97); Red Cell Distribution Width 14.5 % (11.5-14.5); Segmented Neutrophils % 70.7 %
[2018-10-23] MEDS: *HR* Heparin 5,000 UNIT/ML VIAL SQ SCH ×2 (06:11→13:24)
[2018-10-23] MEDS: Budesonide/Formoterol 160/4.5 1 PUFF INH IH SCH (07:45)
[2018-10-23] MEDS ORDERED: hydrALAZINE 25 MG TABLET PO SCH (08:00)
--- NOTE | 2018-10-23 08:48 | Pre-Sedation Evaluation ---
Pre-sedation evaluation - Pre-sedation checklist Date of procedure: 10/23/18 Procedure: [facility] Recent Vitals: Last Vital Signs Temp 98.7 F 10/23/18 07:00 Pulse 85 10/23/18 07:00 Resp 16 10/23/18 07:00 BP 171/68 10/23/18 07:00 Pulse Ox 96 10/23/18 07:00 H&P (including ROS) documented in medical record: Yes Previous reaction to sedatives/anesthetics: No Dietary Status: NPO after Midnight Airway Assessment: Patient can open mouth completely, TMJ function normal ASA Classification *see protocol: CLASS II-Mild systemic disease Plan of Care: Pt appropriate candidate for procedure/moderate/conscious sedation, Risks/benefits of procedure/sedation discussed w/ patient/family Cardiac Registry (Cardio Only) - Functional Capacity Functional Capacity: >=4 METS with symptoms - Clincal Frailty Scale Clinical Frailty Scale: Managing Well
[2018-10-23] MEDS: ARIPiprazole 10 MG TABLET PO SCH (08:56)
--- NOTE | 2018-10-23 08:58 | Event Note ---
Date of Encounter: 10/23/18 Time of Encounter: 09:00 - Cardiology Event Note Laboratory Tests 10/22/18 10/23/18 08:50 03:00 Hgb 9.6 L Hct 32.0 L BUN 28 H Creatinine 1.02 Est GFR (Non-Af Amer) 55 L Selected Entries 10/23/18 07:00 Temperature 98.7 F Pulse Rate 85 Respiratory Rate 16 Blood Pressure 171/68 O2 Sat by Pulse Oximetry 96 Oxygen Flow Rate (LPM) 3 Oxygen Delivery Method Nasal Cannula Plan for [facility] today. SBP 160s/170s on Hydralazine, BB, and ACEI adjusted today per primary service. HAS-BLED Score - Score Hypertension: Uncontrolled,>160 mmhg systolic Bleeding: Prior major bleeding or predisposition to bleeding Medication usage predisposing to bleeding: Antiplatelet agents, NSAIDs, Anticoagulants Score: 3
[2018-10-23] MEDS: Gabapentin 300 MG CAPSULE PO SCH (08:59)
[2018-10-23] MEDS ORDERED: Insulin DETEMIR 100 UNIT/ML X5UNITS SQ SCH (09:00)
[2018-10-23] MEDS: Divalproex (12 HR) 500 MG TABLET PO SCH (09:00)
[2018-10-23] MEDS: Topiramate 25 MG TABLET PO SCH (09:00)
[2018-10-23] MEDS: RisperiDAL 3 MG TABLET PO SCH (09:00)
[2018-10-23] MEDS ORDERED: predniSONE 20 MG TABLET PO SCH (09:00)
[2018-10-23] MEDS: amLODIPine 5 MG TABLET PO SCH (09:01)
[2018-10-23] MEDS: Furosemide 40 MG TABLET PO SCH (09:06)
[2018-10-23] MEDS: Insulin LISPRO 300 UNITS/3 ML VIAL SQ SCH ×4 (09:08→12:08)
--- NOTE | 2018-10-23 09:08 | Discharge Summary ---
Orders not resulted at time of discharge: Pending orders 10/21/18 10:17 Surgical Pathology [PTH] Routine Date of Encounter: 10/23/18 Time of Encounter: 09:08 - Discharge Diagnosis (1) HTN (hypertension) Priority: Secondary Status: Chronic Qualifiers: Hypertension type: essential hypertension Qualified Code(s): I10 - Essential (primary) hypertension (2) DVT prophylaxis Priority: Secondary Status: Acute (3) Congestive heart failure Priority: Secondary Status: Chronic Qualifiers: Heart failure type: unspecified Heart failure chronicity: chronic Quali fied Code(s): I50.9 - Heart failure, unspecified (4) Acute on chronic respiratory failure with hypoxia and hypercapnia Priority: Primary Status: Resolved (5) Hypoventilation associated with obesity syndrome Priority: Secondary Status: Chronic (6) Morbid obesity with BMI of 60.0-69.9, adult Priority: Secondary Status: Chronic (7) Elevated troponin Priority: Primary Status: Acute (8) Diabetes Priority: Secondary Status: Chronic Qualifiers: Diabetes mellitus type: type 2 Diabetes mellitus intermediate frame tender insulin use: unspecified group home insulin use status Diabetes mellitus complication status: with other specified complication Qualified Code(s): E11.69 - Type 2 diabetes mellitus with other specified complication (9) Hyperkalemia Priority: Secondary Status: Resolved (10) HLD (hyperlipidemia) Priority: Secondary Status: Chronic Qualifiers: Hyperlipidemia type: mixed hyperlipidemia Qualified Code(s): E78.2 - Mixed hyperlipidemia (11) Hypothyroid Priority: Secondary Status: Chronic Qualifiers: Hypothyroidism type: acquired Qualified Code(s): E03.9 - Hypothyroidism, unspecified (12) Morbid obesity with BMI of 50.0-59.9, adult Priority: Secondary Status: Chronic Hospital course: Ms. Dill is a 58 year old female hx MRDD w appointed legal guardian, COPD and OHS c/b chronic hypercapneic resp failure on bipap qhs, HFpEF, HTN, HLD, DM2, GERD, morbid obesity, who was found unreponsive at [facility] and thus EMS called. They found her hypoxic at 78%; placed BiPAP on her with excellent recovery. Patient was admitted to the hospital due to hypoxic/hypercapnic respiratory failure. Patient was managed with IV steroids, non-invasive ventilation support and empiric antibiotics. During this admission patient was also found to have an elevated trops, cardiology consulted and patient underwent LHC: no intervention necessary. GI was consulted prior to LHC due to anemia and positive FOBT, patient underwent EGD: LA grade A esophagitis and normal stomach, jose examine duodenum. Colonoscopy: multiple sessile non-bleeding polyps found. H&H has remained stable. Patient acute symptoms on presentation have resolved, and patient is clinically stable to be discharged. - Time Spent with Patient Total time spent providing and/or coordinating discharge services: Time spent: Greater than 30 minutes (40) - Discharge Medications Prescriptions: New hydrALAZINE [HydrALAZINE] 100 mg PO Q8HR 30 Days #90 tablet amLODIPine [Norvasc] 10 mg PO DAILY 30 Days #30 tablet predniSONE [PredniSONE] 20 mg PO DAILY 2 Days #2 tablet predniSONE [PredniSONE] 10 mg PO DAILY 2 Days #2 tablet Budesonide/Formoterol 160/4.5 [Symbicort 160/4.5] 2 puff IH BIDR 30 Days #2 inh Continued Divalproex Sodium 1,000 mg PO BID Ranitidine HCl [Heartburn Relief] 150 mg PO BID Metformin HCl [Glucophage] 1,000 mg PO BID Gabapentin [Neurontin] 300 mg PO BID Furosemide [Lasix] 40 mg PO BID Topiramate [Topamax] 25 mg PO BIDWM [employer]-3/Dha/Epa/Fish Oil [[employer] 3 500 Softgel] 2 cap PO HS Melatonin 6 mg PO HS Loratadine [Allergy Relief] 10 mg PO DAILY Atorvastatin [Lipitor] 40 mg PO DAILY Levothyroxine [Synthroid] 50 mcg PO 0600 Aripiprazole [Abilify] 20 mg PO QAM Aspirin [Adult Aspirin Regimen] 81 mg PO HS Multivitamin [One Daily Essential] 1 tab PO DAILY Dulaglutide [Trulicity] 0.75 mg SQ BA[place]ISTA Ibuprofen [Ibu-200] 200 mg PO Q8H PRN PRN Reason: Pain Lactase [Lactaid] 3,000 unit PO Q6H PRN PRN Reason: Lactose Intolerance Metoprolol [Lopressor] 12.5 mg PO BID #60 tablet Cholecalciferol (Vitamin D3) [Vitamin D3] 2,000 unit PO DAILY Mag Hydrox/Al Hydrox/Simeth [Maalox] 30 ml PO Q4H PRN PRN Reason: gerd Lisinopril [Zestril] 40 mg PO DAILY [place] Carbonate 150 mg PO HS risperiDONE [Risperdal] 3 mg PO QAM Ipratropium/Albuterol Neb [Duoneb] 3 ml IH Q6HR PRN PRN Reason: Shortness Of Breath Guaifenesin [Mucus Relief] 400 mg PO DAILY HydrOXYzine Pamoate [Vistaril] 50 mg PO HS Insulin Glargine,Hum.rec.anlog [Basaglar Kwikpen U-100] 85 unit SQ 0600,1800 Insulin LISPRO [Humalog Kwikpen U-100] 24 unit SQ TID Insulin LISPRO [Humalog Kwikpen U-100] 17 unit SQ HS risperiDONE [Risperidone] 1 mg PO HS Home Medications: Aripiprazole [Abilify] 20 mg PO QAM 08/11/18 [History] Aspirin [Adult Aspirin Regimen] 81 mg PO HS 08/11/18 [History] Atorvastatin [Lipitor] 40 mg PO DAILY 08/11/18 [History] Divalproex Sodium 1,000 mg PO BID 08/11/18 [History] Dulaglutide [Trulicity] 0.75 mg SQ BAUTISTA 08/11/18 [History] Furosemide [Lasix] 40 mg PO BID 08/11/18 [History] Gabapentin [Neurontin] 300 mg PO BID 08/11/18 [History] Ibuprofen [Ibu-200] 200 mg PO Q8H PRN 08/11/18 [History] Lactase [Lactaid] 3,000 unit PO Q6H PRN 08/11/18 [History] Levothyroxine [Synthroid] 50 mcg PO 0600 08/11/18 [History] Loratadine [Allergy Relief] 10 mg PO DAILY 08/11/18 [History] Melatonin 6 mg PO HS 08/11/18 [History] Metformin HCl [Glucophage] 1,000 mg PO BID 08/11/18 [History] Multivitamin [One Daily Essential] 1 tab PO DAILY 08/11/18 [History] [employer]-3/Dha/Epa/Fish Oil [[employer] 3 500 Softgel] 2 cap PO HS 08/11/18 [History] Ranitidine HCl [Heartburn Relief] 150 mg PO BID 08/11/18 [History] Topiramate [Topamax] 25 mg PO BIDWM 08/11/18 [History] Metoprolol [Lopressor] 12.5 mg PO BID #60 tablet 08/17/18 [Rx] Cholecalciferol (Vitamin D3) [Vitamin D3] 2,000 unit PO DAILY 09/24/18 [History] Ipratropium/Albuterol Neb [Duoneb] 3 ml IH Q6HR PRN 09/24/18 [History] Lisinopril [Zestril] 40 mg PO DAILY 09/24/18 [History] [place] Carbonate 150 mg PO HS 09/24/18 [History] Mag Hydrox/Al Hydrox/Simeth [Maalox] 30 ml PO Q4H PRN 09/24/18 [History] risperiDONE [Risperdal] 3 mg PO QAM 09/24/18 [History] Guaifenesin [Mucus Relief] 400 mg PO DAILY 10/17/18 [History] HydrOXYzine Pamoate [Vistaril] 50 mg PO HS 10/17/18 [History] Insulin Glargine,Hum.rec.anlog [Basaglar Kwikpen U-100] 85 unit SQ 0600,1800 10/17/18 [History] Insulin LISPRO [Humalog Kwikpen U-100] 17 unit SQ HS 10/17/18 [History] Insulin LISPRO [Humalog Kwikpen U-100] 24 unit SQ TID 10/17/18 [History] risperiDONE [Risperidone] 1 mg PO HS 10/17/18 [History] Budesonide/Formoterol 160/4.5 [Symbicort 160/4.5] 2 puff IH BIDR 30 Days #2 inh 10/23/18 [Rx] amLODIPine [Norvasc] 10 mg PO DAILY 30 Days #30 tablet 10/23/18 [Rx] hydrALAZINE [HydrALAZINE] 100 mg PO Q8HR 30 Days #90 tablet 10/23/18 [Rx] predniSONE [PredniSONE] 10 mg PO DAILY 2 Days #2 tablet 10/23/18 [Rx] predniSONE [PredniSONE] 20 mg PO DAILY 2 Days #2 tablet 10/23/18 [Rx] Allergies/Adverse Reactions: Allergy/AdvReac Type Severity Reaction Status Date / Time benztropine Allergy See Verified 08/10/18 21:52 Comments chlorpromazine Allergy See Verified 08/10/18 21:52 [From Thorazine] Comments codeine Allergy See Verified 08/10/18 21:52 Comments haloperidol [From Haldol] Allergy See Verified 08/10/18 21:52 Comments lorazepam Allergy See Verified 08/10/18 21:52 Comments Penicillins Allergy See Verified 08/10/18 21:52 Comments Sulfa (Sulfonamide Allergy See Verified 08/10/18 21:52 Antibiotics) Comments Date of admission: 10/18/18 15:14 Primary care physician: PCP NONE Consults: 10/16/18 12:49 Consult to Cardiology [CONS] Routine Comment: Consulting Provider: Cardiology Iesha Reason for Consult: elevated trop felt 2/2 demand from hypoxia/hypercapnia but no previous ischemic eval other than recent TTE Call Completed: No 10/19/18 10:13 Consult to Gastroenterology [CONS] Routine Consulting Provider: Gastroenterology Iesha Reason for Consult: anemia, r/o bleed prior to [place] Call Completed: No - Constitutional Vitals: Temp Pulse Resp BP Pulse Ox 98.7 F 85 16 171/68 96 10/23/18 07:00 10/23/18 07:00 10/23/18 07:00 10/23/18 07:00 10/23/18 07:00 Exam: Vitals: Reviewed General: Morbidly obese, Alert and oriented x3. In no distress Cardiovascular: RRR, normal S1 & S2, no rubs, murmurs or gallops. Lungs: CTA b/l, no wheezes or crackles. Abdomen: Obese, soft, non-tender, no rigidity. NABS in all 4 quadrants. Extremities: No edema Neurological: No focal neurological abnormalities Rest of the physical exam is non contributory - Patient Status Disposition: Transfer SNF Condition: Good Functional capacity at discharge: uses cane/walker Overall status at discharge: patient is back to baseline - Discharge Instructions Instructions: Prednisone (By mouth), Hydralazine (By mouth), Amlodipine (By mouth), Budesonide/Formoterol (By breathing), Heart Failure (DC), Acute Respiratory Distress Syndrome (DC), Chronic Hypertension (DC), Anemia (GEN) Follow Up With: NONE,PCP [Primary Care Provider] - - Diet and Activity Activity: as per physical therapy Diet: diabetic diet, low salt diet
[2018-10-23] MEDS ORDERED: Lisinopril 20 MG TABLET PO SCH (09:15)
--- NOTE | 2018-10-23 09:26 | Physician Discharge Referral ---
ExtendedCare Referral Info Transfer To: f - Diagnosis (1) HTN (hypertension) Priority: Secondary Status: Chronic (2) DVT prophylaxis Priority: Secondary Status: Acute (3) Congestive heart failure Priority: Secondary Status: Chronic (4) Acute on chronic respiratory failure with hypoxia and hypercapnia Priority: Primary Status: Resolved (5) Hypoventilation associated with obesity syndrome Priority: Secondary Status: Chronic (6) Morbid obesity with BMI of 60.0-69.9, adult Priority: Secondary Status: Chronic (7) Elevated troponin Priority: Primary Status: Acute (8) Diabetes Priority: Secondary Status: Chronic (9) Hyperkalemia Priority: Secondary Status: Resolved (10) HLD (hyperlipidemia) Priority: Secondary Status: Chronic (11) Hypothyroid Priority: Secondary Status: Chronic (12) Morbid obesity with BMI of 50.0-59.9, adult Priority: Secondary Status: Chronic Prognosis: Fair Aware of Diagnosis: Family Aware of Prognosis: Family - Transfer Medications Prescriptions: hydrALAZINE [HydrALAZINE] 100 mg PO Q8HR 30 Days #90 tablet amLODIPine [Norvasc] 10 mg PO DAILY 30 Days #30 tablet predniSONE [PredniSONE] 10 mg PO DAILY 2 Days #2 tablet predniSONE [PredniSONE] 20 mg PO DAILY 2 Days #2 tablet Budesonide/Formoterol 160/4.5 [Symbicort 160/4.5] 2 puff IH BIDR 30 Days #2 inh Home Medications: Aripiprazole [Abilify] 20 mg PO QAM 08/11/18 [History] Aspirin [Adult Aspirin Regimen] 81 mg PO HS 08/11/18 [History] Atorvastatin [Lipitor] 40 mg PO DAILY 08/11/18 [History] Divalproex Sodium 1,000 mg PO BID 08/11/18 [History] Dulaglutide [Trulicity] 0.75 mg SQ BAUTISTA 08/11/18 [History] Furosemide [Lasix] 40 mg PO BID 08/11/18 [History] Gabapentin [Neurontin] 300 mg PO BID 08/11/18 [History] Ibuprofen [Ibu-200] 200 mg PO Q8H PRN 08/11/18 [History] Lactase [Lactaid] 3,000 unit PO Q6H PRN 08/11/18 [History] Levothyroxine [Synthroid] 50 mcg PO 0600 08/11/18 [History] Loratadine [Allergy Relief] 10 mg PO DAILY 08/11/18 [History] Melatonin 6 mg PO HS 08/11/18 [History] Metformin HCl [Glucophage] 1,000 mg PO BID 08/11/18 [History] Multivitamin [One Daily Essential] 1 tab PO DAILY 08/11/18 [History] [employer]-3/Dha/Epa/Fish Oil [[employer] 3 500 Softgel] 2 cap PO HS 08/11/18 [History] Ranitidine HCl [Heartburn Relief] 150 mg PO BID 08/11/18 [History] Topiramate [Topamax] 25 mg PO BIDWM 08/11/18 [History] Metoprolol [Lopressor] 12.5 mg PO BID #60 tablet 08/17/18 [Rx] Cholecalciferol (Vitamin D3) [Vitamin D3] 2,000 unit PO DAILY 09/24/18 [History] Ipratropium/Albuterol Neb [Duoneb] 3 ml IH Q6HR PRN 09/24/18 [History] Lisinopril [Zestril] 40 mg PO DAILY 09/24/18 [History] [place] Carbonate 150 mg PO HS 09/24/18 [History] Mag Hydrox/Al Hydrox/Simeth [Maalox] 30 ml PO Q4H PRN 09/24/18 [History] risperiDONE [Risperdal] 3 mg PO QAM 09/24/18 [History] Guaifenesin [Mucus Relief] 400 mg PO DAILY 10/17/18 [History] HydrOXYzine Pamoate [Vistaril] 50 mg PO HS 10/17/18 [History] Insulin Glargine,Hum.rec.anlog [Basaglar Kwikpen U-100] 85 unit SQ 0600,1800 10/17/18 [History] Insulin LISPRO [Humalog Kwikpen U-100] 17 unit SQ HS 10/17/18 [History] Insulin LISPRO [Humalog Kwikpen U-100] 24 unit SQ TID 10/17/18 [History] risperiDONE [Risperidone] 1 mg PO HS 10/17/18 [History] Budesonide/Formoterol 160/4.5 [Symbicort 160/4.5] 2 puff IH BIDR 30 Days #2 inh 10/23/18 [Rx] amLODIPine [Norvasc] 10 mg PO DAILY 30 Days #30 tablet 10/23/18 [Rx] hydrALAZINE [HydrALAZINE] 100 mg PO Q8HR 30 Days #90 tablet 10/23/18 [Rx] predniSONE [PredniSONE] 10 mg PO DAILY 2 Days #2 tablet 10/23/18 [Rx] predniSONE [PredniSONE] 20 mg PO DAILY 2 Days #2 tablet 10/23/18 [Rx] Allergies/Adverse Reactions: Allergy/AdvReac Type Severity Reaction Status Date / Time benztropine Allergy See Verified 08/10/18 21:52 Comments chlorpromazine Allergy See Verified 08/10/18 21:52 [From Thorazine] Comments codeine Allergy See Verified 08/10/18 21:52 Comments haloperidol [From Haldol] Allergy See Verified 08/10/18 21:52 Comments lorazepam Allergy See Verified 08/10/18 21:52 Comments Penicillins Allergy See Verified 08/10/18 21:52 Comments Sulfa (Sulfonamide Allergy See Verified 08/10/18 21:52 Antibiotics) Comments - Respiratory Orders Oxygen / L per min (2-3 litters) Smoking Cessation: Smoking cessation has been advised. For more information, call the [place] Tobacco Quit Line at 2-879-AGDO-NOW. - Advance Directives Code Status: Full Code - Mobility Orders Ambulate - Rehabiliation Orders Rehab Potential: Fair Rehab Orders: Evaluation for Physical Therapy, Evaluation for Occupational Therapy - Diet Orders Regular CERTIFICATION: I certify that the transfer of the above named patient to an Extended Care Facility is necessary for the continuing treatment of the diagnosis listed. The above information is true and accurate reflection of patient's current condition. Confidential - Redisclosure prohibited without a patient's written consent.
[2018-10-23] MEDS ORDERED: *HR* FentaNYL (PF) 100 MCG/2 ML VIAL ONE (10:06)
[2018-10-23] MEDS ORDERED: *HR* Midazolam HCl 2 MG/2 ML VIAL ONE ×2 (10:06→10:46)
[2018-10-23] MEDS ORDERED: *HR* Heparin 10,000 UNIT/10 ML VIAL ONE (10:07)
[2018-10-23] MEDS ORDERED: Nitroglycerin 1,000 MCG/10 ML VIAL IV ONE (10:07)
[2018-10-23] MEDS ORDERED: Iopamidol 125 ML INFUS..BTL ONE (10:07)
[2018-10-23] MEDS ORDERED: Heparin 1,000 UNITS/500 mL 500 ML ONE (10:07)
[2018-10-23] MEDS ORDERED: 0.9 % Sodium Chloride 1,000 ML ONE (10:07)
--- NOTE | 2018-10-23 11:48 | Invasive Diagnostic Lab Proc ---
Name: Mirella Dill Date of Study: 10/23/2018 Date: 1960 Ht: 57.1in Medical Record#: [id number] Age: 58 Wt: 277.78lb Gender: Female BSA: 2.07 Order #: [id number] BMI: 59.93 Physicians Procedure Physician: James Stoner MD, [facility] Referring MD: Referring MD: Staff Name Position Time In Patricia Jefferson RN Monitor 10:12 AM Selina Hernandez RT (R) Scrub 10:12 AM Ras Gold RN Coil Winder 10:12 AM Anaya Tejeda RT (R) 10:32 AM Procedures Performed Procedure L HRT ARTERY/VENTRICLE ANGIO Pre-Procedure Checklist Pt not NPO for procedure and MD aware. Blood Pressure: 171/68 Rhythm: NSR Plan of Care Patient will tolerate the procedure without complications. Adequate level of comfort will be maintained. Hemodynamics will remain stable Patient will recover from procedure without complications. Respiratory function will be maintained. Cardiac rhythm will remain stable. Patient temperature will be maintained. Patient and/or family have verbalized understanding of the procedure. Patient Education Developmentally Appropriate for Age: No Note: Pt MRDD Intravenous Access Time IV Size Location DC'd Fluid/Drip Rate Units RN 10:11 AM Extended peripheral IV Rt Arm Allergies Penicillins Sulfa (Sulfonamide Antibiotics) lorazepam haloperidol codeine Vital Signs Time BP (mmHg) HR (bpm) O2 Sat. RR (bpm) LOC 10:11 AM 171 / 68 85 96 % 0 10:41 AM / % 4 = Oriented but drowsy 10:42 AM / % 4 = Oriented but drowsy 10:57 AM / % 4 = Oriented but drowsy 10:40 AM 95 / 62 76 93 % 7 10:54 AM 110 / 47 79 89 % 19 10:59 AM 116 / 50 80 97 % 17 11:04 AM 116 / 49 81 97 % 23 11:09 AM 132 / 51 81 91 % 21 11:14 AM 115 / 51 84 % 30 11:24 AM 119 / 44 90 86 % 23 11:29 AM 134 / 49 89 91 % 23 Procedural Medications Time Medication Dose Units Method Given By 10:37 AM Oxygen 2 L/min nasal cannula Ras Gold RN 10:37 AM Versed 2 mg Intravenous Andexler, Ras S RN 10:37 AM Fentanyl 25 mcg Intravenous Andexler, Ras S RN 10:47 AM Versed 1 mg Intravenous Ras Gold RN 10:47 AM Fentanyl 25 mcg Intravenous Ras Gold RN 11:06 AM Lidocaine 2% 20 ml Subcutaneous James Stoner MD, [facility] 11:06 AM Versed 1 mg Intravenous Ras Gold RN 11:06 AM Fentanyl 25 mcg Intravenous Ras Gold RN ASA Classification: CLASS II- Mild systemic disease (i.e. well-controlled diabetes, hypertension, asthma, cigarette smoking) Cirilo Score Preprocedure Postprocedure Activity Activity Circulation Circulation Consciousness Consciousness O2 Saturation O2 Saturation Respiratory Respiratory Total Score Total Score Contrast Agent: Isovue Diagnostic Contrast: 75 ml Total Contrast: 75 ml Fluoro Dose: 28 mGy Procedure Log Time Note Enter By 10:12 AM Patricia Jefferson RN Position: [facility]12 [facility] Selina Hernandez RT (R) Position: Scrub Time in: 10:12 [facility] 10:12 AM Ras Gold RN Position: Coil Winder Time in: 10:12 [facility] 10:12 AM [facility]Stat 10:32 AM [facility] 10[facility] AM Patient charges- Angio tray pack, Navilyst 3mm J, Pulse Oximetry and ACIST tubing and transducer [facility] 10:32 AM Anaya Tejeda RT (R) Position: Time in: 10:32 tsmmers 10:32 AM Physician arrived 10:32 [facility] 10:36 AM Meet and greet completed [facility] 10:36 AM Sign in performed according to hospital policy. Informed consent was obtained. [facility] 10:36 AM Procedure start 10:36 [facility] 10:37 AM Time: 10:37 Oxygen on at 2 L/min per nasal cannula by Ras Gold RN [facility] 10:37 AM Time: 10:37 Versed 2 mg Intravenous Given by [facility] 10:[facility] AM Time: 10:37 Fentanyl 25 mcg Intravenous Given by Ras Gold RN juarezkiah 10:39 AM Vitals capture started with the following parameters, Patient=Adult, Interval=5 min, Initial Yokaqflw=790 mmHg, Deflation Rate=3 mmHg, Cuff placed on Right Arm 10:40 AM HR=76 bpm, NIBP=95/62 mmhg, SpO2=93.0 %, Resp=7 B/min 10:41 AM Hair removed from procedure site in procedure lab using clippers. Bilateral groin prepped with Chloraprep by Anaya Tejeda (R), then patient was draped. Skin intact. tsoummers 10:41 AM Time: 10:41 Patient comfortable and pain free: Yes tsoummers 10:42 AM Time: 10:LOC: 4 = Oriented but drowsy tsoummers 10:46 AM pt moving on table. Noncompliant tsoummers 10:47 AM Time: 10:47 Versed 1 mg Intravenous Given by Ras Gold RN oummkiah 10:47 AM Time: 10:47 Fentanyl 25 mcg Intravenous Given by Ras Gold RN tsjuarezkiah 10:47 AM Vitals capture stopped. 10:47 AM Recorded ECG: HR=78 Condition=Condition 1 10:47 AM Vitals capture started with the following parameters, Patient=Adult, Interval=5 min, Initial Gqzofxuq=647 mmHg, Deflation Rate=3 mmHg, Cuff placed on Right Arm 10:50 AM Vitals capture stopped. 10:50 AM ASA Class CLASS II- Mild systemic disease (i.e. well-controlled diabetes, hypertension, asthma, cigarette smoking) tsoummers 10:52 AM Vitals capture started with the following parameters, Patient=Adult, Interval=5 min, Initial Eaxvjfry=861 mmHg, Deflation Rate=3 mmHg, Cuff placed on Right Arm 10:54 AM HR=79 bpm, OEFJ=588/47 mmhg, SpO2=89.0 %, Resp=19 B/min 10:57 AM Time: 10:41 Patient comfortable and pain free: Yes tsoummers 10:57 AM Time: 10:42LOC: 4 = Oriented but drowsy tsoummers 10:57 AM Pressure channel 1 zero failed. 10:57 AM Pressure channel 1 zeroed. 10:59 AM HR=80 bpm, MSPY=036/50 mmhg, SpO2=97.0 %, Resp=17 B/min 11:04 AM HR=81 bpm, LBIS=896/49 mmhg, SpO2=97.0 %, Resp=23 B/min 11:05 AM Time out was performed according to hospital policy. Conscious sedation and anesthesia was achieved (see medication log with in this report above) [facility] 11:06 AM Time: 11:06 20 ml Lidocaine 2% to right groin Subcutaneous Given by James Stoner MD, [facility] 11:06 AM Time: 11:06 Versed 1 mg Intravenous Given by [facility] 11: AM Time: 11:06 Fentanyl 25 mcg Intravenous Given by Ras Gold RN [facility] 11:07 AM Micro-Introducer Kit utilized for sheath placement [facility] 11:08 AM Unsuccessful access attempt # 1 into the right Femoral artery. Manual pressure applied to achieve hemostasis.. [facility] 11:09 AM HR=81 bpm, VBLT=517/51 mmhg, SpO2=91.0 %, Resp=21 B/min 11:11 AM Access obtained by percutaneous puncture. 5Fr 10cm Terumo [place] sheath placed in right Femoral artery. [id number] [facility] 11:11 AM 0.035 145cm Navilyst 3mmJ wire [id number] [facility] 11:11 AM 5Fr FL 4 catheter inserted over the wire [facility] 11:12 AM Time: 10:57LOC: 4 = Oriented but drowsy [facility] 11:12 AM Time: 10:57 Patient comfortable and pain free: Yes [facility] 11:12 AM wire removed [facility] 11:12 AM LCA angiography performed in multiple views. [facility] 11:12 AM Recorded Pressure: Ao, HR=83, Condition=Condition 1 (Aorta) Ao 111/53/76 11:14 AM HR=84 bpm, WWJW=671/51 mmhg, Resp=30 B/min 11:16 AM Catheter removed [facility] 11:16 AM 5Fr FR 4 catheter inserted over the wire [facility] 11:17 AM RCA angiography performed in multiple views. [facility] 11:17 AM Recorded Pressure: Ao, HR=88, Condition=Condition 1 (Aorta) Ao 89/58/73 11:17 AM Coronary Dominance: right [facility] 11:18 AM Catheter removed [facility] 11:18 AM 5Fr Pigtail catheter inserted over the wire [facility] 11:18 AM Catheter crossed the aortic valve and was selectively placed in the left ventricle. Pressures recorded on pullback for left heart catheterization. 11:19 AM Recorded Pressure: LV, HR=90, Condition=Condition 1 (Left Ventricle) LV 134/1/15 11:20 AM Bolus angiogram of left Ventricle complete: 12 ml/sec for a total of 30 mls 11:21 AM Catheter removed 11: AM Procedure completed at :10/23/2018[facility] 11:21 AM Bolus angiogram of right Femoral complete: 4 ml/sec for a total of 7 mls [facility] 11: AM Procedure completed at :10/23/2018[facility] 11:22 AM Did you address SUJATA flow and Dominance? YesCoronary Dominance: right [facility] 11:23 AM Sign out completed: Radiation Dose 199.66 mGy, 27.6 Gy/cm2 Fluoro Time: 1.1 Isovue 370 - 200ml contrast 75 ml given by James Stoner MD, [facility]. Complications: None. 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 Sedation minutes 50. Cardiac Rehab Consult needed: No. Confirmed administered medications: Yes [facility] 11:23 AM Arterial sheath pulled, Mynx closure device used and was Successful [id number] S/N. mm 11:23 AM Estimated Blood Loss: minimal [facility] 11:24 AM Post ECG NSR [facility] 11:24 AM HR=90 bpm, WJGB=497/44 mmhg, SpO2=86.0 %, Resp=23 B/min 11:25 AM Post Blood Pressure 119/44 [facility] 11:25 AM Information taught Cardiac Cath and Mynx [facility] 11:25 AM Education needs Procedure, Plan of Care, and Responsibilities of Patient in Care [facility] 11:26 AM Learning barriers :Cognitive [facility] 11:26 AM Education Methods Verbal [facility] 11:26 AM Site status No bleeding/ No Hematoma - Rt Groin as reported by Selina Hernandez RT (R) at 11:26 nathalia 11:26 AM Opsite applied [facility] 11:26 AM Plavix, Effient or Brilinta given No tsoummers 11:26 AM Delay to floor No tsoummers 11:26 AM Family placed in consult room. chrismmers 11:29 AM unable to record pullback due to merge failure and shutdown during LV pullback tsoummers 11:29 AM HR=89 bpm, KXPZ=068/49 mmhg, SpO2=91.0 %, Resp=23 B/min 11:30 AM Patient out of room: 11:30 nathalia 11:36 AM Report given to pamela DEAN Pt taken to E Room #30. 11:32 nathalia Complications Complication None Hemodynamics Pressures Site Systolic/A Wave Diastolic/V Wave Mean AO 111 53 76 AO 89 58 73 LV 134 1 15 Post Procedure Information Blood Pressure: 119/44 mmHg Rhythm: NSR Post procedural instructions were given Closure Device Time Device Success/Fail 10/23/2018 11:26:00 AM MynxGrip Successful Site Checks Time Location Status Staff Sheath In? Note 11:26 AM Rt Groin No bleeding/ No Hematoma Selina Hernandez RT (R) Pulses Updated by Patricia Jefferson RN on 10/23/2018 11:39:01 AM electronically signed on 10/23/2018 11:39:20 AM with status of Final
--- NOTE | 2018-10-23 12:01 | Event Note ---
Date of Encounter: 10/23/18 Time of Encounter: 11:59 - Cardiology Event Note LHC completed with no interventions necessary per Dr. Stoner. Cardio will sign off at this time.
[2018-10-23 13:44] VITALS: BP 130/58
== END 2018-10-23 17:31 | DRG 189 ==
LOC: 2NENU → SUATTDRO 12:19
PROVIDERS: ADMIT Internal Medicine; ATTEND Internal Medicine
PROC: ENDOCBX (2018-10-21 09:35)
PROC: ENDOEBX (2018-10-21 09:35)